=== PATIENT | female | born 1945 | race Caucasian/White ===

== ENCOUNTER 2019-08-12 15:40 | Inpatient (IN) | payer MEDICARE, SELFPAY ==
--- NOTE | ~2019-08-12 | CT_ITS ---
EXAMINATION:CT chest w con DATE: 08/14/2019 11:54 INDICATION: Hemoptysis. TECHNIQUE: Computed tomography (CT) of the chest was performed with 75 mg Omnipaque 350 intravenous c ontrast. Automated exposure control and iterative reconstruction technique were employed. The dose-le ngth product (DLP) was 212.71 mGy-cm. COMPARISON: CT abdomen and pelvis 08/12/2019 FINDINGS: The lungs demonstrate mild atelectasis. There is chronic elevation of right hemidiaphragm. No pleural effusion. The heart size is normal. There are coronary artery calcifications. No pericardi al effusion. There is contrast in the gallbladder, which is normal in size. There is thoracolumbar le voscoliosis and severe spondylosis. IMPRESSION: 1. No etiology for the patient's symptoms. Reviewed, dictated and finalized at location A. RINARY PATHOLOGIST
--- NOTE | ~2019-08-12 | XR_ITS ---
EXAMINATION: XR UGI w small bowel DATE: 08/13/2019 15:56 INDICATION: Lower abdominal pain with questionable small bowel wall thickening on CT TECHNIQUE: The patient drank thick barium. Conventional supine abdomen radiographs and fluoroscopy of the esophagus, stomach, and small bowel were performed. Fluoroscopy exposure time was 3.8 minutes. T he DAP for this procedure was 49.672 Gycm2. COMPARISON: CT from yesterday FINDINGS: UPPER GASTROINTESTINAL SERIES: There is no mass or stricture of the esophagus. Esophageal motility is normal. There is no hiatal her cristina. There was no gastroesophageal reflux with provocative maneuvers. The stomach shows a normal fold ing pattern. SMALL BOWEL SERIES: Transit time from the stomach to proximal colon was approximately 90. There is normal caliber and muc osal fold pattern throughout the small bowel. Terminal ileum is normal. No definite small bowel wall thickening is identified. No tethering or abnormal mass effect observed upon the small bowel with re al-time fluoroscopy. IMPRESSION: 1. Unremarkable examination. Reviewed, dictated and finalized at location A. OL PSYCHOMETRIST
--- NOTE | ~2019-08-12 | CT_ITS ---
EXAMINATION: CT abdomen pelvis w con DATE: 08/12/2019 19:54 INDICATION: Lower abdominal pain TECHNIQUE: Computed tomography (CT) of the abdomen and pelvis was performed with 100 mL Omnipaque-350 intravenous contrast. Automated exposure control and iterative reconstruction technique were employe d. The dose-length product was 480.76 mGy-cm. COMPARISON: 11/20/2016 FINDINGS: Elevation of the right hemidiaphragm. Bronchiectasis and mild dependent atelectasis the bilateral low er lobes. Heart size is normal. No pericardial or pleural effusion. No significant interval change in a 2.1 x 1.6 cm mixed fat and soft tissue density subareolar mass at the right breast. Liver, gallbla dder, spleen, pancreas and bilateral adrenal glands and kidneys are normal. A couple small fat-contai alma supraumbilical ventral hernias. Normal appendix. There is mild to moderate scattered colonic div erticulosis without adjacent inflammatory change to suggest diverticulitis. Anastomotic suture line a t the distal sigmoid colon. There is edematous wall thickening along the few loops of small bowel in the deep pelvis. No pneumatosis or bowel obstruction. The uterus is not identified and has likely bee n surgically resected. Bilateral adnexa are unremarkable. Bladder appears normal however portions of the bladder and right side of the deep pelvis are obscured by dense metallic streak artifact from a r ight total hip arthroplasty. No free intraperitoneal gas or fluid. No pathologically enlarged abdomin al or pelvic lymphadenopathy. There is mild scattered calcified atherosclerosis of the normal caliber aorta and a few of the other arteries. Mild S-shaped scoliosis and severe spondylosis of the thoraco lumbar spine. IMPRESSION: 1. Wall thickening of a few loops of small bowel in the deep pelvis consistent with enteritis which c ould be infectious, inflammatory or ischemic in etiology. 2. No significant interval change in a 2.1 x 1.6 cm right breast mass which favors a benign etiology but would recommend correlation with mammography. 3. Mild diverticulosis with a masslike suture line at the distal sigmoid colon suggesting prior sigmo idectomy. Reviewed, dictated and finalized at location A. BASE SECURITY ADMINISTRATOR IMPRESSION: 1. Wall thickening of a few loops of small bowel in the deep pelvis consistent with enteritis which could be infectious, inflammatory or ischemic in etiology. 2. No significant interval change in a 2.1 x 1.6 cm right breast mass which fav ors a benign etiology but would recommend correlation with mammography. 3. Mild diverticulosis with a masslike suture line at the distal sigmoid colon suggesting prior sigmoidectomy.
[2019-08-12 16:41] VITALS: BP 115/74; PULSE 84; RESP 16; TEMP 37.1; O2SAT 97
[2019-08-12 16:55] LABS: Basophils Absolute Auto 0.1 K/mm3 (0.0-0.1); Eosinophils Absolute Auto 0.2 K/mm3 (0-0.3); Eosinophils Percent Auto 2.9 % (0-4.4); Hematocrit 38.4 % (37.0-47.0); Hemoglobin 12.4 g/dL (12.0-15.0); Immature Granulocyte Absolute 0.01 K/mm3 (0.00-0.031); Immature Granulocyte Percent A 0.2 % (0-0.5); Lymphocytes Absolute Auto 1.64 K/mm3 (0.9-3.2); Lymphocytes Percent Auto 26.6 % (18.3-44.2); Mean Corpuscular HGB Conc 32.3 g/dl (32-36); Mean Corpuscular Hemoglobin 31.7 pg (26-34); Mean Corpuscular Volume 98.2 fl (80-100); Mean Platelet Volume 9.4 fl (7.4-10.4); Monocytes Absolute Auto 0.4 K/mm3 (0.1-0.6); Monocytes Percent Auto 6.5 % (2.6-8.5); Neutrophils Absolute Auto 3.9 K/mm3 (1.3-6.7); Neutrophils Percent Auto 62.8 % (45.5-73.1); Platelet Count Result 215 k/mm3 (150-375); Red Blood Count 3.91 M/mm3 (4.2-5.4); White Blood Count 6.2 K/mm3 (4.5-10.0)
[2019-08-12 17:13] LABS: Alanine Aminotransferase 22 U/L (4-35); Albumin Level 4.2 g/dL (3.5-5.1); Alkaline Phosphatase 79 U/L (38-126); Aspartate Amino Transferase 30 U/L (14-36); Bilirubin,Total 0.8 mg/dL (0.2-1.3); Blood Urea Nitrogen 23 mg/dL (7-17); Calcium 9.4 mg/dL (8.4-10.2); Carbon Dioxide 30 mmol/L (22-30); Chloride 100 mmol/L (98-107); Estimated CRCL calculation 31 ml/min; Estimated Glomerular Filt Rate 44; Glucose 89 mg/dL (65-105); Lipase 101 U/L (23-300); Potassium 4.4 mmol/L (3.4-5.0); Sodium 139 mmol/L (137-145)
[2019-08-12 18:11] LABS: Add Urine Microscopic? YES; Appearance Urine Clear (Clear); Bilirubin Urine Negative (Negative); Blood Urine Negative (Negative); Calcium Oxalate Crystals Urine Present /hpf; Color Urine Yellow (Yellow); Glucose Urine UA Negative (Negative); Ketones Urine Trace mg/dL (Negative); Leukocyte Esterase Ur 1+ LEU/UL (Negative); Mucus Urine Few /lpf; Nitrate Urine Negative (Negative); Protein Urine Negative (Negative); Specific Grav Ur 1.025 (1.001-1.035); Squamous Epithelial Cell Urine Few /hpf (Few); Urobilinogen Urine Negative mg/dL (<2.0)
--- NOTE | 2019-08-12 18:25 | ED.ABDPAIN ---
HPI - Abdominal Pain General Chief Complaint: Abdominal Pain Stated Complaint: abd pain Time Seen by Provider: 08/12/19 18:17 Source: patient and RN notes reviewed Mode of arrival: other Limitations: no limitations History of Present Illness HPI narrative: Pt is a 74 y/o female who presents to the ED with c/o mild lower abdominal pain that began Monday (08/10/19) evening. Pt states that her last BM was Monday. She believes that she may be constipated. Pt also reports hematochezia with blood clots present and two episodes of vomiting Monday, but denies dysuria. MD elicited complaint: abdominal pain Pertinent past history: constipation and diverticulitis Onset (ago): day(s) (2) Pain Consistency: constant Location: other (lower) Severity: mild Relieving factors: nothing Associated symptoms: vomiting (with two episodes on Monday (08/10/19)) and hematochezia (with blood clots present on Monday (08/10/19)) Related Data Allergies Allergy/AdvReac Type Severity Reaction Status Date / Time lidocaine Allergy Severe BECAME Verified 08/12/19 18:05 VERY SHAKEY, WENT TO ER adhesive tape Allergy Intermediate RASH Verified 08/12/19 18:05 codeine AdvReac Unknown KEEPS HER Verified 08/12/19 18:05 AWAKE Review of Systems Review of Systems: All systems reviewed & are unremarkable except as noted in HPI and below Gastrointestinal: Gastrointestinal: Reports abdominal pain (lower), Reports hematochezia (with blood clots present on Monday (08/10/19)) and Reports vomiting (two episodes on Monday (08/10/19)) Genitourinary: Genitourinary: Denies dysuria [facility] Past Medical History Medical History (Updated 08/12/19 @ 23:04 by Suhas Ernst MD) Anxiety Arthritis Bronchitis Carpal tunnel syndrome Colitis Constipation Cystocele DDD (degenerative disc disease) Depression Diverticulitis Dry eyes GERD (gastroesophageal reflux disease) HTN (hypertension) IBS (irritable bowel syndrome) Psoriasis (a type of skin inflammation) Rectal polyp Rectocele Volvulus Surgical History Surgical History (Updated 08/12/19 @ 18:49 by Jeanie Gambino) H/O colonoscopy History of bladder surgery History of carpal tunnel release History of colon resection History of hysterectomy History of right hip replacement Hx of tonsillectomy Social History Social History (Updated 08/12/19 @ 18:49 by Jeanie Gambino) Smoking status: Never smoker Exam Const: General: healthy appearing, no acute distress and well developed Nutritional Appearance: well nourished Orientation/consciousness: patient oriented x3 (alert) and Other orientation findings (Alert) Limitations: no limitations HENMT: Head: normocephalic and atraumatic Ears: external ears normal General nose exam: No nasal discharge present and no epistaxis Face and sinus: face symmetric Mouth: Yes lip normal, Yes tongue normal and Yes moist mucous membranes Throat: other (No exudate, no erythema) Eyes: Conjunctivae: conjunctivae normal Sclera: sclerae normal EOM: EOMs intact bilaterally Neck: Neck: full ROM, no lymphadenopathy and supple Thyroid: thyroid normal Chest: Chest palpation & inspection: no tenderness Resp: Effort & Inspection: normal respiratory effort Auscultation: clear to auscultation bilaterally, no rales, no rhonchi, no wheezes and other (breath sounds equal) Cardio: Rate: regular rate Rhythm: regular rhythm Heart sounds: no gallops and no murmurs GI: Inspection: non-distended GI Palp: Yes abdominal tenderness (mild lower), No Guarding due to palpation present (GI) and No Rebound tenderness present Auscultation: other (bowel sounds present) : General: Yes no CVA tenderness Back/Spine/Pelvis: Back: no CVA tenderness Thoracic/Lumbar Spine: thoracic and lumbar spine normal to inspection Skin: General skin exam: normal color and no rashes or lesions noted Neuro: General: patient oriented x3 (alert), moves all extremities and no focal motor de
[2019-08-12 20:17] VITALS: BP 134/80; PULSE 84; RESP 16; O2SAT 98
[2019-08-12] MEDS: LACTATED RINGERS 1,000 ML 999 ML IV CONT (22:07)
[2019-08-12 22:10] LABS: Lactic Acid Reflex 0.9 mmol/L (0.7-2.1)
[2019-08-12 22:47] LABS: Base Excess ABG 1.9 mEq/l (+/-2.0); Fractional Inspired Oxygen 21 %; Oxygen Content ABG 16.7 %vol (16.0-22.0); Oxygen Saturation ABG 97.1 % (95.0-100.0); PCO2 ABG 34.1 mmHg (35.0-45.0); PO2 ABG 84.9 mmHg (80.0-100.0); PO2 FiO2 Ratio Arterial Blood 4.04 %; Total Hemoglobin 12.3 g/dL (12.0-18.0); pH ABG 7.483 (7.350-7.450)
[2019-08-12 22:48] LABS: Device ROOM AIR; Modified Allen's Test Pass; Site Drawn RIGHT RADIAL
[2019-08-12 23:40] VITALS: BP 145/76; PULSE 81; RESP 16; TEMP 36.2; O2SAT 100
[2019-08-12 23:58] VITALS: BP 145/86; PULSE 81; RESP 18; TEMP 36.1; O2SAT 100
[2019-08-13 00:07] VITALS: BP 155/84; PULSE 71; RESP 16; TEMP 36.1; O2SAT 99; BMI 26.2
--- NOTE | 2019-08-13 00:07 | ADMGEN ---
This patient, Alisas Velarde, was admitted to Medical Room 348-01. Patient/family oriented to hospital policies and general routines including ID bracelet, bed and alarms, visiting hours, pain management, procedures, bathroom and other care routines, personal items, smoking policy, room service/diet, and visiting hours. Valuables list has been completed. Information on how to activate the Rapid Response Team has been discussed. Patient/Family are encouraged to report perceived risks to care and to ask questions if they do not understand what they are told or what they should do.
[2019-08-13] MEDS: LACTATED RINGERS 1,000 ML 125 ML IV CONT ×2 (00:45→17:13)
[2019-08-13 04:00] VITALS: BP 122/70; PULSE 58; RESP 16; TEMP 36.2; O2SAT 98
[2019-08-13 06:34] LABS: Basophils Absolute Auto 0.1 K/mm3 (0.0-0.1); Basophils Percent Auto 1.2 % (0.2-1.2); Eosinophils Absolute Auto 0.3 K/mm3 (0-0.3); Eosinophils Percent Auto 4.8 % (0-4.4); Hematocrit 32.5 % (37.0-47.0); Hemoglobin 10.6 g/dL (12.0-15.0); Immature Granulocyte Absolute 0.02 K/mm3 (0.00-0.031); Immature Granulocyte Percent A 0.4 % (0-0.5); Lymphocytes Absolute Auto 1.96 K/mm3 (0.9-3.2); Lymphocytes Percent Auto 37.7 % (18.3-44.2); Mean Corpuscular HGB Conc 32.6 g/dl (32-36); Mean Corpuscular Volume 98.2 fl (80-100); Mean Platelet Volume 9.3 fl (7.4-10.4); Monocytes Absolute Auto 0.5 K/mm3 (0.1-0.6); Monocytes Percent Auto 9.4 % (2.6-8.5); Neutrophils Absolute Auto 2.4 K/mm3 (1.3-6.7); Neutrophils Percent Auto 46.5 % (45.5-73.1); Platelet Count Result 184 k/mm3 (150-375); Red Blood Count 3.31 M/mm3 (4.2-5.4); Red Cell Distribution Width 12.8 % (11.5-14.5); White Blood Count 5.2 K/mm3 (4.5-10.0)
[2019-08-13 06:44] LABS: Blood Urea Nitrogen 22 mg/dL (7-17); Calcium 8.6 mg/dL (8.4-10.2); Carbon Dioxide 27 mmol/L (22-30); Chloride 103 mmol/L (98-107); Estimated CRCL calculation 33 ml/min; Estimated Glomerular Filt Rate 48; Glucose 103 mg/dL (65-105); Potassium 3.8 mmol/L (3.4-5.0); Sodium 138 mmol/L (137-145)
[2019-08-13 08:42] VITALS: BP 146/74; PULSE 65; RESP 18; TEMP 37.4; O2SAT 97
[2019-08-13] MEDS: metroNIDAZOLE 500 MG/ISO 100ML 500 MG/100 ML BAG 100 MG IVPB ×2 (11:30→17:10)
--- NOTE | 2019-08-13 12:30 | WPDGICN ---
Assessment and Plan Additional Plan This is a 74-year-old white female patient I am asked to see at the request of the hospitalist service. Patient admitted to the hospital yesterday from the emergency room. Patient reports over the last 2 weeks has had vague lower abdominal cramping. On Monday 2 days ago she developed vomiting.. She has not had a bowel movement for 2 weeks. At home she takes lactulose and Citrucel for her constipation. She presented to the emergency room last evening. CT scan suggested nonspecific small-bowel thickening. She also had thickening in the sigmoid where she previously had an anastomosis. Past medical history is significant for screening colonoscopy 2016 that was unremarkable. She recently had endoscopy by Dr. Bell in [place] for silent aspiration . Apparently this was unremarkable. She is uncertain whether she received any treatment for this. She reports having a twisted colon for which she had a sigmoid resection. She is chronically constipated for which she takes Citrucel and lactulose. Family history is noncontributory. Past medical history is significant for anxiety. Chronic constipation. Possible silent acid reflux. She has been treated for irritable bowel syndrome she has a distant history of diverticulitis. Current medications as listed include lactulose methotrexate, Reglan, famotidine, Prilosec, Cymbalta, allergies include lidocaine and codeine. Physical exam reveals her to be alert. Vital signs stable. She is anicteric. HEENT exam unremarkable. Lungs are clear to auscultation and percussion none. Heart is without murmur or extra sounds. Abdomen bowel sounds are present soft nontender with no hepatosplenomegaly. Rectal exam unremarkable. Impression 1. Abdominal pain. Pain now resolved. Clinically most likely related to constipation. She has had no bowel movement for [address] scan is reported from the emergency room suggesting nonspecific small-bowel thickening. And also thickening in area of prior sigmoid resection. These findings are nonspecific. Cannot be overlooked. Plan is for laxatives and small-bowel series. Colonoscopy will not be repeated unless bowel habits failed to improve or symptoms persist. 2. Abnormal CT scan. See above discussion. 3. Chronic constipation. Likely accounts for her abdominal pain. 4. Silent acid reflux. Recently described by a other gastroenterology service. 5. History of sigmoid volvulus. Status post sigmoid resection. Plan is for trial of laxatives and a small-bowel follow-through. We will follow with you. No obvious infection evident at this time. GI Consult Note Consult date/time: 08/13/19 12:30 HPI: Alissa Velarde is a 74 year old female [facility] Past Medical History Medical History (Updated 08/12/19 @ 23:04 by Suhas Ernst MD) Anxiety Arthritis Bronchitis Carpal tunnel syndrome Colitis Constipation Cystocele DDD (degenerative disc disease) Depression Diverticulitis Dry eyes GERD (gastroesophageal reflux disease) HTN (hypertension) IBS (irritable bowel syndrome) Psoriasis (a type of skin inflammation) Rectal polyp Rectocele Volvulus Surgical History Surgical History (Updated 08/12/19 @ 18:49 by Jeanie Gambino) H/O colonoscopy History of bladder surgery History of carpal tunnel release History of colon resection History of hysterectomy History of right hip replacement Hx of tonsillectomy Social History Social History (Updated 08/12/19 @ 18:49 by Jeanie Gambino) Smoking status: Never smoker Second hand tobacco smoke exposure: No Alcohol intake: never Substance use: never Gender identity (if verbalized by the patient): Female Spiritual care concerns: No Agree to blood products: No Meds Home Medications and Allergies Home Medications Medication Instructions Recorded Confirmed Type ascorbic acid (vitamin C) [Vitamin 1
[2019-08-13] MEDS: PANTOPRAZOLE SODIUM IV 40 MG VIAL IV PUSH (12:31)
[2019-08-13 16:16] VITALS: BP 120/73; PULSE 61; RESP 16; TEMP 37; O2SAT 100
--- NOTE | 2019-08-13 18:23 | PM.IMHP ---
H&P: HPI History of Present Illness Chief complaint: COLITIS Narrative: Alissa Velarde is a 74 year old female with PMH significant for volvulus s/p small bowel resection in 2013, IBS, diverticulosis, GERD, HTN not on any antihypertensives, constipation, psoriasis on weekly methotrexate and folic acid, degenerative disc disease, and arthritis who presented to the ED with c/o mild, cramping lower abdominal pain that started last week. She denies fever and chills. She denies dysuria, frequency, and urgency. She reports a long hx of constipation. She was previously on lactulose but states that this was discontinued 2 weeks ago and she was started on citrucel and sucralfate. She reports that her last completely normal bowel movement was approximately 2 weeks ago. She reports that Monday, she had a small bowel movement with bright red blood and what appeared to be clots of blood. She also notes three episodes of vomiting that started late Monday night and continued to Monday. She denies hematemesis or vomiting of feculent material. She denies diarrhea. She reports that her granddaughter also developed vomiting after she did. They all ate at [employer] Monday. She denies a hx of bowel claudication or fear of eating. She also reports one episode of coughing up what looked like bright red blood mixed with phlegm (approximately 1 tablespoon) and an episode of bloody nasal drainage late last week (she believes or Monday). She reports this was followed by a few episodes of light pink sputum and denies any further occurrences. She denies recent travel. She reports hoarseness and was referred to ENT and GI by her PCP. She reports that she had an EGD by Dr. Bell 06/2019 and was diagnosed with silent GERD. Most recent colonoscopy was August [address] Gordon and revealed diverticulosis. Initial workup in the ED revealed WCC 6.2, Hb 12.4, platelet count of 215, sodium 139, potassium 4.4, Cr 1.2, BUN 23, lactic acid 0.9, bilirubin 0.8, AST 30, ALT 22, ALP 79, and lipase 101. CT abd/pelvis with contrast was ordered and revealed edematous wall thickening of a few loops of small bowel consistent with enteritis without evidence of pneumatosis or obstruction. Review of Systems Review of Systems: Narrative: Constitutional: Denies fever, chills, fatigue, and appetite change. Eyes: Denies acute vision change. Reports that she is due for an eye exam. ENT: Denies change in hearing. Denies nasal congestion. Reports hoarseness and has seen ENT who reports that this is due to GERD. Chest: No hard mass appreciated to palpation of the right breast. No skin change or tethering Cardiovascular: Denies palpitations, chest pain, PND, orthopnea, and dyspnea with exertion. Respiratory: Reports chronic non-productive cough. Denies SOB. Gastrointestinal: Reports lower abdominal pain that is cramping in nature. Denies diarrhea. Reports long-standing constipation. Reports hematochezia and passage of possible clots in stool Monday. Genitourinary: Denies dysuria, frequency, urgency, and hesitancy. Denies flank tenderness. Musculoskeletal: Reports chronic back and neck pain due to arthritis. Reports chronic knee and hip pain due to arthritis. Skin: Denies lesions and wounds. Neurologic: Denies focal weakness, paresthesias, confusion, and speech change. Psychiatric: Denies mood change. Hematologic: Denies easy bruising and bleeding. [facility] Past Medical History Medical History Anxiety Arthritis Bronchitis Carpal tunnel syndrome Colitis Constipation Cystocele DDD (degenerative disc disease) Depression Diverticulitis Dry eyes GERD (gastroesophageal reflux disease) HTN (hypertension) IBS (irritable bowel syndrome) Psoriasis (a type of skin inflammation) Rectal polyp Rectocele Volvulus Surgical History Surgical History H/O colonoscopy History of bladder anmol
[2019-08-13] MEDS: SUCRALFATE 1 GM TABLET BY MOUTH (22:12)
[2019-08-13 22:15] VITALS: PULSE 61; RESP 16; O2SAT 100
[2019-08-14] VITALS: BP 148/71; PULSE 66; RESP 16; TEMP 36.4; O2SAT 97
[2019-08-14] MEDS: metroNIDAZOLE 500 MG/ISO 100ML 500 MG/100 ML BAG 100 MG IVPB ×2 (01:03→06:13)
--- NOTE | 2019-08-14 01:04 | PC.NURSE ---
PT refused to take all but one 2100 med stated she didnt want to get stuck paying hospital pricing for her medications. I tried to educate her on the reason she should take the medications, since they were all home meds. However pt stated she should be going home soon and will take them then. Carolann made aware of pts refusal.
[2019-08-14 06:00] VITALS: BP 113/57; PULSE 56; RESP 16; TEMP 36.2; O2SAT 96
[2019-08-14 06:04] LABS: Basophils Absolute Auto 0.1 K/mm3 (0.0-0.1); Basophils Percent Auto 1.4 % (0.2-1.2); Eosinophils Absolute Auto 0.3 K/mm3 (0-0.3); Eosinophils Percent Auto 7.1 % (0-4.4); Hematocrit 33.6 % (37.0-47.0); Hemoglobin 11.1 g/dL (12.0-15.0); Lymphocytes Absolute Auto 1.69 K/mm3 (0.9-3.2); Mean Corpuscular Hemoglobin 32.6 pg (26-34); Mean Corpuscular Volume 98.5 fl (80-100); Mean Platelet Volume 9.5 fl (7.4-10.4); Monocytes Absolute Auto 0.6 K/mm3 (0.1-0.6); Monocytes Percent Auto 13.5 % (2.6-8.5); Neutrophils Absolute Auto 1.6 K/mm3 (1.3-6.7); Platelet Count Result 180 k/mm3 (150-375); Red Blood Count 3.41 M/mm3 (4.2-5.4); Red Cell Distribution Width 12.8 % (11.5-14.5); White Blood Count 4.2 K/mm3 (4.5-10.0)
--- NOTE | 2019-08-14 07:56 | WPDGIPROGNO ---
Progress Note: A&P Additional Plan Patient alert and comfortable this morning. Tolerating diet with no difficulties. She has had no recurrent abdominal pain. Still reports no recent bowel movement. Physical exam reveals her to be alert. Afebrile. Vital signs stable. HEENT exam unremarkable she is anicteric. Lungs are clear to auscultation and percussion. Heart is without murmur or extra sounds. Abdominal exam bowel sounds present soft nontender with no organomegaly. Impression 1. Constipation. No bowel movement for 2 weeks. Plan is for MiraLax to be taken daily. Magnesium citrate will be given today. Reglan has been started but should be only given for short time period 2. Abnormal CT scan. Nonspecific findings suggest small-bowel thickening. Small-bowel follow-through obtain yesterday was normal. This is likely a spurious finding. Plan is to increase diet and activity. Magnesium citrate and other laxatives will be given to encourage bowel movement. Outpatient follow-up encourage. Antibiotics should be discontinued. Subjective Date/time seen: 08/14/19 07:56 Objective Data Vital Signs Vital Signs: Vital Signs - 24 hr 08/13/19 08:42 08/13/19 16:16 08/13/19 22:15 Temperature 37.4 C 37.0 C Pulse Rate 65 61 61 Respiratory Rate 18 16 16 Blood Pressure 146/74 H 120/73 Pulse Oximetry 97 100 100 08/14/19 00:00 08/14/19 06:00 Temperature 36.4 C L 36.2 C L Pulse Rate 66 56 L Respiratory Rate 16 16 Blood Pressure 148/71 H 113/57 L Pulse Oximetry 97 96 Intake/Output Intake/Output: Intake & Output 08/11/19 08/12/19 08/13/19 08/14/19 23:59 23:59 23:59 23:59 Intake Total 1050 1980 550 Output Total 575 Balance 1050 1405 550 Meds/Results Medications: Active Medications Generic Name Dose Route Start Last Admin Trade Name Freq PRN Reason Stop Dose Admin Acetaminophen 650 mg 08/12/19 22:56 Tylenol Tablet PO Q4H PRN Mild Pain (1-3) or Fever Cyclosporine 1 drop 08/13/19 21:00 08/13/19 22:31 Restasis EACH EYE Not Given Q12HR [facility] Duloxetine HCl 30 mg 08/13/19 21:00 08/13/19 22:31 Cymbalta PO Not Given Q12HR [facility] Famotidine 20 mg 08/13/19 21:00 08/13/19 22:31 Pepcid PO Not Given Q12HR [facility] Folic Acid 1 mg 08/14/19 09:00 Folic Acid PO DAILY [facility] Lactated Ringer's 1,000 mls @ 125 mls/hr 08/12/19 23:00 08/14/19 02:15 Lr - Lactated Ringers Iv IV CONT 125 mls/hr .Q8H [facility] Infusion Metronidazole 500 mg in 100 mls @ 100 mls/hr 08/13/19 12:00 08/14/19 07:13 Flagyl 500 Mg/Iso Soln 100 Ml IVPB Infused Q6HR [facility] Infusion Ceftriaxone Sodium/Dextrose 1 gm in 50 mls @ 100 mls/hr 08/13/19 21:00 08/14/19 01:04 Rocephin 1 Gm/D5w 50 Ml IVPB Infused HS [facility] Infusion Pantoprazole Sodium 40 mg 08/13/19 21:00 08/13/19 22:32 Protonix PO Not Given Q12HR [facility] Polyethylene Glycol 17 gm 08/14/19 09:00 Miralax PO QAM [facility] Sucralfate 1 gm 08/13/19 21:00 08/13/19 22:12 Carafate BY MOUTH 1 gm HS [facility] Administration Radiology Results: ITS Impressions Abdomen/Pelvis CT 08/12/19 20:01 IMPRESSION: 1. Wall thickening of a few loops of small bowel in the deep pelvis consistent with enteritis which could be infectious, inflammatory or ischemic in etiology. 2. No significant interval change in a 2.1 x 1.6 cm right breast mass which favors a benign etiology but would recommend correlation with mammography. 3. Mild diverticulosis with a masslike suture line at the distal sigmoid colon suggesting prior sigmoidectomy. Upper GI and Small Bowel X-Ray 08/13/19 16:20 IMPRESSION: 1. Unremarkable examination. Labs Labs: Laboratory Results - last 24 hr 08/14/19 05:52 WBC 4.2 L RBC 3.41 L Hgb 11.1 L Hct 33.6 L MCV 98.5 MCH 32.6 MCHC 33.0 RDW 12.8 Plt Count 180 MPV 9.5 Immature Gran % (Auto) 0.0 Neut % (Auto) 38.0 L Lymph % (Auto) 40.0 Ashley % (Auto) 13.5 H Eos % (Au
[2019-08-14] MEDS: LACTATED RINGERS 1,000 ML 125 ML IV CONT (09:41)
[2019-08-14] MEDS: DULOXETINE HCL 30 MG CAPSULE.DR PO (09:47)
[2019-08-14] MEDS: FAMOTIDINE 20 MG TABLET PO (09:47)
[2019-08-14] MEDS: PANTOPRAZOLE 40 MG TABLET PO (09:47)
[2019-08-14] MEDS: FOLIC ACID 1 MG TABLET PO (09:47)
[2019-08-14] MEDS: polyethylene glycoL 3350 17 GM POWD.PACK PO (09:48)
[2019-08-14] MEDS: MAGNESIUM CITRATE 300 ML BTL PO (10:01)
[2019-08-14 10:43] LABS: Blood Urea Nitrogen 12 mg/dL (7-17); Calcium 9.2 mg/dL (8.4-10.2); Carbon Dioxide 28 mmol/L (22-30); Chloride 101 mmol/L (98-107); Estimated CRCL calculation 37 ml/min; Estimated Glomerular Filt Rate 54; Glucose 126 mg/dL (65-105); Potassium 4.3 mmol/L (3.4-5.0); Sodium 140 mmol/L (137-145)
[2019-08-14 13:44] LABS: IFOB Positive Control Positive; Immunochemical Fecal Occult Bl Positive (N)
--- NOTE | 2019-08-14 20:26 | PM.DS ---
DS: Diagnosis Admitting Diagnosis Admitting Diagnosis: Noninfective gastroenteritis and colitis, unspecified Discharge Diagnosis (1) Enteritis: Code(s): K52.9 - Noninfective gastroenteritis and colitis, unspecified Status: Acute Assessment and Plan: Hospital Discharge Summary Mrs. Velarde is a 74 y.o. female with PMH significant for volvulus s/p small bowel resection in 2013, IBS, diverticulosis, GERD, HTN not on any antihypertensives, constipation, psoriasis on weekly methotrexate and folic acid, degenerative disc disease, and arthritis who presented to the ED with c/o mild, cramping lower abdominal pain that started last week. She reported a long hx of constipation. Lactulose was recently discontinued approximately 2 weeks ago because she felt it was not working and she was started on citrucel. She also reported 3 episodes of vomiting starting Monday night and into Monday as well as a small bowel movement with bright red blood and possible clot. She had an EGD 06/[address] Bell which revealed gastritis. She also had a colonoscopy by Dr. Gordon in 2016 which revealed diverticulosis. In addition, she c/o an episode of coughing up what she thought was blood. Initial workup in the ED revealed WCC 6.2, Hb 12.4, platelet count of 215, sodium 139, potassium 4.4, Cr 1.2, BUN 23, lactic acid 0.9, bilirubin 0.8, AST 30, ALT 22, ALP 79, and lipase 101. CT abd/pelvis with contrast was ordered and revealed edematous wall thickening of a few loops of small bowel consistent with enteritis without evidence of pneumatosis or obstruction. The pt was admitted to the hospitalist service for further evaluation and treatment. She was started on empiric antibiotics for possible gastroenteritis since her family also reported similar sx following a meal together. Stool cultures were obtained. GI, Dr. Gordon, was consulted. He felt that her sx were likely due to constipation and did not feel they were due to infection. Antibiotics were discontinued. He recommended laxative trial and small bowel series. Small bowel series revealed normal caliber and mucosal fold pattern of the small bowel without definite small bowel wall thickening, tethering, or mass effect. She had multiple bowel movements following trial of mag citrate laxitive without hematochezia or melena following laxative trial. Her pain resolved completely and she did not have any further nausea or vomiting. Dr. Gordon did not recommend colonoscopy during this admission but she will need to follow-up outpatient to determine if colonoscopy is indicated. Her Hb remained stable. She will need to follow-up with Dr. Gordon in 2-3 weeks or sooner if sx return. She also c/o cough with bloody sputum late in the previous week so CT chest was ordered without evidence of mass or infection. She had no complaints of dyspnea, chest pain, or pleuritic pain. Upon chart review, she also complained of this in June at her GI evaluation so this does not appear to be a new complaint. She will need to follow-up outpatient with her PCP. CT abd/pelvis also revealed a right breast mass (2.1x2.6cm). The pt endorses a known hx of this mass. CT abd/pelvis from 11/20/16 revealed that it was 1.5cm. I recommended right breast US and ordered the study to be completed inpatient but the pt refused to have it completed. She stated that she wanted to follow-up outpatient for the mass. She will need to have follow-up with her PCP for this. I scheduled her an appt with her PCP and will also notify their office of our recommendations. She was advised to begin miralax and citrucel for her bowel regimen. She was advised to increase her activity level and maintain adequate fluid intake. She was advised to consume a high fiber diet. She was advised to discontinue meloxicam and take tylenol for her arthritis. Additional instructions are listed below. (2) Abdominal pain: Code(s): R10.9 - Unspecified abdominal pain Status: Acute
--- NOTE | 2019-08-19 14:19 | PC.NURSE ---
Blood cx are negative.
== END 2019-08-14 18:12 | disposition home or self-care (01) | DRG 392 ==
LOC: ANHED 23:04 → ANH3MED 23:34
PROVIDERS: Physician Assistant; Admitting Provider Internal Medicine; Emergency Provider Emergency Medicine; PCP Family Medicine; Visit Provider Internal Medicine
DX: K59.09 Other constipation (principal); R04.2 Hemoptysis; Z90.49 Acquired absence of other specified parts of digestive tract; K57.90 Diverticulosis of intestine, part unspecified, without perforation or abscess without bleeding; K21.9 Gastro-esophageal reflux disease without esophagitis; I10 Essential (primary) hypertension; K58.1 Irritable bowel syndrome with constipation; M19.90 Unspecified osteoarthritis, unspecified site; L40.9 Psoriasis, unspecified; Z90.710 Acquired absence of both cervix and uterus; Z96.641 Presence of right artificial hip joint; N63.10 Unspecified lump in the right breast, unspecified quadrant; J47.9 Bronchiectasis, uncomplicated; F41.9 Anxiety disorder, unspecified
CPT/HCPCS: 36415; 36600; 71260; 74177; 74240; 74248; 80048; 80053; 81001; 82274; 82805; 83605; 83690; 85025; 87015; 87045; 87046; 87086; 87269; 87272; 87427; 89055; 96365; 96374; 96375; 97165; 99285; A9270; C9113; G0378; J0696; J7120; Q9967

== ENCOUNTER 2020-12-08 14:58 | Emergency (ER) | payer MEDICARE, SELFPAY ==
--- NOTE | ~2020-12-08 | XR_ITS ---
EXAMINATION: XR lumbar spine min 4V DATE: 12/08/2020 16:58 INDICATION: Low back pain. TECHNIQUE: 5 views of lumbar spine were obtained. COMPARISON: None. FINDINGS: There is 16 degrees dextroscoliosis of lumbar spine. Vertebral body heights are normal. The re is interbody fusion at L5-S1. There is severely decreased disc height from T12-L1 through L4-L5 wi th endplate remodeling. There is multilevel severe facet joint osteoarthritis. Partially visualized i s a total right hip arthroplasty. IMPRESSION: 1. Severe lumbar spondylosis. 2. Lumbar dextroscoliosis. Reviewed, dictated and finalized at location A.
--- NOTE | ~2020-12-08 | XR_ITS ---
EXAMINATION: XR hip LT 2V w AP pelvis DATE: 12/08/2020 16:58 INDICATION: Left hip pain. TECHNIQUE: An anteroposterior view of the pelvis and 2 views of left hip were obtained. COMPARISON: None. FINDINGS: There is lumbar dextroscoliosis and severe spondylosis. There is a total right hip arthropl asty in near-anatomic alignment. No fracture. There is mild left hip osteoarthritis. IMPRESSION: 1. Mild left hip osteoarthritis. 2. Total right hip arthroplasty in near-anatomic alignment. Reviewed, dictated and finalized at location A.
[2020-12-08 15:02] VITALS: BP 131/70; PULSE 76; RESP 16; TEMP 36.4; O2SAT 95
--- NOTE | 2020-12-08 16:39 | ED.GENADULT ---
HPI - General Adult General Chief complaint: Extremity Injury, Lower Stated complaint: Back Pain radiating down L leg Time Seen by Provider: 12/08/20 15:27 Source: patient and RN notes reviewed Mode of arrival: ambulatory Limitations: no limitations History of Present Illness HPI narrative: Patient is a 75-year-old female who presents to emergency department for evaluation of midline low back pain over the last several days now radiating to the left thigh patient denies injury or trauma does have history of arthritis and prior back issues denies injury or trauma patient. On arrival does not appear distressed walks with a walking cane has been taking her home medications with minimal improvement Related Data Home Medications Medication Instructions Recorded Confirmed Centrum Silver Women 1 tablet PO DAILY 08/13/19 08/13/19 Citrucel 500 mg PO DAILY 08/13/19 08/13/19 Restasis 1 drp OPHTHALMIC (EYE) Q12H 08/13/19 08/13/19 ascorbic acid (vitamin C) [Vitamin 1 g PO DAILY 08/13/19 08/13/19 C] cholecalciferol (vitamin D3) 1,000 unit PO DAILY 08/13/19 08/13/19 [Vitamin D3] duloxetine [Cymbalta] 30 mg PO BID 08/13/19 08/13/19 famotidine 20 mg PO BID 08/13/19 08/13/19 folic acid 1 mg PO DAILY 08/13/19 08/13/19 glucosamine rice 2KCl-chondroit 2 tablet PO BID 08/13/19 08/13/19 [Glucosamine-Chondroitin 3X Str] methotrexate sodium 25 mg PO WEEKLY 08/13/19 08/13/19 omeprazole 40 mg PO DAILY 08/13/19 08/13/19 sucralfate 1 g HS 08/13/19 08/13/19 Allergies Allergy/AdvReac Type Severity Reaction Status Date / Time lidocaine Allergy Severe BECAME Verified 08/12/19 18:05 VERY SHAKEY, WENT TO ER adhesive tape Allergy Intermediate RASH Verified 08/12/19 18:05 codeine AdvReac Unknown KEEPS HER Verified 08/12/19 18:05 AWAKE Review of Systems Review of Systems: All systems reviewed & are unremarkable except as noted in HPI and below PMFSH Past Medical History Medical History Anxiety Arthritis Bronchitis Carpal tunnel syndrome Colitis Constipation Cystocele DDD (degenerative disc disease) Depression Diverticulitis Dry eyes GERD (gastroesophageal reflux disease) Hemoptysis HTN (hypertension) IBS (irritable bowel syndrome) Psoriasis (a type of skin inflammation) Rectal polyp Rectocele Volvulus Surgical History Surgical History H/O colonoscopy History of bladder surgery History of carpal tunnel release History of colon resection History of hysterectomy History of right hip replacement Hx of tonsillectomy Social History Social History Smoking status: Never smoker Second hand tobacco smoke exposure: No Alcohol intake: never Substance use: never Gender identity (if verbalized by the patient): Female Spiritual care concerns: No Agree to blood products: No Exam Narrative: Exam Narrative: GENERAL: Well-appearing, well-nourished, and in no acute distress. HEAD: Normocephalic, atraumatic. EYES: PERRLA and EOMI. ENT: Nares clear, no rhinorrhea or epistaxis. Mucous membranes moist. CHEST: Clear to auscultation. No respiratory distress. No wheezes rales or rhonchi HEART: Regular rate and rhythm. No murmur heard. Normal peripheral pulses. EXTREMITIES: Normal range of motion. No edema. Midline lumbar tenderness in the lower lumbar segments SKIN: Warm, dry, no rash. NEURO: No focal deficits. Alert and oriented x3. Cranial nerves II through XII grossly intact. No tenderness or deformity of the left thigh or hip PSYCH: Normal mood and affect. Course Course Emergency Course: Patient evaluated for what was described as musculoskeletal back pain with what sounds like radicular symptoms had imaging performed and will be sent home treated medically and advised to follow with her orthopedist and primary care and given reasons to
== END 2020-12-08 18:05 | disposition home or self-care (01) ==
PROVIDERS: Emergency Provider Emergency Medicine; PCP Family Medicine
DX: M54.5 Low back pain (principal); M79.605 Pain in left leg; K21.9 Gastro-esophageal reflux disease without esophagitis; I10 Essential (primary) hypertension; K58.9 Irritable bowel syndrome, unspecified; F41.9 Anxiety disorder, unspecified; Z87.19 Personal history of other diseases of the digestive system; Z96.641 Presence of right artificial hip joint; Z90.49 Acquired absence of other specified parts of digestive tract; M16.12 Unilateral primary osteoarthritis, left hip; M47.816 Spondylosis without myelopathy or radiculopathy, lumbar region
CPT/HCPCS: 72110; 73502; 99284

== ENCOUNTER 2021-01-07 13:34 | Outpatient (CLI) | payer MEDICARE, SELFPAY ==
--- NOTE | ~2021-01-07 | CT_ITS ---
EXAMINATION: CT brain wo con DATE: 01/07/2021 14:03 INDICATION: Repeated falls. Fatigue. TECHNIQUE: Computed tomography (CT) of the head was performed without intravenous contrast. The mA wa s adjusted according to patient size. Iterative reconstruction technique was employed. Exam dose: 52 9.67 mGy-cm total exam DLP. COMPARISON: None FINDINGS: Bilateral carotid siphon internal carotid artery calcifications. There is nonspecific diminished attenuation of the cerebral white matter, likely due to chronic small vessel ischemic changes. No intracranial mass lesion or hemorrhage or cerebrovascular accident is evident. No midline shift or mass effect effect. Minimal bilateral basal ganglia calcification. No subdural or epidural hematoma. No fracture or bone destruction of the cranial vault. The mastoid air cells and included paranasal sinuses are normally developed and aerated. IMPRESSION: Cerebral atherosclerosis and chronic small vessel ischemic changes of the cerebral white matter Reviewed, dictated and finalized at Location [facility]. Reviewed, dictated and finalized at location A.
== END 2021-01-07 13:35 | disposition home or self-care (01) ==
PROVIDERS: PCP Family Medicine; Visit Provider Family Medicine
DX: R29.6 Repeated falls (principal); G62.9 Polyneuropathy, unspecified; R53.83 Other fatigue; I67.2 Cerebral atherosclerosis
CPT/HCPCS: 70450

== ENCOUNTER 2021-01-26 00:59 | Day surgery (SDC) | payer MEDICARE, SELFPAY ==
[2021-01-15 14:55] VITALS: BMI 27.5
[2021-01-26 10:50] VITALS: BP 120/58; PULSE 79; RESP 16; TEMP 36.2; O2SAT 93; BMI 26.9
--- NOTE | 2021-01-26 10:52 | WPDGICN ---
Assessment and Plan Assessment and plan (1) LGI bleed: Code(s): K92.2 - Gastrointestinal hemorrhage, unspecified Status: Acute Assessment and Plan: Patient complains of rectal bleeding describing bright red blood per rectum. Plan is for colonoscopy to evaluate more thoroughly. High-fiber diet is encouraged. (2) Constipation: Code(s): K59.00 - Constipation, unspecified Status: Acute Assessment and Plan: Patient has complaints of constipation. She does have a history of partial colon resection because of sigmoid volvulus. Fiber type stool softeners are encourage on a regular basis. Colonoscopy to be performed further recommendations may be given subsequently. GI Consult Note Consult date/time: 01/26/21 10:52 HPI: Alissa Hutchinson is a 75 year old female Presents for colonoscopy. Patient is a difficult historian. She reports a history of bright red blood per rectum sometimes a great deal as described. Patient also has a tendency towards constipation. Apparently bowel habits have improved recently. She has a past history is sigmoid volvulus requiring sigmoid resection of the colon. Her family history is noncontributory. Review of Systems Review of Systems: All systems reviewed & are unremarkable except as noted in HPI and below PMFSH Past Medical History Medical History Anxiety Arthritis Bronchitis Carpal tunnel syndrome Colitis Constipation Cystocele DDD (degenerative disc disease) Depression Diverticulitis Dry eyes GERD (gastroesophageal reflux disease) Hemoptysis HTN (hypertension) IBS (irritable bowel syndrome) Psoriasis (a type of skin inflammation) Rectal polyp Rectocele Volvulus Surgical History Surgical History H/O colonoscopy History of bladder surgery History of carpal tunnel release History of colon resection History of hysterectomy History of right hip replacement Hx of tonsillectomy Social History Social History Smoking status: Never smoker Second hand tobacco smoke exposure: No Alcohol intake: never Substance use: never Substance use type: does not use Living arrangements: alone Gender identity (if verbalized by the patient): Female Spiritual care concerns: No Agree to blood products: No Meds Home Medications and Allergies Home Medications Medication Instructions Recorded Confirmed Type Centrum Silver Women 1 tablet PO DAILY 08/13/19 01/25/21 History Restasis 1 drp OPHTHALMIC (EYE) Q12H 08/13/19 01/25/21 History duloxetine [Cymbalta] 30 mg PO BID 08/13/19 01/25/21 History folic acid 1 mg PO DAILY 08/13/19 01/25/21 History glucosamine rice 2KCl-chondroit 2 tablet PO BID 08/13/19 01/25/21 History [Glucosamine-Chondroitin 3X Str] methotrexate sodium 25 mg PO WEEKLY 08/13/19 01/25/21 History acetaminophen [Mapap 650 mg PO Q4H PRN 14 Days #14 08/14/19 01/25/21 Rx (acetaminophen)] tablet acetaminophen [Tylenol Arthritis 650 mg PO Q12H PRN #7 tablet 12/08/20 01/25/21 Rx Pain] meloxicam 15 mg PO DAILY 01/15/21 01/25/21 History Allergies Allergy/AdvReac Type Severity Reaction Status Date / Time lidocaine Allergy Severe BECAME Verified 01/26/21 10:48 VERY SHAKEY, WENT TO ER adhesive tape Allergy Intermediate RASH Verified 01/26/21 10:48 codeine AdvReac Unknown KEEPS HER Verified 01/26/21 10:48 AWAKE Exam Narrative: Physical exam reveals patient be alert. Vital signs stable. HEENT exam is unremarkable. Patient is anicteric. Lungs are clear to auscultation and percussion. Heart is without murmur or extra sounds. Abdominal exam bowel sounds present soft nontender with no hepatosplenomegaly. Digital external rectal exam is normal.
--- NOTE | 2021-01-26 10:57 | WPDANESEPPF ---
Anes - Initial Pre Proc Eval Procedure: Operation Date: 01/26/21 12:00 Proposed Procedures p Colonoscopy - Suhas Gordon MD Date/Time: 01/26/21 10:57 Surgeon: Suhas Gordon MD Pre Op Diagnosis: Rectal bleed Patient Data Age: 75 Gender: F Height: 1.63 m Weight: 71 kg Last Vital Signs Temp 36.2 C L 01/26/21 10:50 Pulse 79 01/26/21 10:50 Resp 16 01/26/21 10:50 BP 120/58 L 01/26/21 10:50 Pulse Ox 93 01/26/21 10:50 Allergies Allergy/AdvReac Type Severity Reaction Status Date / Time lidocaine Allergy Severe BECAME Verified 01/26/21 10:48 VERY SHAKEY, WENT TO ER adhesive tape Allergy Intermediate RASH Verified 01/26/21 10:48 codeine AdvReac Unknown KEEPS HER Verified 01/26/21 10:48 AWAKE Home Medications Medication Instructions Recorded Confirmed Type Centrum Silver Women 1 tablet PO DAILY 08/13/19 01/25/21 History Restasis 1 drp OPHTHALMIC (EYE) Q12H 08/13/19 01/25/21 History duloxetine [Cymbalta] 30 mg PO BID 08/13/19 01/25/21 History folic acid 1 mg PO DAILY 08/13/19 01/25/21 History glucosamine rice 2KCl-chondroit 2 tablet PO BID 08/13/19 01/25/21 History [Glucosamine-Chondroitin 3X Str] methotrexate sodium 25 mg PO WEEKLY 08/13/19 01/25/21 History acetaminophen [Mapap 650 mg PO Q4H PRN 14 Days #14 08/14/19 01/25/21 Rx (acetaminophen)] tablet acetaminophen [Tylenol Arthritis 650 mg PO Q12H PRN #7 tablet 12/08/20 01/25/21 Rx Pain] meloxicam 15 mg PO DAILY 01/15/21 01/25/21 History Patient hx anesthesia problems: none Family hx anesthesia problems: none PMFSH Past Medical History Medical History Anxiety Arthritis Bronchitis Carpal tunnel syndrome Colitis Constipation Cystocele DDD (degenerative disc disease) Depression Diverticulitis Dry eyes GERD (gastroesophageal reflux disease) Hemoptysis HTN (hypertension) IBS (irritable bowel syndrome) Psoriasis (a type of skin inflammation) Rectal polyp Rectocele Volvulus Surgical History Surgical History H/O colonoscopy History of bladder surgery History of carpal tunnel release History of colon resection History of hysterectomy History of right hip replacement Hx of tonsillectomy Social History Social History Smoking status: Never smoker Second hand tobacco smoke exposure: No Alcohol intake: never Substance use: never Substance use type: does not use Living arrangements: alone Gender identity (if verbalized by the patient): Female Spiritual care concerns: No Agree to blood products: No Anes - Eval Final PreProcedure Day of Procedure 01/26/21 10:57 Patient weight: overweight Heart: regular rate and rhythm Lungs: clear to auscultation Airway: Mallampati scale class II Neurological: alert and oriented Last oral intake: >/= 8 hours ASA classification: III Emergent: no Anesthetic plan: proceed Anesthesia type and monitoring: general GIVS and standard monitoring Informed Consent: The patient's anesthetic plan and its attendant risks and benefits were discussed with the patient/family/POA. Questions were solicited and answers provided to the satisfaction of the patient/family/POA.
[2021-01-26] MEDS: LACTATED RINGERS 1,000 ML 150 ML IV CONT (11:04)
[2021-01-26 11:58] VITALS: BP 92/52; PULSE 54; RESP 16; O2SAT 93
[2021-01-26 12:08] VITALS: BP 92/52; PULSE 54; RESP 16; O2SAT 93
[2021-01-26 12:18] VITALS: BP 121/70; PULSE 67; RESP 16; O2SAT 93
== END 2021-01-26 12:40 | disposition home or self-care (01) ==
PROVIDERS: PCP Family Medicine; Visit Provider Internal Medicine Gastroenterology
PROC: 0DJD8ZZ Inspection of Lower Intestinal Tract, Via Natural or Artificial Opening Endoscopic (ICD-10-PCS; CPT 45378; principal; 2021-01-26 12:00)
DX: K92.1 Melena (principal); K64.8 Other hemorrhoids; K57.30 Diverticulosis of large intestine without perforation or abscess without bleeding; M19.90 Unspecified osteoarthritis, unspecified site; F41.8 Other specified anxiety disorders; K21.9 Gastro-esophageal reflux disease without esophagitis; R04.2 Hemoptysis; I10 Essential (primary) hypertension; K58.9 Irritable bowel syndrome, unspecified; L40.9 Psoriasis, unspecified
CPT/HCPCS: 45378; J2704; J7120

== ENCOUNTER 2021-04-12 14:01 | Outpatient (CLI) | payer MEDICARE, SELFPAY ==
--- NOTE | ~2021-04-12 | XR_ITS ---
EXAMINATION: XR hand RT min 3V INDICATION: Right hand pain TECHNIQUE: Three views of the right hand are obtained. COMPARISON: None available FINDINGS: There is advanced osteoarthritis at the first carpometacarpal joint, the first and second m etacarpophalangeal joints, the first, third, and fourth proximal interphalangeal joints, and the seco nd and third distal interphalangeal joints. There is moderate osteoarthritis involving the remaining interphalangeal joints. There is partial palmar subluxation of the second proximal phalanx with respe ct to the metacarpal. There is mild dorsal subluxation of the third middle phalanx with respect to th e proximal phalanx. No fracture is identified. The soft tissues are unremarkable. IMPRESSION: 1. Advanced polyarticular osteoarthritis as detailed above. Reviewed, dictated and finalized at location A.
--- NOTE | ~2021-04-12 | XR_ITS ---
EXAMINATION: XR foot RT min 3V DATE: 04/12/2021 14:34 INDICATION: Right foot pain TECHNIQUE: Dorsoplantar, lateral, and 2 oblique views of the right foot were obtained. COMPARISON: None. FINDINGS: There is moderate osteoarthritis of the first and second metatarsophalangeal joints and in the interphalangeal joints of the second toe. Mild osteoarthritis is noted in multiple interphalangea l joints. There is no fracture. The soft tissues are unremarkable. IMPRESSION: 1. Osteoarthritis without acute osseous abnormality. Reviewed, dictated and finalized at location A.
== END 2021-04-12 14:02 | disposition home or self-care (01) ==
LOC: ANHIMG 14:09
PROVIDERS: PCP Family Medicine
DX: M19.071 Primary osteoarthritis, right ankle and foot (principal); M19.041 Primary osteoarthritis, right hand
CPT/HCPCS: 73130; 73630

== ENCOUNTER 2021-10-28 12:02 | Outpatient (CLI) | payer MEDICARE, SELFPAY ==
--- NOTE | ~2021-10-28 | XR_ITS ---
EXAMINATION: XR abdomen obstructive series DATE: 10/28/2021 12:41 INDICATION: Right lower quadrant abdominal pain. Diarrhea. TECHNIQUE: Upright and supine views of the abdomen were obtained. COMPARISON: CT abdomen and pelvis 08/12/2019 FINDINGS: There are no dilated loops of bowel. There is a moderate volume of stool in the colon. No f ree intraperitoneal gas. There is a total right hip arthroplasty. IMPRESSION: 1. Nonobstructive bowel gas pattern. Reviewed, dictated and finalized at location A.
== END 2021-10-28 12:03 | disposition home or self-care (01) ==
PROVIDERS: PCP Family Medicine; Visit Provider Family Medicine
DX: R10.9 Unspecified abdominal pain (principal)
CPT/HCPCS: 74019

== ENCOUNTER 2021-10-31 16:20 | Emergency (ER) | payer MEDICARE, SELFPAY ==
--- NOTE | ~2021-10-31 | XR_ITS ---
EXAM: XR lumbar spine 2-3V HISTORY: NO INJURY,PAIN LOW BACK/RT FLANK PAIN THIS SINCE MORNING COMPARISON: 12/08/2020. FINDINGS: Lumbar scoliosis. 5 nonrib-bearing lumbar-type vertebral bodies. Pedicles intact. Multilev el stable grade 1 listheses. Multilevel severe degenerative disc disease. Vertebral body heights pres erved. Severe multilevel facet arthropathy and interspinous narrowing. Abdominal aortic calcification without evident aneurysm. IMPRESSION: No acute fracture or traumatic malalignment in the lumbar spine. Severe multilevel degenerative lopez es described above. Reviewed, dictated and finalized at location K. IMPRESSION: No acute fracture or traumatic malalignment in the lumbar spine. Severe multile joseph degenerative changes described above.
--- NOTE | ~2021-10-31 | XR_ITS ---
EXAM: XR hip RT 2V w AP pelvis HISTORY: NO INJURY,RT FLANK PAIN SINCE THIS MORNING COMPARISON: 12/06/2020. FINDINGS: Degenerative lumbar changes. Osteopenia. Right hip arthroplasty, in good position, without hardware fracture or perihardware lucency. No osseous fracture or dislocation. Mild degenerative cruz nge in the bilateral SI joints and pubic symphysis. Mild osteoarthritis in the left hip. IMPRESSION: No acute osseous finding in the pelvis or right hip. Uncomplicated right hip arthroplasty. Reviewed, dictated and finalized at location K. IMPRESSION: No acute osseous finding in the pelvis or right hip. Uncomplicated right hip ar throplasty.
--- NOTE | ~2021-10-31 | CT_ITS ---
EXAMINATION: CT abdomen pelvis wo con DATE: 10/31/2021 19:33 INDICATION: rt flank pain TECHNIQUE: Computed tomography (CT) of the abdomen and pelvis was performed without intravenous contr ast. Automated exposure control and iterative reconstruction technique were employed. The dose-length product was 1110.28 mGy-cm. COMPARISON: 08/12/2019. FINDINGS: Lower thorax: Aortic valve and coronary artery calcifications. Stable soft tissue mass versus asymmet rylie glandular tissue in the right breast. Liver: Normal. Biliary/Gallbladder: Gallbladder is normal. No bile duct dilation. Pancreas: No mass or duct dilation. Spleen: Normal. Adrenals:No mass. Kidneys: No mass, stone, or hydronephrosis. GI tract: No small or large bowel dilation. Normal appendix. Diverticuli without diverticulosis. Mesentery/Peritoneum: No ascites, mass, or free air. Retroperitoneum: No mass. Abdominal aortic atherosclerosis and minimal aneurysmal dilation. Pelvis: Considerable artifact from the right hip arthroplasty obscures pelvic anatomy, particularly o n the right side. Surgically absent uterus. Other organs are within normal limits. Soft Tissues: Soft tissues and body wall unremarkable. Bones: No acute osseous finding. IMPRESSION: No acute abdominopelvic process. Reviewed, dictated and finalized at location K.
[2021-10-31 16:27] VITALS: BP 147/72; PULSE 79; RESP 20; TEMP 36.1; O2SAT 96
[2021-10-31 17:03] LABS: Basophils Percent Auto 0.9 % (0.2-1.2); Eosinophils Absolute Auto 0.1 K/mm3 (0-0.3); Eosinophils Percent Auto 2.5 % (0-4.4); Hematocrit 33.7 % (37.0-47.0); Hemoglobin 10.7 g/dL (12.0-15.0); Immature Granulocyte Absolute 0.01 K/mm3 (0.00-0.031); Immature Granulocyte Percent A 0.2 % (0-0.5); Lymphocytes Absolute Auto 1.07 K/mm3 (0.9-3.2); Mean Corpuscular HGB Conc 31.8 g/dl (32-36); Mean Corpuscular Hemoglobin 34.2 pg (26-34); Mean Corpuscular Volume 107.7 fl (80-100); Mean Platelet Volume 9.1 fl (7.4-10.4); Monocytes Absolute Auto 0.5 K/mm3 (0.1-0.6); Monocytes Percent Auto 11.9 % (2.6-8.5); Neutrophils Absolute Auto 2.7 K/mm3 (1.3-6.7); Neutrophils Percent Auto 60.5 % (45.5-73.1); Platelet Count Result 225 k/mm3 (150-375); Red Blood Count 3.13 M/mm3 (4.2-5.4); Red Cell Distribution Width 13.1 % (11.5-14.5); White Blood Count 4.5 K/mm3 (4.5-10.0)
[2021-10-31 17:08] LABS: Appearance Urine Clear (Clear); Bilirubin Urine Negative (Negative); Blood Urine Negative (Negative); Color Urine Yellow (Yellow); Glucose Urine UA Negative (Negative); Ketones Urine Trace mg/dL (Negative); Leukocyte Esterase Ur Negative LEU/UL (Negative); Nitrate Urine Negative (Negative); Protein Urine Negative (Negative); Specific Grav Ur >= 1.030 (1.001-1.035); Urobilinogen Urine 0.2 mg/dL (<2.0); pH Urine 5.5 (5.0-9.0)
[2021-10-31 17:11] LABS: Bacteria Urine Trace /hpf; Mucus Urine Rare /lpf; WBC Urine 0-3 /hpf
[2021-10-31 17:13] LABS: Add Urine Microscopic? YES
[2021-10-31 17:15] LABS: Alanine Aminotransferase 20 U/L (6-35); Albumin Level 3.5 g/dL (3.5-5.1); Alkaline Phosphatase 80 U/L (38-126); Anion Gap 2 mmol/L (8-16); Aspartate Amino Transferase 29 U/L (14-36); Bilirubin,Total 0.3 mg/dL (0.2-1.3); Blood Urea Nitrogen 23 mg/dL (7-17); Calcium 8.3 mg/dL (8.4-10.2); Carbon Dioxide 28 mmol/L (22-30); Chloride 104 mmol/L (98-107); Estimated CRCL calculation 30 ml/min; Estimated Glomerular Filt Rate 43; Glucose 148 mg/dL (65-110); Potassium 4.4 mmol/L (3.4-5.0); Sodium 134 mmol/L (137-145)
--- NOTE | 2021-10-31 17:37 | ED.BACK ---
HPI - Back Pain/Injury General Chief Complaint: Back Pain/Injury Stated Complaint: low back pain, low abd pain Time Seen by Provider: 10/31/21 16:56 History of Present Illness HPI Narrative: 76-year-old female presents the emergency room with a cute onset of right lower back pain. Patient states that she woke up this morning with pain in her right lower back just over her pelvis. Patient states was difficult trying to ambulate, and worse when she moves the leg. Patient denies any saddle anesthesia, or difficulty with her bowel or bladder habits. Patient history of total hip replacement, and similar symptoms several years ago. Patient is not taking any medications to alleviate pain. Related Data Home Medications Medication Instructions Recorded Confirmed Centrum Silver Women 1 tablet PO DAILY 08/13/19 09/09/21 Restasis 1 drp OPHTHALMIC (EYE) Q12H 08/13/19 09/09/21 duloxetine [Cymbalta] 30 mg PO BID 08/13/19 09/09/21 folic acid 1 mg PO DAILY 08/13/19 09/09/21 glucosamine rice 2KCl-chondroit 2 tablet PO BID 08/13/19 09/09/21 [Glucosamine-Chondroitin 3X Str] methotrexate sodium 25 mg PO WEEKLY 08/13/19 09/09/21 meloxicam 15 mg PO DAILY 01/15/21 09/09/21 Allergies Allergy/AdvReac Type Severity Reaction Status Date / Time lidocaine Allergy Severe BECAME Verified 10/31/21 16:32 VERY SHAKEY, WENT TO ER adhesive tape Allergy Intermediate RASH Verified 10/31/21 16:32 amoxicillin AdvReac Unknown unknown Verified 10/31/21 16:32 codeine AdvReac Unknown KEEPS HER Verified 10/31/21 16:32 AWAKE Review of Systems Review of Systems: CONSTITUTIONAL: Denies fever, chills, or sweats. EYES: Denies visual changes, redness, or discharge. ENT: Denies rhinorrhea, congestion, sore throat, or otalgia. CARDIOVASCULAR: Denies chest pain, palpitations, or edema. RESPIRATORY: Denies cough or dyspnea. GASTROINTESTINAL: Denies abdominal pain, nausea, vomiting, or diarrhea. GENITOURINARY: Denies dysuria or hematuria. SKIN: Denies rash or itching. MUSCULOSKELETAL: Reports lower back pain NEUROLOGIC: Denies headache, numbness, dizziness, or weakness. PSYCHIATRIC: Denies anxiety or depression. PMFSH Past Medical History Medical History Anxiety Arthritis Bronchitis Carpal tunnel syndrome Colitis Constipation Cystocele DDD (degenerative disc disease) Depression Diverticulitis Dry eyes GERD (gastroesophageal reflux disease) Hemoptysis HTN (hypertension) IBS (irritable bowel syndrome) Psoriasis (a type of skin inflammation) Rectal polyp Rectocele Volvulus Surgical History Surgical History H/O colonoscopy History of bladder surgery History of carpal tunnel release History of colon resection History of hysterectomy History of right hip replacement Hx of tonsillectomy Social History Social History Smoking status: Never smoker Second hand tobacco smoke exposure: No Alcohol intake: never Substance use: never Substance use type: does not use Gender identity (if verbalized by the patient): Female Spiritual care concerns: No Agree to blood products: No Exam Narrative: GENERAL: Well-appearing, well-nourished, and in no acute distress. HEAD: Normocephalic, atraumatic. EYES: PERRLA and EOMI. CHEST: Clear to auscultation. No respiratory distress. No wheezes rales or rhonchi HEART: Regular rate and rhythm. No murmur heard. Normal peripheral pulses. ABDOMEN: Soft, nontender, nondistended, normal active bowel sounds. EXTREMITIES: Normal range of motion. No edema. BACK: Tenderness over the right SI joint; no midline tenderness, no bony abnormality, active and passive range of motion present SKIN: Warm, dry, no rash. NEURO: No focal deficits. Alert and oriented x3. PSYCH: Normal mood and affect. Course Vital Signs Vital signs: Vital Signs
[2021-10-31] MEDS: KETOROLAC 30 MG/ML VIAL (*BKC) IV PUSH (18:26)
--- NOTE | 2021-10-31 18:50 | PC.NURSE ---
Pt called nurse to room. Pt doesn't believe her problem is muscoskeletal. Refuses muscle relaxer because it's not my SI joint that hurts .
--- NOTE | 2021-10-31 19:23 | PC.NURSE ---
assumed care of pt at this time. Pt in CT.
[2021-10-31 19:53] VITALS: BP 122/66
[2021-10-31] MEDS: methocarbamoL 500 MG TABLET PO (20:18)
[2021-10-31 20:35] VITALS: PULSE 70; RESP 16; O2SAT 97
== END 2021-10-31 20:35 | disposition home or self-care (01) ==
PROVIDERS: Emergency Medicine; Emergency Provider Nurse Practitioner Family; PCP Family Medicine
DX: M46.1 Sacroiliitis, not elsewhere classified (principal); K59.00 Constipation, unspecified; I10 Essential (primary) hypertension; K58.9 Irritable bowel syndrome, unspecified; K21.9 Gastro-esophageal reflux disease without esophagitis; M19.90 Unspecified osteoarthritis, unspecified site; F41.9 Anxiety disorder, unspecified; F32.A Depression, unspecified; Z90.49 Acquired absence of other specified parts of digestive tract; Z87.19 Personal history of other diseases of the digestive system; Z96.641 Presence of right artificial hip joint
CPT/HCPCS: 36415; 51701; 72100; 73502; 74176; 80053; 81001; 85025; 96374; 99284; A9270; J1885

== ENCOUNTER 2022-01-03 14:07 | Outpatient (CLI) | payer MEDICARE, SELFPAY ==
--- NOTE | ~2022-01-03 | MR_ITS ---
EXAMINATION: MR sacroiliac carlos a wo con DATE: 01/03/2022 15:05 INDICATION: Sacroiliitis, not elsewhere classified. TECHNIQUE: Magnetic resonance imaging (MRI) of the sacroiliac joints was performed without intravenou s contrast. COMPARISON: CT abdomen and pelvis 10/31/2021 FINDINGS: There is lumbar dextroscoliosis and severe spondylosis. No fracture. There is moderate oste oarthritis of the sacroiliac joints. There is a total right hip arthroplasty. IMPRESSION: 1. Moderate osteoarthritis of the sacroiliac joints. No evidence of inflammatory arthropathy. Reviewed, dictated and finalized at location A. IMPRESSION: 1. Moderate osteoarthritis of the sacroiliac joints. No evidence of inflammator y arthropathy.
== END 2022-01-03 14:08 | disposition home or self-care (01) ==
PROVIDERS: PCP Family Medicine; Visit Provider Internal Medicine
DX: M46.1 Sacroiliitis, not elsewhere classified (principal); M53.3 Sacrococcygeal disorders, not elsewhere classified
CPT/HCPCS: 72197

== ENCOUNTER 2022-01-17 14:46 | Outpatient (CLI) | payer MEDICARE, SELFPAY ==
--- NOTE | ~2022-01-17 | XR_ITS ---
XR sacrum coccyx min 2V DATE: 01/17/2022 15:27 INDICATION: Fell one week ago. Coccygeal pain. TECHNIQUE: AP, angled AP and lateral views COMPARISON: None FINDINGS: There is severe degenerative disc disease at the mid and lower lumbar spine. Normal alignment at the pubic symphysis and sacroiliac joints. No sacral or coccygeal fracture is det ected. Status post right total hip arthroplasty. IMPRESSION: No sacral or coccygeal fracture is evident Status post right total hip arthroplasty Severe mid and lower lumbar degenerative disc disease Reviewed, dictated and finalized at location D.
== END 2022-01-17 14:47 | disposition home or self-care (01) ==
PROVIDERS: PCP Family Medicine; Visit Provider Family Medicine
DX: M53.3 Sacrococcygeal disorders, not elsewhere classified (principal); M51.36 Other intervertebral disc degeneration, lumbar region
CPT/HCPCS: 72220

== ENCOUNTER 2022-08-08 13:31 | Outpatient (CLI) | payer MEDICARE, SELFPAY ==
[2022-08-08 14:22] LABS: Eosinophils Absolute Auto 0.1 K/mm3 (0-0.3); Eosinophils Percent Auto 3.2 % (0-4.4); Hemoglobin 10.1 g/dL (12.0-15.0); Immature Granulocyte Absolute 0.01 K/mm3 (0.00-0.031); Immature Granulocyte Percent A 0.3 % (0-0.5); Lymphocytes Absolute Auto 1.04 K/mm3 (0.9-3.2); Lymphocytes Percent Auto 33.4 % (18.3-44.2); Mean Corpuscular HGB Conc 31.6 g/dl (32-36); Mean Corpuscular Hemoglobin 33.1 pg (26-34); Mean Corpuscular Volume 104.9 fl (80-100); Mean Platelet Volume 9.4 fl (7.4-10.4); Monocytes Absolute Auto 0.2 K/mm3 (0.1-0.6); Monocytes Percent Auto 7.1 % (2.6-8.5); Neutrophils Absolute Auto 1.7 K/mm3 (1.3-6.7); Platelet Count Result 205 k/mm3 (150-375); Red Blood Count 3.05 M/mm3 (4.2-5.4); White Blood Count 3.1 K/mm3 (4.5-10.0)
== END 2022-08-08 13:32 | disposition home or self-care (01) ==
PROVIDERS: Visit Provider Family Medicine
DX: L40.9 Psoriasis, unspecified (principal); Z79.899 Other long term (current) drug therapy; R79.89 Other specified abnormal findings of blood chemistry
CPT/HCPCS: 36415; 85025

== ENCOUNTER → 2022-09-01 13:08 | Outpatient (CLI) | payer MEDICARE, SELFPAY ==
--- NOTE | ~2022-09-01 | DEXA_ITS ---
Bone Density Report Name: LAURA RUDD Age: 77 Sex: Female Ethnicity: White Date of : 1945 Indication: postmenopausal; screening for osteoporosis; height loss; hysterectomy; Referring Provider: DOMENICA, EL Castañeda Study: Bone densitometry was performed. Exam Date: September 01, 2022 Accession number: [id number] Bone Density: Region BMD T-score Z-score Classification AP Spine (L1-L4) 1.537 4.5 7.1 Normal Femoral Neck (Left) 0.622 -2.0 0.2 Osteopenia Total Hip (Left) 0.740 -1.7 0.4 Osteopenia World Health Organization criteria for BMD impression classify patients as: Normal (T-score at or above -1.0), Osteopenia (T-score between -1.0 and -2.5), or Osteoporosis (T-score at or below -2.5). 10-year Fracture Risk(1): Major Osteoporotic Fracture 16% Hip Fracture 4.5% Reported Risk Factors: [place] (), Neck BMD=0.622, BMI=28.1 (1) FRAX(R) Version 3.08. Fracture probability calculated for an untreated patient. Fracture probability may be lower if the patient has received treatment. Clinical Information Provided by Patient: Has the following medical conditions: Hysterectomy Patient maximum height was 64 Menopause Age: 38 No regular weight bearing exercise Does not regularly consume dairy products Onset of menses at age 10 Number of children 2 Impression: The patient has low bone mass, based on the Left Femoral Neck T-score. The patient has an estimated ten-year risk of hip fracture of 4.5% and an estimated ten-year risk of major fracture of 16%, based on the WHO FRAX algorithm. Discussion: BONE DENSITY IS LOW AT ONE OR MORE SKELETAL SITES. THE PATIENT'S BMD AND CLINICAL RISK FACTORS CONTRIBUTE TO THIS PATIENT'S INCREASED RISK OF FRACTURE. This patient's lowest T-score is low at one or more skeletal sites. It meets the World Health Organization's (WHO) criteria for ?low bone mass? (T-score between -1.0 and -2.5). The patient's 10-year risk of hip fracture as calculated by FRAX exceeds the threshold where pharmacological therapy is recommended by the National Osteoporosis Foundation (NOF). However, all treatment decisions require clinical judgment and consideration of individual patient factors, including patient preferences, comorbidities, previous drug use, risk factors not captured in the FRAX model (e.g., frailty, falls, vitamin D deficiency, increased bone turnover, interval significant decline in bone density) and possible under or overestimation of fracture risk by FRAX. The patient should follow a healthful lifestyle (good nutrition with adequate calcium and vitamin D, and appropriate weight-bearing exercise). Follow-Up: Consider a repeat BMD and Vertebral Fracture Assessment (VFA) exam in 2 years or sooner if medically necessary, to reassess this patient's status. Reported by: MAIN on 09/01/2022 2:48:00 PM.
== END ==
PROVIDERS: PCP Family Medicine; Visit Provider Family Medicine
DX: Z78.0 Asymptomatic menopausal state (principal); N95.9 Unspecified menopausal and perimenopausal disorder; M85.852 Other specified disorders of bone density and structure, left thigh
CPT/HCPCS: 77080

== ENCOUNTER 2022-09-01 15:30 | Outpatient (CLI) | payer MEDICARE, SELFPAY ==
[2022-09-01 16:17] LABS: Basophils Absolute Auto 0.1 K/mm3 (0.0-0.1); Basophils Percent Auto 1.3 % (0.2-1.2); Eosinophils Absolute Auto 0.1 K/mm3 (0-0.3); Eosinophils Percent Auto 1.7 % (0-4.4); Hematocrit 35.7 % (37.0-47.0); Hemoglobin 11.3 g/dL (12.0-15.0); Immature Granulocyte Absolute 0.02 K/mm3 (0.00-0.031); Immature Granulocyte Percent A 0.4 % (0-0.5); Lymphocytes Absolute Auto 1.48 K/mm3 (0.9-3.2); Lymphocytes Percent Auto 28.1 % (18.3-44.2); Mean Corpuscular HGB Conc 31.7 g/dl (32-36); Mean Corpuscular Hemoglobin 33.7 pg (26-34); Mean Corpuscular Volume 106.6 fl (80-100); Mean Platelet Volume 9.2 fl (7.4-10.4); Monocytes Absolute Auto 0.6 K/mm3 (0.1-0.6); Neutrophils Percent Auto 57.5 % (45.5-73.1); Platelet Count Result 231 k/mm3 (150-375); Red Blood Count 3.35 M/mm3 (4.2-5.4); Red Cell Distribution Width 14.6 % (11.5-14.5); White Blood Count 5.3 K/mm3 (4.5-10.0)
[2022-09-01 16:32] LABS: Anisocytosis 1+ (NORMAL); Macrocytosis 1+ (NORMAL); Ovalocytes 1+ (NORMAL); Platelet Estimate Adequate (Adequate); Schistocytes None Seen (NORMAL)
[2022-09-01 16:45] LABS: Erythrocyte Sedimentation Rate 22 mm/hr (0-20)
[2022-09-01 17:25] LABS: Alanine Aminotransferase 23 U/L (6-35); Albumin Level 4.1 g/dL (3.5-5.1); Alkaline Phosphatase 106 U/L (38-126); Anion Gap 6 mmol/L (8-16); Aspartate Amino Transferase 29 U/L (14-36); Bilirubin,Total 0.5 mg/dL (0.2-1.3); Blood Urea Nitrogen 28 mg/dL (7-17); Calcium 8.9 mg/dL (8.4-10.2); Carbon Dioxide 29 mmol/L (22-30); Chloride 105 mmol/L (98-107); Estimated Glomerular Filt Rate 36; Glucose 97 mg/dL (65-110); Potassium 4.8 mmol/L (3.4-5.0); Sodium 140 mmol/L (137-145)
[2022-09-01 17:51] LABS: Iron 112 ug/dL (37-170)
[2022-09-01 18:01] LABS: Percent Iron Saturation 41 % (20-50)
[2022-09-01 18:14] LABS: Vitamin D 25 Hydroxy 58.3 ng/mL
[2022-09-07 15:21] LABS: Red Blood Cell Folate 637 ng/mL RBC (>280)
== END 2022-09-01 15:31 | disposition home or self-care (01) ==
PROVIDERS: PCP Family Medicine; Visit Provider Family Medicine
DX: E55.9 Vitamin D deficiency, unspecified (principal); E53.8 Deficiency of other specified B group vitamins; L40.9 Psoriasis, unspecified; Z79.899 Other long term (current) drug therapy; R53.83 Other fatigue; M89.8X9 Other specified disorders of bone, unspecified site; N95.1 Menopausal and female climacteric states; D50.9 Iron deficiency anemia, unspecified
CPT/HCPCS: 36415; 80048; 80076; 82306; 82607; 82728; 82747; 83540; 83550; 84443; 85025; 85652

== ENCOUNTER 2022-09-21 01:03 | Day surgery (SDC) | payer MEDICARE, SELFPAY ==
--- NOTE | 2022-09-07 13:24 | PC.NURSE ---
Report to the Outpatient Waiting Room, entrance under the green pavilion located off [facility], at time 0600 on date ___09/21/22____. Planned Procedure Time: __0730 . Time changes happen often and if your time is changed the preop area will call you the afternoon before. - You and your visitor will be asked to self-screen and do not enter if you have any COVID symptoms. - Only one visitor is requested with a max of two and NO children visitors are allowed at this time. - The patient visitor may be requested to leave or wait in car when not with patient due to distancing restrictions. - A mask is optional within the hospital at this time. Patients may have clear liquids (water, carbonated beverages, clear teas, apple juice) until 3 hours prior to surgery with a maximum of 20 ounces. - No food from midnight until time of surgery - Infants may have breast milk until 4 hours before surgery, formula 6 hours prior to surgery. - Children will be allowed to drink immediately following surgery. If applicable, please bring a bottle or sippy cup to assist with drinking. Juice, water, soda, and popsicles are readily available. For infants on formula, please bring formula the day of surgery. Pacifiers are allowed. Take the following medications with a SIP of water the morning of surgery: __DULOXETINE AND RESTASIS DO NOT STOP ANY OF YOUR OTHER PRESCRIPTION MEDICATIONS PRIOR TO SURGERY ?EXCEPT THE FOLLOWING Medications to discontinue per physician __MELOXICAM AND METHOTREXATE PER DR HOLLINS. ALL VITAMINS/SUPPLEMENTS 3 DAYS PRE OP . LAST DOSE 09/17/[address] HOLLINS Please no make-up, nail croatian, hairspray, perfume, deodorant, or body powder the day of surgery. No jewelry (including any body piercings) or valuables the day of surgery, leave them at home. Please take a shower or bath the night before, or the morning of, surgery with an antibacterial soap. Wear comfortable, loose fitting clothing. Children are encouraged to wear pajamas. - Jewelry must be removed prior to entering the operating room. Rings and piercings that are not removed may be cut off. - The hospital will not accept responsibility for valuables. - Please leave all valuables, including medications, at home the day of surgery. If you are going home after surgery, a licensed truck driver rubbish collector must drive you home. - NO public transportation without another adult if you receive anesthesia. - We recommend that an adult stay with you for 24 hours following discharge. - We also recommend that you do not drive, make important decision, drink alcoholic beverages, or take any drugs that were not prescribed by your health care provider for at least 24 hours after your discharge time. For Pediatric surgeries, we recommend two adults accompany the child home. Follow any additional instructions given to you from your surgeon. If you or anyone in your household have experienced Covid symptoms in the past week, please notify your surgeon or the nurse liaison at the phone number below for possible testing. Telephone instructions given to ___PATIENT and asked if any additional questions and then verbalized understanding. Patient advised to call surgeon office or pre surgery nurse liaison [phone] if any additional questions.
[2022-09-07 13:31] VITALS: BMI 24.5
[2022-09-21] VITALS (14 sets, daily range): BP systolic 120–147; BP diastolic 62–87; PULSE 62–83; RESP 14–20; TEMP 36.1–37.1; O2SAT 95–100
--- NOTE | 2022-09-21 09:23 | WPDHPUPDATE1 ---
History and Physical Update Update Date/Time: 09/21/22 09:23 History and Physical has been reviewed, including an updated exam of the patient. There are NO changes in the patient's condition. Risks, benefits, and alternatives have been discussed and questions answered. Patient agrees to proceed with procedure.
[2022-09-21] MEDS: LACTATED RINGERS 1,000 ML 30 ML IV CONT (10:19)
[2022-09-21] MEDS: ACETAMINOPHEN 500 MG TABLET 1000 MG PO (10:20)
[2022-09-21] MEDS: fentaNYL CITRATE INJ (*CRX) 100 MCG/2 ML VIAL 25 MCG IV PUSH (10:20)
[2022-09-21] MEDS: KETOROLAC 15 MG/ML VIAL (*BKC) IV PUSH (10:20)
--- NOTE | 2022-09-21 10:59 | WPDANESEPPF ---
Anes - Initial Pre Proc Eval Procedure: Operation Date: 09/21/22 11:00 Proposed Procedures p Excision Internal and External Hemorrhoids Two Complexes, Rubber Band Ligation Internal Hemorrhoids - Keyur Martinez MD Date/Time: 09/21/22 10:59 Surgeon: Keyur Martinez MD Pre Op Diagnosis: Int & Ext Hemorrhoids Prolapsed and Bleeding Patient Data Age: 77 Gender: F Height: 1.63 m Weight: 65.8 kg Last Vital Signs Temp 97.5 F L 09/21/22 09:05 Pulse 83 09/21/22 09:05 Resp 16 09/21/22 09:05 BP 120/87 09/21/22 09:05 Pulse Ox 98 09/21/22 09:05 O2 Del Method Room Air 09/21/22 09:05 Allergies Allergy/AdvReac Type Severity Reaction Status Date / Time lidocaine Allergy Severe BECAME Verified 09/21/22 09:46 VERY SHAKEY, WENT TO ER adhesive tape Allergy Intermediate RASH Verified 09/21/22 09:46 amoxicillin AdvReac Unknown unknown Verified 09/21/22 09:46 codeine AdvReac Unknown KEEPS HER Verified 09/21/22 09:46 AWAKE Home Medications Medication Instructions Recorded Confirmed Type cyclosporine 0.05 % eye drops in a 1 drp ophthalmic (eye) Q12H Dry 08/13/19 09/21/22 History dropperette (Restasis) eyes multivit with 1 tablet PO DAILY 08/13/19 09/21/22 History nxddyhvx-wvlo-HB-lutein 8 mg iron-400 mcg-300 mcg tablet (Centrum Silver Women) acetaminophen 650 mg 650 mg PO Q12H PRN pain #7 tabs 12/08/20 09/21/22 Rx tablet,extended release (Tylenol Arthritis Pain) meloxicam 15 mg tablet 15 mg PO DAILY 01/15/21 09/21/22 History ascorbic acid (vitamin C) 500 mg 500 mg PO DAILY 11/12/21 09/21/22 History capsule folic acid 1 mg tablet 3 mg PO DAILY 03/07/22 09/21/22 History tramadol 50 mg tablet 50 mg PO Q6H PRN Pain 03/07/22 09/21/22 History apremilast 30 mg tablet (Otezla) 30 mg PO BID 09/07/22 09/21/22 History duloxetine 60 mg capsule,delayed 60 mg PO DAILY 09/07/22 09/21/22 History release magnesium 500 mg tablet 15 mg PO HS 09/07/22 09/21/22 History Patient hx anesthesia problems: none Family hx anesthesia problems: none Results Review: All pre-operative results and documents have been reviewed as part of the pre-operative evaluation. COUNTS INCLUDE 234 BEDS AT THE [facility] Past Medical History Medical History DEZ positive Anxiety Arthritis Bilateral sacroiliitis Bronchitis Carpal tunnel syndrome Colitis Constipation Cystocele DDD (degenerative disc disease) Depression Diverticulitis Dry eyes GERD (gastroesophageal reflux disease) Hemoptysis HTN (hypertension) IBS (irritable bowel syndrome) Psoriasis (a type of skin inflammation) Rectal polyp Rectocele Volvulus Surgical History Surgical History H/O colonoscopy History of bladder surgery History of carpal tunnel release History of colon resection History of hysterectomy History of right hip replacement Hx of tonsillectomy Social History Social History Smoking status: Never smoker Second hand tobacco smoke exposure: No Alcohol intake: never Substance use: never Substance use type: does not use Living arrangements: alone Gender identity (if verbalized by the patient): Female Spiritual care concerns: No Agree to blood products: No Anes - Eval Final PreProcedure Day of Procedure 09/21/22 10:59 Patient weight: normal Heart: regular rate and rhythm Lungs: clear to auscultation Airway: Mallampati scale class II Neurological: alert and oriented Last oral intake: >/= 8 hours ASA classification: III Emergent: no Anesthetic plan: proceed Anesthesia type and monitoring: general ETT and standard monitoring Results Review: All pre-operative results and documents have been reviewed as part of the pre-operative evaluation. Informed Consent: The patient's anesthetic plan and its attendant risks and benefits were discussed
[2022-09-21] MEDS: ceFAZolin 2 GM/D5W 50 ML 2 GM/50 ML BAG IVPB (11:15)
--- NOTE | 2022-09-21 11:16 | PHAR ---
CALLED OR, BUPIVACAINE ORDERED W/ LIDOCAINE ALLERGY. SURGERY NURSE FREQUENCY CHECKER WILL CALL BACK TO ROOM 5 WHERE PROCEDURE IS SCHEDULED TO CHECK ON BUPIVACAINE ORDER/USE.
[2022-09-21] MEDS: BUPivacaine HCL 0.5% PF 30 ML VIAL 20 ML INFILTRATE (11:45)
--- NOTE | 2022-09-21 12:27 | W.PM.PROC2 ---
Procedure Note - Detailed Date of Procedure 09/21/22 Pre-op Diagnosis Int & Ext Hemorrhoids Prolapsed and Bleeding Post-op Diagnosis Same Procedure Performed Excision right anterior complex internal and external hemorrhoids, excision left posterior complex internal and external hemorrhoids. Surgeon Keyur Martinez MD Senior Network Security Engineer Jake THURMAN Anesthesia General and Local (0.5% Marcaine with Exparel) Indications Patient has had problems with bleeding and prolapse of internal hemorrhoids associated with large external hemorrhoids. She was seen in the office and has prolapsed internal hemorrhoids with the external hemorrhoids. She is taken to surgery now for excision Findings Anteriorly, there was a large complex of internal and external hemorrhoids on the right side. The left posterior area also had internal and external hemorrhoids with a large external hemorrhoidal complex as well. No other anorectal findings were noted. Description of Procedure Patient was taken to surgery and induced into general anesthesia. She was placed in the prone tracee-knife position. The buttocks were taped apart. Prep and drape was carried out. I reviewed the anal canal with a small Hill-Lizarraga anoscope. Findings were as above. I then infiltrated local anesthesia. 20 cc deep subdermal and 20 cc intra sphincteric were infiltrated. I then attended the right anterior complex 1st. This was the larger of the 2. I excised the entire complex of internal and external hemorrhoids. I then placed subcuticular interrupted 4-0 Vicryl sutures to close the mucosa and perianal skin. This worked well with no evidence of bleeding. I then turned my attention to the left posterior complex. In similar fashion, the internal and external hemorrhoids were excised. The mucosa and perianal skin were again closed with subcuticular interrupted 4-0 Vicryl suture. I again reviewed the anal canal. There was no additional internal hemorrhoids of consequence. There was no bleeding from either suture line. The anus was dressed with Xeroform gauze fluffs and Medipore tape. The patient was returned to a supine position, awakened and taken to recovery in good condition. Sponge and needle counts were correct x2. Estimated Blood Loss -10 Drains No Packing No Pathology Yes (Right anterior complex internal and external hemorrhoids, left posterior complex internal and external hemorrhoids) Complications No immediate complications Condition Stable Disposition PACU [facility] Billing Surgery - Charge Forward: Surgery Billing (Excision 2 complexes internal and external hemorrhoids-complex excision)
--- NOTE | 2022-09-21 14:16 | PC.NURSE ---
This patient, Alissa Hutchinson, was admitted to 2 Medical Room 261-01. Patient oriented to hospital policies and general routines including ID bracelet, bed and alarms, visiting hours, pain management, procedures, bathroom and other care routines, personal items, smoking policy, room service/diet, and visiting hours. Information on how to activate the Rapid Response Team has been discussed. Patient/Family are encouraged to report perceived risks to care and to ask questions if they do not understand what they are told or what they should do.
[2022-09-21] MEDS: cycloSPORINE 0.4 ML OPHTH SOLUTION 1 DROP EACH EYE (17:26)
[2022-09-21] MEDS: MINERAL OIL 30 ML UDC 15 ML PO (17:26)
[2022-09-21] MEDS: PSYLLIUM POWDER PACKET 1 PACKET PO (17:27)
[2022-09-21] MEDS: ENOXAPARIN 30 MG/0.3 ML SYRINGE SUB-Q (20:39)
[2022-09-21] MEDS: traMADol HCL (*CRX) 50 MG TABLET PO (20:43)
[2022-09-22 03:40] VITALS: BP 113/58; PULSE 72; RESP 17; TEMP 36.5; O2SAT 98
[2022-09-22 05:40] LABS: Hematocrit 33.5 % (37.0-47.0); Hemoglobin 10.8 g/dL (12.0-15.0); Mean Corpuscular HGB Conc 32.2 g/dl (32-36); Mean Corpuscular Hemoglobin 34.3 pg (26-34); Mean Corpuscular Volume 106.3 fl (80-100); Mean Platelet Volume 8.9 fl (7.4-10.4); Platelet Count Result 193 k/mm3 (150-375); Red Blood Count 3.15 M/mm3 (4.2-5.4); Red Cell Distribution Width 13.6 % (11.5-14.5); White Blood Count 7.9 K/mm3 (4.5-10.0)
[2022-09-22 05:54] LABS: Anion Gap 4 mmol/L (8-16); Blood Urea Nitrogen 19 mg/dL (7-17); Calcium 8.6 mg/dL (8.4-10.2); Carbon Dioxide 29 mmol/L (22-30); Chloride 103 mmol/L (98-107); Estimated CRCL calculation 29 ml/min; Estimated Glomerular Filt Rate 43; Glucose 92 mg/dL (65-110); Potassium 4.2 mmol/L (3.4-5.0); Sodium 136 mmol/L (137-145)
[2022-09-22] MEDS: oxyCODONE/ACETAMINOPHEN (*CRX) 5-325 MG TABLET 1 TABLET PO (06:01)
[2022-09-22 07:45] VITALS: BP 128/77; PULSE 79; RESP 16; TEMP 37.2; O2SAT 95
[2022-09-22] MEDS: ENOXAPARIN 30 MG/0.3 ML SYRINGE SUB-Q (09:06)
[2022-09-22] MEDS: DULoxetine HCL 60 MG CAPSULE.DR PO (09:07)
--- NOTE | 2022-09-22 09:36 | WPDANESPN ---
Anes - Prog Note Post-Op Date/Time: 09/22/22 09:36 Cardiovascular status: normal Respiratory status: normal Airway patency: baseline Mental status: baseline Post-Op hydration status: normal Vital Signs: Last Vital Signs Temp 37.2 C 09/22/22 07:45 Pulse 79 09/22/22 07:45 Resp 16 09/22/22 07:45 BP 128/77 09/22/22 07:45 Pulse Ox 95 09/22/22 07:45 O2 Del Method Room Air 09/21/22 20:00 Pain Score (VAS): Patient asleep, no nonverbal signs of pain present at this time I/O: Intake & Output 09/21/22 09/22/22 09/22/22 23:59 07:59 15:59 Intake Total 240 150 Balance 240 150 Laboratory Tests 09/22/22 05:28 09/22/22 05:28 09/22/22 09/22/22 05:28 05:28 WBC 7.9 RBC 3.15 L Hgb 10.8 L Hct 33.5 L MCV 106.3 H MCH 34.3 H MCHC 32.2 RDW 13.6 Plt Count 193 MPV 8.9 Sodium 136 L Potassium 4.2 Chloride 103 Carbon Dioxide 29 Anion Gap 4 L BUN 19 H Creatinine 1.20 H Estim Creat Clear Calc 29 Estimated GFR 43 L Glucose 92 Calcium 8.6 Post-procedural complaints: none Patient Feedback: Patient satisfied with anesthetic care.
[2022-09-22 09:45] VITALS: PULSE 79; RESP 16; O2SAT 95
--- NOTE | 2022-09-22 10:33 | PM.DS ---
DS: Admitting Diagnosis Discharge Date 09/22/22 Admitting Diagnosis Internal and External hemorrhoids prolapsed and bleeding HTN Chronic constipation Osteoarthritis DS: Discharge Diagnosis Discharge Diagnosis (1) Internal and external bleeding hemorrhoids: Code(s): K64.4 - Residual hemorrhoidal skin tags; K64.8 - Other hemorrhoids Status: Acute (2) Chronic constipation: Code(s): K59.09 - Other constipation Status: Acute (3) HTN (hypertension): Qualifiers: Hypertension type: primary hypertension Qualified Code(s): I10 - Essential (primary) hypertension Code(s): I10 - Essential (primary) hypertension Status: Acute (4) Osteoarthritis: Qualifiers: Osteoarthritis location: unspecified site Osteoarthritis type: unspecified Qualified Code(s): M19.90 - Unspecified osteoarthritis, unspecified site Code(s): M19.90 - Unspecified osteoarthritis, unspecified site Status: Acute DS: Summary Hospital Course Reason for hospitalization: Patient has had problems with bleeding and prolapse of internal hemorrhoids associated with large external hemorrhoids.? She was seen in the office and has prolapsed internal hemorrhoids with the external hemorrhoids.? She had discussions regarding treatment options and the decision was made to proceed with surgery. Hospital Course: She presented on 09/21/22 and underwent excision right anterior complex internal and external hemorrhoids, excision left posterior complex internal and external hemorrhoids by Dr. Martinez. She was admitted to the medical floor and monitored overnight. Pain has been well-controlled with oral analgesics. Her diet was slowly advanced to a regular diet, which she is tolerating today. She was started on mineral oil and Metamucil post-operatively. We will plan to continue this for a few weeks after surgery. She has also been getting Sitz baths starting the morning after surgery. She is tolerating activity and stable for discharge today. Status at Discharge Functional status at discharge: independent ambulation Overall status at discharge: patient is progressing back to baseline Time Spent with Patient Time attestation: Total time spent providing and/or coordinating discharge services: Exam Const: General: comfortable and no acute distress Nutritional Appearance: average body habitus Orientation/consciousness: patient oriented x3 Extrem: General: no calf tenderness and no edema Psych: Mental Status: mental status grossly normal Insight: Good insight present (Psych) Judgement: Good judgement present (Psych) DS: Data Data Completed and Pending Pending studies at discharge: Pending at discharge 09/21/22 11:49 Surgical [PTH] Routine Surgical [PTH] Routine Labs on day of discharge: Labs from last 24 hours 09/22/22 09/22/22 05:28 05:28 WBC 7.9 RBC 3.15 L Hgb 10.8 L Hct 33.5 L MCV 106.3 H MCH 34.3 H MCHC 32.2 RDW 13.6 Plt Count 193 MPV 8.9 Sodium 136 L Potassium 4.2 Chloride 103 Carbon Dioxide 29 Anion Gap 4 L BUN 19 H Creatinine 1.20 H Estim Creat Clear Calc 29 Estimated GFR 43 L Glucose 92 Calcium 8.6 Procedures/Treatments: Procedures Operation Date: 09/21/22 11:00 Actual Procedure Side Surgeon p Excision Internal and External Hemorrhoids Two Complexes Keyur Martinez MD Discharge Plan Discharge Patient Disposition: Home, Self-Care Discharge Instructions: General Surgery Instructions: Continue Sitz baths twice daily and as needed after bowel movements Continue the Metamucil and Mineral Oil at least for the next two weeks until your surgeon tells you to stop taking these medications when you see him in follow-up. Both medications can be picked up [id number]. Take the Metamucil twice daily and the mineral oil twice daily. Pain medication (oxycodone/acetaminophen) has been sent to the pharmacy [facility]
[2022-09-22 11:47] VITALS: BP 127/74; PULSE 82; RESP 16; TEMP 36.9; O2SAT 96
--- NOTE | 2022-09-22 13:04 | PC.NURSE ---
On 09/22/22, the student, [Irineo Mcconnell], provided care and completed [facility] documentation on this patient. I have reviewed the student's documentation and agree with the findings.
--- NOTE | 2022-09-22 14:21 | PC.NURSE ---
On 09/22/22, the student, [Magnolia Chahal], provided care and completed [facility] documentation on this patient. I have reviewed the student's documentation and agree with the findings.
== END 2022-09-22 13:35 | disposition home or self-care (01) ==
LOC: ANHSURGERY 09:32 → ANH2MED 14:10
PROVIDERS: PCP Family Medicine; Visit Provider Surgery
PROC: (CPT 46260; principal; 2022-09-21 11:00)
DX: K64.8 Other hemorrhoids (principal); K64.4 Residual hemorrhoidal skin tags; I10 Essential (primary) hypertension; M19.90 Unspecified osteoarthritis, unspecified site; L40.9 Psoriasis, unspecified; F41.9 Anxiety disorder, unspecified; F32.A Depression, unspecified; H04.129 Dry eye syndrome of unspecified lacrimal gland
CPT/HCPCS: 46260; 36415; 80048; 85027; 88304; A9270; C9290; J0690; J1650; J1885; J2405; J2704; J3010; J7120

== ENCOUNTER 2023-09-27 12:57 | Outpatient (CLI) | payer MEDICARE, SELFPAY ==
--- NOTE | ~2023-09-27 | CT_ITS ---
EXAMINATION: CT LE LT wo con DATE: 09/27/2023 13:32 INDICATION: Left knee osteoarthritis. Preoperative planning. TECHNIQUE: Computed tomography (CT) of the left lower limb was performed without intravenous contrast . Automated exposure control and iterative reconstruction technique were employed. The dose-length pr oduct was 2373.50 mGy-cm. COMPARISON: Left knee radiographs 09/13/2023 FINDINGS: There is no fracture. There is moderate left hip osteoarthritis. Left knee demonstrates hannah us angulation. There is severe tricompartmental osteoarthritis of the knee. There is a small knee caroline nt effusion with loose bodies. There is a small Santiago's cyst with a loose body. IMPRESSION: 1. Severe left knee osteoarthritis. 2. Small left knee joint effusion with loose bodies. 3. Small left Santiago's cyst with loose body. 4. Moderate left hip osteoarthritis. Reviewed, dictated and finalized at location A.
--- NOTE | 2023-09-27 14:12 | ECG_ITS ---
Measurements Intervals [place] Rate: 68 P: 20 WA: 158 QRS: -17 QRSD: 89 T: 41 QT: 382 QTc: 400 Interpretive Statements SINUS RHYTHM POSSIBLE RIGHT VENTRICULAR CONDUCTION DELAY [RSR (QR) IN V1/V2] BORDERLINE ECG SEE SCANNED COPY FOR SIGNATURE MTDD
[2023-09-27 15:16] LABS: Albumin Level 4.6 g/dL (3.5-5.1); Estimated Glomerular Filt Rate 36; Glucose 89 mg/dL (65-110)
[2023-09-27 16:07] LABS: Hemoglobin 12.6 g/dL (12.0-15.0)
== END 2023-09-27 12:58 | disposition home or self-care (01) ==
PROVIDERS: PCP Family Medicine; Visit Provider Orthopaedic Surgery
DX: M17.12 Unilateral primary osteoarthritis, left knee (principal); R79.89 Other specified abnormal findings of blood chemistry; I10 Essential (primary) hypertension; M16.12 Unilateral primary osteoarthritis, left hip; M71.22 Synovial cyst of popliteal space [Baker], left knee
CPT/HCPCS: 36415; 73700; 82040; 82565; 82947; 85014; 85018; 93005

== ENCOUNTER 2023-10-17 17:51 | Emergency (ER) | payer MEDICARE, SELFPAY ==
[2023-10-17 17:54] VITALS: BP 127/77; PULSE 87; RESP 17; TEMP 36.4; O2SAT 97
--- NOTE | 2023-10-17 18:52 | ED.GENADULT ---
HPI - General Adult General Chief complaint: Ear <Trice Patel October, BLOOD BANK TECHNOLOGIST - Last Filed: 10/17/23 19:11> Stated complaint: R EAR FOREIGN BODY? <Trice Patel October, BLOOD BANK TECHNOLOGIST - Last Filed: 10/17/23 19:11> Time Seen by Provider: 10/17/23 19:08 <Trice Patel October, BLOOD BANK TECHNOLOGIST - Last Filed: 10/17/23 19:11> Focused HPI: Normal Evangelina is an 78 y/o female who presents with reports of having piece of her hearing aid stuck inside of her right ear for about 3 days now. She is starting to have pain to her right ear. Attempted three times to get the white device out and unable to she was not tolerating it well- would benefit from suctioning it out or flushing tried the alligators but unsuccessful GENERAL: Well-appearing, well-nourished, and in no acute distress. HEAD: Normocephalic, atraumatic. CHEST: Clear to auscultation. ?No respiratory distress. HEART: Regular rate and rhythm.? NEURO: ?Alert and oriented x3. Patient screened in triage and initial orders placed.? ?Additional care and disposition to be based upon?diagnostic testing and treatment. <Trice Patel October, - Last Filed: 10/17/23 19:11> Related Data Home medications: Home Medications Medication Instructions Recorded Confirmed cyclosporine 0.05 % eye drops in a 1 drp ophthalmic (eye) Q12H Dry 08/13/19 09/13/23 dropperette (Restasis) eyes aqxsdcye-yokz-hcaf 8 mg-folic 400 1 tablet PO DAILY 08/13/19 09/13/23 mcg-K 50 mcg-lutein 300 mcg tablet (Centrum Silver Women) meloxicam 15 mg tablet 15 mg PO DAILY 01/15/21 09/13/23 apremilast 30 mg tablet (Otezla) 30 mg PO BID 09/07/22 09/13/23 duloxetine 60 mg capsule,delayed 60 mg PO DAILY 09/07/22 09/13/23 release ascorbic acid (vitamin C) 500 mg 500 mg PO DAILY 10/03/22 09/13/23 tablet <Trice Patel October, BLOOD BANK TECHNOLOGIST - Last Filed: 10/17/23 19:11> Allergies/adverse reactions: Allergies Allergy/AdvReac Type Severity Reaction Status Date / Time lidocaine Allergy Severe BECAME Verified 10/17/23 20:59 VERY SHAKEY, WENT TO ER adhesive tape Allergy Intermediate RASH Verified 10/17/23 20:59 amoxicillin AdvReac Unknown unknown Verified 10/17/23 20:59 codeine AdvReac Unknown KEEPS HER Verified 10/17/23 20:59 AWAKE <Trice Malagon BLOOD BANK TECHNOLOGIST - Last Filed: 10/17/23 19:11> Review of Systems Review of Systems: CONSTITUTIONAL: Denies fever, chills, or sweats. EYES: Denies visual changes, redness, or discharge. ENT: See HPI CARDIOVASCULAR: Denies chest pain, palpitations, or edema. RESPIRATORY: Denies cough or dyspnea. GASTROINTESTINAL: Denies abdominal pain, nausea, vomiting, or diarrhea. GENITOURINARY: Denies dysuria or hematuria. SKIN: Denies rash or itching. MUSCULOSKELETAL: Denies back pain, joint pain, or myalgia. NEUROLOGIC: Denies headache, numbness, or weakness. PSYCHIATRIC: Denies anxiety or depression. <Ellyn Hart PA-C - Last Filed: 10/18/23 02:31> [facility] Past Medical History Medical History: Medical History DEZ positive Anxiety Arthritis Bilateral sacroiliitis Bronchitis Carpal tunnel syndrome Colitis Constipation Cystocele DDD (degenerative disc disease) Depression Diverticulitis Dry eyes GERD (gastroesophageal reflux disease) Hemoptysis HTN (hypertension) IBS (irritable bowel syndrome) Psoriasis (a type of skin inflammation) Rectal polyp Rectocele Volvulus <Trice Malagon, BLOOD BANK TECHNOLOGIST - Last Filed: 10/17/23 19:11> Surgical History Surgical History: Surgical History H/O colonoscopy History of bladder surgery History of carpal tunnel release History of colon resection History of hemorrhoidectomy 09/21/2022 - Excision right anterior complex internal and external hemorrhoids, excision left posterior complex internal and external History of hysterectomy History of right hip replacement Hx of tonsillectomy <Trice Malagon BLOOD BANK TECHNOLOGIST - Last Filed: 10/17/23 19:11>
--- NOTE | 2023-10-17 20:21 | PC.NURSE ---
pt called x1 at triage.
== END 2023-10-17 22:25 | disposition home or self-care (01) ==
PROVIDERS: Emergency Provider Physician Assistant; PCP Family Medicine
DX: T16.1XXA Foreign body in right ear, initial encounter (principal); I10 Essential (primary) hypertension; K21.9 Gastro-esophageal reflux disease without esophagitis; K58.9 Irritable bowel syndrome, unspecified; L40.9 Psoriasis, unspecified; Z96.641 Presence of right artificial hip joint; Z87.19 Personal history of other diseases of the digestive system; Z90.49 Acquired absence of other specified parts of digestive tract; Z90.710 Acquired absence of both cervix and uterus; W44.G1XA Audio device entering into or through a natural orifice, initial encounter
CPT/HCPCS: 69200; 99283

== ENCOUNTER 2023-11-14 13:42 | Outpatient (CLI) | payer MEDICARE, SELFPAY ==
[2023-11-14 14:40] LABS: Basophils Absolute Auto 0.1 K/mm3 (0.0-0.1); Basophils Percent Auto 1.1 % (0.2-1.2); Eosinophils Absolute Auto 0.1 K/mm3 (0-0.3); Eosinophils Percent Auto 1.7 % (0-4.4); Hematocrit 35.8 % (37.0-47.0); Hemoglobin 11.6 g/dL (12.0-15.0); Lymphocytes Percent Auto 33.9 % (18.3-44.2); Mean Corpuscular HGB Conc 32.4 g/dl (32-36); Mean Corpuscular Hemoglobin 33.3 pg (26-34); Mean Corpuscular Volume 102.9 fl (80-100); Mean Platelet Volume 9.2 fl (7.4-10.4); Monocytes Absolute Auto 0.4 K/mm3 (0.1-0.6); Monocytes Percent Auto 7.4 % (2.6-8.5); Neutrophils Absolute Auto 2.6 K/mm3 (1.3-6.7); Neutrophils Percent Auto 55.9 % (45.5-73.1); Platelet Count Result 210 k/mm3 (150-375); Red Blood Count 3.48 M/mm3 (4.2-5.4); Red Cell Distribution Width 12.7 % (11.5-14.5); White Blood Count 4.7 K/mm3 (4.5-10.0)
[2023-11-14 15:02] LABS: Creatinine Urine 164.8 mg/dL; Total Protein Urine Random 10 mg/dL; Ur Ttl Prot Creatinine Ratio 0.06 mg/mg (0-0.20)
[2023-11-14 15:25] LABS: Vitamin D 25 Hydroxy 54.3 ng/mL
[2023-11-14 16:26] LABS: Alanine Aminotransferase 43 U/L (6-35); Alkaline Phosphatase 141 U/L (38-126); Anion Gap 4 mmol/L (4-12); Aspartate Amino Transferase 53 U/L (14-36); Bilirubin,Total 0.6 mg/dL (0.2-1.3); Blood Urea Nitrogen 31 mg/dL (7-17); Calcium 9.1 mg/dL (8.4-10.2); Carbon Dioxide 27 mmol/L (22-30); Chloride 107 mmol/L (98-107); Cholesterol 184 mg/dL (0-200); Estimated Glomerular Filt Rate 33; Glucose 131 mg/dL (65-110); HDL Direct 70 mg/dL; Potassium 3.9 mmol/L (3.4-5.0); Sodium 138 mmol/L (137-145); Triglycerides 91 mg/dL (<150)
[2023-11-14 16:36] LABS: LDL Cholesterol Direct 85 mg/dL
[2023-11-17 11:13] LABS: Cyclosporine <25 mcg/L (100-300)
== END 2023-11-14 13:43 | disposition home or self-care (01) ==
PROVIDERS: PCP Family Medicine; Visit Provider Internal Medicine Nephrology
DX: R73.9 Hyperglycemia, unspecified (principal); N18.32 Chronic kidney disease, stage 3b; L40.50 Arthropathic psoriasis, unspecified; E53.8 Deficiency of other specified B group vitamins; D50.8 Other iron deficiency anemias; E55.9 Vitamin D deficiency, unspecified; F32.A Depression, unspecified; M17.9 Osteoarthritis of knee, unspecified; Z96.641 Presence of right artificial hip joint
CPT/HCPCS: 36415; 80053; 80061; 80158; 82306; 82570; 84156; 85025

== ENCOUNTER 2023-11-23 11:56 | Outpatient (CLI) | payer MEDICARE, SELFPAY ==
--- NOTE | ~2023-11-23 | XR_ITS ---
XR chest 2V 11/23/2023 12:58 Indication: Chronic kidney disease. Hypertension. Procedure: 2 view chest Comparison: No prior studies for comparison. Findings: Elevation of the right diaphragm. Heart size normal. No focal air space disease, pulmonary edema, pleural effusion or suspected pneumothorax. Impression: 1: No acute cardiopulmonary disease. Reviewed, dictated and finalized at location B. Impression: 1: No acute cardiopulmonary disease.
[2023-11-23 13:39] LABS: Albumin Level 4.3 g/dL (3.5-5.1); Anion Gap 4 mmol/L (4-12); Blood Urea Nitrogen 21 mg/dL (7-17); Calcium 9.6 mg/dL (8.4-10.2); Carbon Dioxide 31 mmol/L (22-30); Chloride 107 mmol/L (98-107); Estimated Glomerular Filt Rate 36; Glucose 99 mg/dL (65-110); Phosphorus 3.3 mg/dL (2.5-4.5); Potassium 3.9 mmol/L (3.4-5.0); Sodium 142 mmol/L (137-145)
== END 2023-11-23 11:57 | disposition home or self-care (01) ==
PROVIDERS: PCP Family Medicine; Visit Provider Internal Medicine Nephrology
DX: I12.9 Hypertensive chronic kidney disease with stage 1 through stage 4 chronic kidney disease, or unspecified chronic kidney disease (principal); N18.32 Chronic kidney disease, stage 3b; L40.50 Arthropathic psoriasis, unspecified; E53.8 Deficiency of other specified B group vitamins; D50.8 Other iron deficiency anemias; E55.9 Vitamin D deficiency, unspecified; F32.A Depression, unspecified; Z96.641 Presence of right artificial hip joint; M17.9 Osteoarthritis of knee, unspecified; H91.93 Unspecified hearing loss, bilateral
CPT/HCPCS: 36415; 71046; 80069

== ENCOUNTER 2023-11-27 15:11 | Outpatient (CLI) | payer MEDICARE, SELFPAY ==
--- NOTE | ~2023-11-27 | US_ITS ---
Renal-Bladder ultrasound Clinical History: Chronic kidney disease Technique: Real-time sonographic imaging of the kidneys and urinary bladder was performed. Findings: The right kidney measures 7.3 cm in length and the left kidney measures 7.9 cm. There is no hydronephrosis or renal calculus identified. Renal cortical echogenicity is within normal limits. No renal mass lesion is identified. The urinary bladder is moderately distended at the time of this exam. No intraluminal echoes are iden tified. No abnormal wall thickening is seen. Impression: Unremarkable ultrasound of the kidneys and urinary bladder. Reviewed, dictated and finalized at location M. Impression: Unremarkable ultrasound of the kidneys and urinary bladder.
[2023-11-27 17:16] LABS: Appearance Urine Clear (Clear); Bilirubin Urine Negative (Negative); Blood Urine Negative (Negative); Color Urine Yellow (Yellow); Glucose Urine UA Negative (Negative); Ketones Urine Negative (Negative); Leukocyte Esterase Ur Negative LEU/UL (Negative); Nitrate Urine Negative (Negative); Protein Urine Negative (Negative); Specific Grav Ur 1.008 (1.001-1.035); Urobilinogen Urine 0.2 mg/dL (<2.0)
[2023-11-27 17:29] LABS: Basophils Absolute Auto 0.1 K/mm3 (0.0-0.1); Basophils Percent Auto 1.1 % (0.2-1.2); Eosinophils Absolute Auto 0.1 K/mm3 (0-0.3); Eosinophils Percent Auto 1.6 % (0-4.4); Hematocrit 37.2 % (37.0-47.0); Immature Granulocyte Absolute 0.01 K/mm3 (0.00-0.031); Immature Granulocyte Percent A 0.2 % (0-0.5); Lymphocytes Absolute Auto 1.88 K/mm3 (0.9-3.2); Mean Corpuscular HGB Conc 32.3 g/dl (32-36); Mean Corpuscular Hemoglobin 32.7 pg (26-34); Mean Corpuscular Volume 101.4 fl (80-100); Mean Platelet Volume 9.3 fl (7.4-10.4); Monocytes Absolute Auto 0.6 K/mm3 (0.1-0.6); Monocytes Percent Auto 10.7 % (2.6-8.5); Neutrophils Absolute Auto 2.9 K/mm3 (1.3-6.7); Neutrophils Percent Auto 52.4 % (45.5-73.1); Platelet Count Result 230 k/mm3 (150-375); Red Blood Count 3.67 M/mm3 (4.2-5.4); Red Cell Distribution Width 12.7 % (11.5-14.5); White Blood Count 5.5 K/mm3 (4.5-10.0)
[2023-11-27 17:33] LABS: Add Urine Microscopic? NO
[2023-11-27 17:42] LABS: Creatinine Urine 56.8 mg/dL; Total Protein Urine Random 10 mg/dL; Ur Ttl Prot Creatinine Ratio 0.18 mg/mg (0-0.20)
[2023-11-27 17:43] LABS: Alanine Aminotransferase 37 U/L (6-35); Albumin Level 4.4 g/dL (3.5-5.1); Alkaline Phosphatase 160 U/L (38-126); Anion Gap 6 mmol/L (4-12); Aspartate Amino Transferase 47 U/L (14-36); Bilirubin,Total 0.7 mg/dL (0.2-1.3); Blood Urea Nitrogen 27 mg/dL (7-17); Calcium 9.4 mg/dL (8.4-10.2); Carbon Dioxide 27 mmol/L (22-30); Chloride 102 mmol/L (98-107); Cholesterol 182 mg/dL (0-200); Estimated Glomerular Filt Rate 36; Glucose 85 mg/dL (65-110); HDL Direct 75 mg/dL; Phosphorus 3.9 mg/dL (2.5-4.5); Potassium 3.9 mmol/L (3.4-5.0); Sodium 135 mmol/L (137-145); Triglycerides 126 mg/dL (<150)
[2023-11-27 17:54] LABS: LDL Cholesterol Direct 81 mg/dL
[2023-11-27 18:07] LABS: Parathyroid Intact 45.8 pg/mL (7.5-53.5)
[2023-11-27 18:12] LABS: Vitamin D 25 Hydroxy 55.4 ng/mL
== END 2023-11-27 15:12 | disposition home or self-care (01) ==
PROVIDERS: PCP Family Medicine; Visit Provider Internal Medicine Nephrology
DX: I12.9 Hypertensive chronic kidney disease with stage 1 through stage 4 chronic kidney disease, or unspecified chronic kidney disease (principal); N18.32 Chronic kidney disease, stage 3b; E53.8 Deficiency of other specified B group vitamins; D50.8 Other iron deficiency anemias; E55.9 Vitamin D deficiency, unspecified; H91.93 Unspecified hearing loss, bilateral; Z96.641 Presence of right artificial hip joint; M17.9 Osteoarthritis of knee, unspecified; L40.50 Arthropathic psoriasis, unspecified; F32.A Depression, unspecified
CPT/HCPCS: 36415; 76775; 80053; 80061; 80069; 81003; 82306; 82570; 83970; 84156; 85025

== ENCOUNTER 2023-12-25 15:16 | Emergency (ER) | payer MEDICARE, SELFPAY ==
--- NOTE | ~2023-12-25 | CT_ITS ---
EXAMINATION: CT lumbar spine wo con DATE: 12/25/2023 18:44 INDICATION: Low back pain. TECHNIQUE: Computed tomography (CT) of the lumbar spine was performed without intravenous contrast. A utomated exposure control and iterative reconstruction technique were employed. The dose-length produ ct was 939.28 mGy-cm. COMPARISON: None FINDINGS: There is 24 degrees levoscoliosis of thoracolumbar spine. There is 3 mm retrolisthesis of L 1 and L2, 4 mm anterolisthesis of L4 on L5, and 3 mm retrolisthesis of L5 on S1. There is interbody f usion at L5-S1. There is severely decreased disc height from T10-T11 through L4-L5. The following dis c levels are specifically discussed: L1-L2: The disc is bulging. There is severe bilateral facet joint osteoarthritis. There is moderate b ilateral neural foraminal stenosis. There is mild central canal stenosis. L2-L3: The disc is bulging. There is severe bilateral facet joint osteoarthritis. There is mild right and moderate left neural foraminal stenosis. There is mild central canal stenosis. L3-L4: The disc is bulging. There is severe bilateral facet joint osteoarthritis. There is mild right and moderate left neural foraminal stenosis. There is moderate central canal stenosis. L4-L5: The disc is bulging. There is severe bilateral facet joint osteoarthritis. There is moderate b ilateral neural foraminal stenosis. There is moderate central canal stenosis. L5-S1: There is severe bilateral facet joint osteoarthritis. There is moderate right and mild left ne ural foraminal stenosis. There is mild central canal stenosis. IMPRESSION: 1. No fracture. 2. Severe lumbar spondylosis. 3. Thoracolumbar levoscoliosis. Reviewed, dictated and finalized at location E.
--- NOTE | ~2023-12-25 | CT_ITS ---
EXAMINATION: CT cervical spine wo con DATE: 12/25/2023 18:44 INDICATION: Neck pain. TECHNIQUE: Computed tomography (CT) of the cervical spine was performed without intravenous contrast. Automated exposure control and iterative reconstruction technique were employed. The dose-length pro duct was 263.59 mGy-cm. COMPARISON: None FINDINGS: There is kyphosis of cervical spine. There is interbody fusion at C3-C4. Vertebral body hei ghts are normal. There is severely decreased disc height from C4-C5 through C6-C7. The following disc levels are specifically discussed: C2-C3: There is mild bilateral uncovertebral joint osteoarthritis. There is severe right and mild lef t facet joint osteoarthritis. There is moderate right neural foraminal stenosis. There is mild centra l canal stenosis. C3-C4: There is moderate bilateral uncovertebral joint hypertrophy. There is mild bilateral facet caroline nt hypertrophy. There is moderate right and mild left neural foraminal stenosis. There is mild centra l canal stenosis. C4-C5: There is severe bilateral uncovertebral joint osteoarthritis. There is severe right and mild l eft facet joint osteoarthritis. There is mild bilateral neural foraminal stenosis. There is mild cent ral canal stenosis. C5-C6: There is severe bilateral uncovertebral joint osteoarthritis. There is severe bilateral facet joint osteoarthritis. There is mild right and moderate left neural foraminal stenosis. There is mild central canal stenosis. C6-C7: There is severe bilateral uncovertebral joint osteoarthritis. There is severe bilateral facet joint osteoarthritis. There is moderate bilateral neural foraminal stenosis. There is moderate centra l canal stenosis. C7-T1: There is mild bilateral uncovertebral joint osteoarthritis. There is severe bilateral facet javi int osteoarthritis. There is mild right and moderate left neural foraminal stenosis. There is mild ce ntral canal stenosis. IMPRESSION: 1. No fracture. 2. Severe cervical spondylosis. Reviewed, dictated and finalized at location E.
[2023-12-25 15:16] VITALS: PULSE 88; RESP 16; TEMP 37.4; O2SAT 97
[2023-12-25 17:36] VITALS: BP 125/73; PULSE 79; RESP 14; TEMP 36.3; O2SAT 100
--- NOTE | 2023-12-25 18:13 | ED.GENADULT ---
HPI - General Adult General Chief complaint: Unspecified <PABLO Baez Last Filed: 12/25/23 18:26> Stated complaint: pain to her neck <PABLO Baez Last Filed: 12/25/23 18:26> Time Seen by Provider: 12/25/23 18:13 <PABLO Baez Last Filed: 12/25/23 18:26> Focused HPI: Patient is an 78 y/o female who presents to the ED with c/o diffuse pain. Patient reports having pain throughout her neck, arms, hands, and across her lower back. States pain has been ongoing for the past 3 months. States pain became more than she could handle today. She has not been taking anything for pain. Denies any recent fall or injury. Does report urinary frequency, denies bowel or bladder incontinence, saddle anesthesia, numbness in her legs, significant abdominal pain, dysuria. Patient lives at home alone. She does not have assistance. Uses a walker, but patient was noted to have trouble even standing up from chair. GENERAL: Elderly, frail, and in no acute distress. HEAD: Normocephalic, atraumatic. CHEST: Clear to auscultation. ?No respiratory distress. HEART: Regular rate and rhythm.? MSK: No significant midline cervical spinal tenderness, TTP to bilateral paraspinal musculature. TTP throughout diffusely throughout midline lumbar spine/lumbosacral region, no palpable deformities or bony step offs. NEURO: ?Alert and oriented x3. YOMBA SHOSHONE. Patient screened in triage and initial orders placed.? ?Additional care and disposition to be based upon?diagnostic testing and treatment. <PABLO Baez Last Filed: 12/25/23 18:26> Source: patient <PABLO Baez Last Filed: 12/25/23 18:26> Mode of arrival: ambulatory <PABLO Baez Last Filed: 12/25/23 18:26> Limitations: no limitations <PABLO Baez Last Filed: 12/25/23 18:26> History of Present Illness HPI narrative: Agree with the above triage note. Additionally patient states she has been having low-grade fevers around 100.4 to 100/5 at night. She notes that she was recently discontinued her methotrexate a month ago due to concerns for her kidney function. She was told by her link trainer that methotrexate would be fine to take, therefore she plan to start taking it again soon and has a prescription waiting for her. States while she was off methotrexate she broke out in a psoriatic rash to her face. She states that she believes she has been told she has a history of psoriatic arthritis as well. Pt tells me her pain has been ongoing for multiple months. <Ellyn Hart PA-C - Last Filed: 12/25/23 21:56> Related Data Home medications: Home Medications Medication Instructions Recorded Confirmed cyclosporine 0.05 % eye drops in a 1 drp ophthalmic (eye) Q12H Dry 08/13/19 09/13/23 dropperette (Restasis) eyes mzlxvpte-skww-ntkx 8 mg-folic 400 1 tablet PO DAILY 08/13/19 09/13/23 mcg-K 50 mcg-lutein 300 mcg tablet (Centrum Silver Women) meloxicam 15 mg tablet 15 mg PO DAILY 01/15/21 09/13/23 apremilast 30 mg tablet (Otezla) 30 mg PO BID 09/07/22 09/13/23 duloxetine 60 mg capsule,delayed 60 mg PO DAILY 09/07/22 09/13/23 release ascorbic acid (vitamin C) 500 mg 500 mg PO DAILY 10/03/22 09/13/23 tablet <Lianna Najera PA-C - Last Filed: 12/25/23 18:26> Allergies/adverse reactions: Allergies Allergy/AdvReac Type Severity Reaction Status Date / Time lidocaine Allergy Severe BECAME Verified 10/17/23 20:59 VERY SHAKEY, WENT TO ER adhesive tape Allergy Intermediate RASH Verified 10/17/23 20:59 amoxicillin AdvReac Unknown unknown Verified 10/17/23 20:59 codeine AdvReac Unknown KEEPS HER Verified 10/17/23 20:59 AWAKE <Lianna Najera PA-C - Last Filed: 12/25/23 18:26> Review of Systems Review of Systems: CONSTITUTIONAL: Denies fever, chills, or sweats. EYES: Denies visual changes, redness, or discharge. EN
[2023-12-25] MEDS: ACETAMINOPHEN 500 MG TABLET 1000 MG PO (18:22)
[2023-12-25 20:35] LABS: Basophils Absolute Auto 0.1 K/mm3 (0.0-0.1); Basophils Percent Auto 0.6 % (0.2-1.2); Eosinophils Absolute Auto 0.1 K/mm3 (0-0.3); Eosinophils Percent Auto 0.6 % (0-4.4); Hematocrit 35.6 % (37.0-47.0); Hemoglobin 11.8 g/dL (12.0-15.0); Immature Granulocyte Absolute 0.02 K/mm3 (0.00-0.031); Immature Granulocyte Percent A 0.2 % (0-0.5); Lymphocytes Absolute Auto 2.18 K/mm3 (0.9-3.2); Lymphocytes Percent Auto 26.5 % (18.3-44.2); Mean Corpuscular HGB Conc 33.1 g/dl (32-36); Mean Corpuscular Hemoglobin 32.9 pg (26-34); Mean Corpuscular Volume 99.2 fl (80-100); Mean Platelet Volume 9.5 fl (7.4-10.4); Monocytes Absolute Auto 0.3 K/mm3 (0.1-0.6); Monocytes Percent Auto 3.9 % (2.6-8.5); Neutrophils Absolute Auto 5.6 K/mm3 (1.3-6.7); Neutrophils Percent Auto 68.2 % (45.5-73.1); Platelet Count Result 200 k/mm3 (150-375); Red Blood Count 3.59 M/mm3 (4.2-5.4); Red Cell Distribution Width 11.7 % (11.5-14.5); White Blood Count 8.2 K/mm3 (4.5-10.0)
[2023-12-25 20:37] LABS: Alanine Aminotransferase 28 U/L (6-35); Albumin Level 4.2 g/dL (3.5-5.1); Alkaline Phosphatase 126 U/L (38-126); Anion Gap 8 mmol/L (4-12); Aspartate Amino Transferase 39 U/L (14-36); Bilirubin,Total 1.1 mg/dL (0.2-1.3); Blood Urea Nitrogen 27 mg/dL (7-17); CRP 2.2 mg/dL (<1.0); Carbon Dioxide 27 mmol/L (22-30); Chloride 98 mmol/L (98-107); Estimated CRCL calculation 29 ml/min; Estimated Glomerular Filt Rate 43; Glucose 111 mg/dL (65-110); Potassium 3.9 mmol/L (3.4-5.0); Sodium 133 mmol/L (137-145)
[2023-12-25 21:07] LABS: Erythrocyte Sedimentation Rate 55 mm/hr (0-20)
[2023-12-25 21:26] LABS: Appearance Urine Clear (Clear); Bilirubin Urine Negative (Negative); Blood Urine Negative (Negative); Color Urine Yellow (Yellow); Glucose Urine UA Negative (Negative); Ketones Urine Negative (Negative); Leukocyte Esterase Ur 1+ LEU/UL (Negative); Need Manual Microscopic Reviewed; Nitrate Urine Negative (Negative); Non Pathogenic Casts 0-2; Protein Urine Trace mg/dL (Negative); Specific Grav Ur 1.021 (1.001-1.035); Squamous Epithelial Cell Urine None Seen /hpf (Few); Urobilinogen Urine 0.2 mg/dL (<2.0); WBC Urine 21-50 /hpf (0-3); pH Urine 5.5 (5.0-9.0)
[2023-12-25 21:27] LABS: Bacteria Urine 1+ /hpf
[2023-12-25 21:30] LABS: Add Urine Microscopic? YES
[2023-12-25 21:44] VITALS: BP 130/87; PULSE 84; RESP 16; O2SAT 98
[2023-12-25] MEDS: CEPHALEXIN 500 MG CAPSULE PO (22:05)
[2023-12-25] MEDS: predniSONE 20 MG TABLET 40 MG PO (22:05)
== END 2023-12-25 22:30 | disposition home or self-care (01) ==
PROVIDERS: Physician Assistant; Emergency Provider Physician Assistant; PCP Family Medicine
DX: M25.511 Pain in right shoulder (principal); R82.998 Other abnormal findings in urine; F41.9 Anxiety disorder, unspecified; F32.A Depression, unspecified; I10 Essential (primary) hypertension
CPT/HCPCS: 36415; 72125; 72131; 80053; 81001; 85025; 85652; 86140; 87086; 87088; 99284; A9270; J7512

== ENCOUNTER 2024-01-22 11:49 | Outpatient (CLI) | payer MEDICARE, SELFPAY ==
[2024-01-22 14:03] LABS: Urine Cotinine NEGATIVE
[2024-01-22 14:06] LABS: INR 1.1; Prothrombin Time 14.2 Seconds (11.1-14.7)
[2024-01-22 14:07] LABS: Partial Thromboplastin Time 28.3 Seconds (22.3-36.8)
[2024-01-22 17:15] LABS: Hemoglobin A1C 5.8 % (<5.7)
== END 2024-01-22 11:50 | disposition home or self-care (01) ==
PROVIDERS: Anesthesiology; PCP Nurse Practitioner Family; Visit Provider Orthopaedic Surgery
DX: Z01.818 Encounter for other preprocedural examination (principal); M17.12 Unilateral primary osteoarthritis, left knee; N18.9 Chronic kidney disease, unspecified
CPT/HCPCS: 36415; 80307; 83036; 85610; 85730; 87641

== ENCOUNTER 2024-01-24 11:38 | Outpatient (CLI) | payer MEDICARE, SELFPAY ==
[2024-01-24 16:19] LABS: MRSA (PCR) NOT DETECTED (NOT DETECTE)
== END 2024-01-24 11:39 | disposition home or self-care (01) ==
LOC: ANHLAB 11:40
PROVIDERS: PCP Nurse Practitioner Family; Visit Provider Orthopaedic Surgery
DX: Z01.818 Encounter for other preprocedural examination (principal); M17.12 Unilateral primary osteoarthritis, left knee
CPT/HCPCS: 87081; 87641

== ENCOUNTER 2024-02-16 13:45 | Observation (INO) | payer MEDICARE, SELFPAY ==
--- NOTE | 2024-01-22 12:48 | PC.NURSE ---
Report to the Outpatient Waiting Room, entrance under the green pavilion located off [facility], at time _8:00AM on date __02/15/24 . Planned Procedure Time: _10:00 AM . Time changes happen often and if your time is changed the preop area will call you the afternoon before. - You and your visitor will be asked to self-screen and do not enter if you have any COVID symptoms. - A mask is optional within the hospital at this time. Patients may have clear liquids (water, carbonated beverages, clear teas, apple juice) until 3 hours prior to surgery(7:00AM) with a maximum of 20 ounces. - No food from midnight until time of surgery - Infants may have breast milk until 4 hours before surgery, infant formula 6 hours prior to surgery. - Children will be allowed to drink immediately following surgery. If applicable, please bring a bottle or sippy cup to assist with drinking. Juice, water, soda, and popsicles are readily available. For infants on formula, please bring formula the day of surgery. Pacifiers are allowed. Take the following medications with a SIP of water the morning of surgery: ___DULOXETINE, EYE DROP IF NEEDED DO NOT STOP ANY OF YOUR OTHER PRESCRIPTION MEDICATIONS PRIOR TO SURGERY ?EXCEPT THE FOLLOWING Medications to discontinue per physician ____PT STATES HOLD METHOTREXATE 2 WKS PRIOR TO SURGERY PER DR POSEY.LAST DOSE01/31/24. HOLD ALL VITAMINS AND SUPPLEMENTS 3 DAYS PRE OP PER ANESTHESIA LAST DOSE 02/11/24. MAY TAKE TYLENOL IF NEEDED FOR PAIN TOTAL JOINT CLASS 01/24/24 AT 10 AM Please no make-up, nail bolivian, hairspray, perfume, deodorant, or body powder the day of surgery. No jewelry (including any body piercings) or valuables the day of surgery, leave them at home. Please take a shower or bath the night before, or the morning of, surgery with an antibacterial soap. Wear comfortable, loose fitting clothing. Children are encouraged to wear pajamas. - Jewelry must be removed prior to entering the operating room. Rings and piercings that are not removed may be cut off. - The hospital will not accept responsibility for valuables. - Please leave all valuables, including medications, at home the day of surgery. If you are going home after surgery, a licensed emergency medical technician/driver must drive you home. - NO public transportation without another adult if you receive anesthesia. - We recommend that an adult stay with you for 24 hours following discharge. - We also recommend that you do not drive, make important decision, drink alcoholic beverages, or take any drugs that were not prescribed by your health care provider for at least 24 hours after your discharge time. Follow any additional instructions given to you from your surgeon. If you or anyone in your household have experienced Covid symptoms in the past week, please notify your surgeon or the nurse liaison at the phone number below for possible testing. VERBAL AND WRITTEN instructions given to ___PATIENT and asked if any additional questions and then verbalized understanding. Patient advised to call surgeon office or pre surgery nurse liaison [phone] if any additional questions.
[2024-01-22 13:19] VITALS: BP 138/76; PULSE 69; RESP 18; TEMP 36.6; O2SAT 97; BMI 22.8
[2024-02-15] VITALS (15 sets, daily range): BP systolic 99–126; BP diastolic 46–73; PULSE 69–84; RESP 16–20; TEMP 36.6–37; O2SAT 91–100; BMI 25.2; BMI 25.4
--- NOTE | 2024-02-15 07:22 | WPDHPUPDATE1 ---
History and Physical Update Update Date/Time: 02/15/24 07:22 History and Physical has been reviewed, including an updated exam of the patient. There are NO changes in the patient's condition. Risks, benefits, and alternatives have been discussed and questions answered. Patient agrees to proceed with procedure.
[2024-02-15] MEDS: ACETAMINOPHEN 500 MG TABLET 1000 MG PO (09:10)
[2024-02-15] MEDS: TRANEXAMIC ACID 1,000MG/ISO100 1,000 MG/100 ML BAG 200 MG IVPB (09:25)
--- NOTE | 2024-02-15 10:01 | WPDANESEPPF ---
Anes - Initial Pre Proc Eval Procedure: Operation Date: 02/15/24 10:00 Proposed Procedures p Left Custom Total Knee Arthroplasty - Bo Stevens MD Date/Time: 02/15/24 10:01 Surgeon: Bo Stevens MD Pre Op Diagnosis: Prim O A Left Knee Patient Data Age: 79 Gender: F Height: 1.63 m Weight: 61.8 kg Last Vital Signs Temp 98.6 F 02/15/24 09:29 Pulse 71 02/15/24 09:29 Resp 16 02/15/24 09:29 BP 119/57 L 02/15/24 09:29 Pulse Ox 96 02/15/24 09:29 O2 Del Method Room Air 02/15/24 09:29 Allergies Allergy/AdvReac Type Severity Reaction Status Date / Time adhesive tape Allergy Intermediate RASH Verified 02/15/24 09:28 amoxicillin AdvReac Unknown unknown Verified 02/15/24 09:28 codeine AdvReac Unknown KEEPS HER Verified 02/15/24 09:28 AWAKE NSAIDS (Non-Steroidal AdvReac Other Verified 02/15/24 09:28 Anti-Inflamma Home Medications Medication Instructions Recorded Confirmed Type cyclosporine 0.05 % eye drops in a 1 drp ophthalmic (eye) Q12H Dry 08/13/19 01/23/24 History dropperette (Restasis) eyes exijupip-zqjk-fgrr 8 mg-folic 400 1 tablet PO DAILY 08/13/19 01/23/24 History mcg-K 50 mcg-lutein 300 mcg tablet (Centrum Silver Women) acetaminophen 650 mg 650 mg PO Q12H PRN pain #7 tabs 12/08/20 01/23/24 Rx tablet,extended release (Tylenol Arthritis Pain) apremilast 30 mg tablet (Otezla) 30 mg PO BID 09/07/22 01/23/24 History duloxetine 60 mg capsule,delayed 60 mg PO DAILY 09/07/22 01/23/24 History release ascorbic acid (vitamin C) 500 mg 500 mg PO DAILY 10/03/22 01/23/24 History tablet methotrexate sodium 2.5 mg tablet 5 mg PO WEEKLY 01/22/24 01/22/24 History Laboratory Tests 02/15/24 09:23 Blood Type Pending Antibody Screen Pending Patient hx anesthesia problems: none Family hx anesthesia problems: other (Daughter reports that she had low BP w one surgery in the past (poss hip sx). ) Results Review: All pre-operative results and documents have been reviewed as part of the pre-operative evaluation. [facility] Past Medical History Medical History DEZ positive Anxiety Arthritis Bilateral sacroiliitis Bronchitis Carpal tunnel syndrome Colitis Constipation Cystocele DDD (degenerative disc disease) Depression Diverticulitis Dry eyes GERD (gastroesophageal reflux disease) Hemoptysis HTN (hypertension) IBS (irritable bowel syndrome) Psoriasis (a type of skin inflammation) Rectal polyp Rectocele Volvulus Surgical History Surgical History H/O colonoscopy History of bladder surgery History of carpal tunnel release History of colon resection History of hemorrhoidectomy 09/21/2022 - Excision right anterior complex internal and external hemorrhoids, excision left posterior complex internal and external History of hysterectomy History of right hip replacement Hx of tonsillectomy Social History Social History Smoking status: Never smoker Second hand tobacco smoke exposure: No Additional smoking assessment comments: DENIES ANY FORM OF TOBACCO USE Alcohol intake: never Substance use: never Substance use type: does not use Lack of Transportation: No Lack of Food: Never True Current Housing: I Have Housing Concerned About Future Housing: No Difficulty Paying Gas/Electric Bills: No Difficulty Paying for Meds: No Currently Unemployed: No Education: High School Diploma/GED Difficulty w/ Childcare or Family Care: No Living arrangements: alone Gender identity (if verbalized by the patient): Female Spiritual care concerns: No Agree to blood products: No Anes - Eval Final PreProcedure Day of Procedure 02/15/24 10:01 Patient weight: normal Heart: regular rate and rhythm Lungs: clear to auscultation
--- NOTE | 2024-02-15 10:01 | SUR.PREOP ---
1000- PT HAS A DNR AT HOME. DID NOT BRING TODAY TO SURGERY. DISCUSSED WITH PT AND DAUGHTER THAT SHE WILL BE A FULL CODE TODAY. PT AN DAUGHTER BOTH AGREED.
[2024-02-15] MEDS: ceFAZolin 2 GM/D5W 50 ML 2 GM/50 ML BAG IVPB ×2 (10:25→17:36)
[2024-02-15] MEDS: SODIUM CHLORIDE 0.9% IV 37.7 ML, MORPHINE SULFATE INJ (*CRX) 2 MG, ROPivacaine HCL 1% 2... INFILTRATE (10:47)
--- NOTE | 2024-02-15 12:02 | P.OP_ITS ---
Procedure Note - Detailed Date of Procedure 02/15/24 Pre-op Diagnosis Severe left knee osteoarthritis. Post-op Diagnosis Same Procedure Performed Total knee arthroplasty, left. Surgeon Bo Stevens MD Electric Power Line Repairer Alona Winston PA-C Anesthesia General and Regional (Subsartorial block.) Findings Custom knee arthroplasty with excellent fit. Advanced disease. Significant cystic and degenerative changes. Moderate synovitis. Patient with known history of inflammatory disease. No significant releases required. [place] decreased slightly as posterior resection was 1 additional mm. PCL preserved. Description of Procedure Preoperative antibiotics were given. The limb was prepped and draped in the usual sterile fashion with a well-padded tourniquet high on the thigh. The limb was exsanguinated and the tourniquet inflated to 300 mmHg. A longitudinal incision was created just medial to the patella. A trivector approach to the knee was performed. Arthrotomy was taken down through the joint capsule. No significant releases were initially taken. The femur was exposed and the F1 jig was applied. The coring tool was used to remove the cartilage for the F2 jig to sit flush with the bone. The jig was pinned and the distal cut carefully taken. Caliper measurements confirmed appropriate bony resections according to the preoperative templated plan. The F4 cutting jig for the femur was applied, at the standard rotation. The AP and anterior chamfer cuts were taken. The F5 jig was applied and the posterior chamfer cuts were taken. The tibia was prepared using the T1 jig, after removing cartilage for the jig co ntact points. Proper alignment was checked with the alignment ira. The tibia was cut using the T1u guide. Gap balancing was performed. Gap measurements were taken and the knee was trialed. Excellent alignment and soft tissue balancing was confirmed. The posterior cruciate ligament was recessed along the proximal tibia. The patella was cut for resurfacing. Three lug holes were drilled. Meniscal remnants were removed. The trial components were assembled. Excellent range of motion and proper soft tissue balancing were confirmed throughout the full range of motion. Patellar tracking was excellent. The knee was copiously irrigated periodically throughout the procedure. The real implants were cemented into position. Excess cement was carefully removed. The wound was closed in layers with interrupted #1 Vicryl suture, 2-0 strata fix suture, 0 strata fix suture, 2-0 strata fix suture. Steri-Strips placed on the skin with the knee flexed. Sterile bulky dressing applied. The patient was brought to the recovery room in stable condition. There were no complications. Physician fiscal assistant, Alona Winston PA-C, required for surgery; including patient positioning, draping, tissue retraction, maintaining instrument position, cement removal, wound closure, and dressing placement. Implants Conformis Custom total knee arthroplasty. Cemented. Cruciate retaining. 7C insert. 35 mm oval patella. Estimated Blood Loss 50 Tourniquet Time Total Tourniquet Time: 63 Drains No Complications No immediate complications Condition Stable Disposition PACU [facility] Billing Surgery - Charge Forward: Surgery Billing
[2024-02-15] MEDS: LACTATED RINGERS 1,000 ML 30 ML IV CONT ×2 (12:20)
[2024-02-15] MEDS: diazePAM INJ (*CRX) 10 MG/2 ML SYRINGE 2 MG IV PUSH (13:39)
[2024-02-15] MEDS: fentaNYL CITRATE INJ (*CRX) 100 MCG/2 ML VIAL 25 MCG IV PUSH (14:12)
[2024-02-15] MEDS: SENNA/DOCUSATE SODIUM TABLET 2 TAB PO (16:39)
[2024-02-15] MEDS: predniSONE 5 MG TABLET PO (16:39)
--- NOTE | 2024-02-15 17:18 | ADMGEN ---
This patient, Alissa Hutchinson, was admitted to 3 Med Surg Room 304-01. Patient/family oriented to hospital policies and general routines including ID bracelet, bed and alarms, visiting hours, pain management, procedures, bathroom and other care routines, personal items, smoking policy, room service/diet, and visiting hours. Information on how to activate the Rapid Response Team has been discussed. Patient/Family are encouraged to report perceived risks to care and to ask questions if they do not understand what they are told or what they should do.
[2024-02-15] MEDS: oxyCODONE/ACETAMINOPHEN (*CRX) 10-325 MG TABLET 1 TAB PO (17:36)
[2024-02-15] MEDS: ACETAMINOPHEN 325 MG TABLET 650 MG PO (17:36)
[2024-02-15] MEDS: FAMOTIDINE 20 MG TABLET PO (21:09)
[2024-02-15] MEDS: cycloSPORINE 0.4 ML OPHTH SOLUTION 1 DROP EACH EYE (21:10)
--- NOTE | 2024-02-15 21:11 | PC.NURSE ---
Pt states she can not take aspirin because of history of taking methotrexate
[2024-02-15] MEDS: HYDROmorphone HCL INJ (*CRX) 1 MG/ML SYR IV PUSH (21:38)
[2024-02-16] VITALS (12 sets, daily range): BP systolic 119–132; BP diastolic 55–78; PULSE 79–88; RESP 16–18; TEMP 35.9–37; O2SAT 86–100
--- NOTE | ~2024-02-16 | XR_ITS ---
EXAMINATION: [id number] DATE: 02/15/2024 13:02 CDT INDICATION: Left total knee arthroplasty TECHNIQUE: 2 views left knee FINDINGS: There is a left total knee arthroplasty in expected position. Subcutaneous gas with fluid and air in the joint are consistent with recent surgery. No evidence of periprosthetic fracture. IMPRESSION: 1. Recent left total knee arthroplasty. Reviewed, dictated and finalized at location B.
[2024-02-16] MEDS: ceFAZolin 2 GM/D5W 50 ML 2 GM/50 ML BAG IVPB ×2 (00:48→10:39)
[2024-02-16] MEDS: ACETAMINOPHEN 325 MG TABLET 650 MG PO ×4 (00:49→18:20)
[2024-02-16] MEDS: HYDROmorphone HCL INJ (*CRX) 1 MG/ML SYR IV PUSH (05:53)
[2024-02-16 06:35] LABS: Basophils Absolute Auto 0.1 K/mm3 (0.0-0.1); Basophils Percent Auto 0.6 % (0.2-1.2); Eosinophils Percent Auto 0.1 % (0-4.4); Hematocrit 33.7 % (37.0-47.0); Hemoglobin 10.9 g/dL (12.0-15.0); Immature Granulocyte Absolute 0.06 K/mm3 (0.00-0.031); Immature Granulocyte Percent A 0.6 % (0-0.5); Lymphocytes Absolute Auto 1.32 K/mm3 (0.9-3.2); Lymphocytes Percent Auto 12.7 % (18.3-44.2); Mean Corpuscular HGB Conc 32.3 g/dl (32-36); Mean Corpuscular Hemoglobin 32.9 pg (26-34); Mean Corpuscular Volume 101.8 fl (80-100); Mean Platelet Volume 9.2 fl (7.4-10.4); Monocytes Absolute Auto 1.3 K/mm3 (0.1-0.6); Monocytes Percent Auto 12.2 % (2.6-8.5); Neutrophils Absolute Auto 7.7 K/mm3 (1.3-6.7); Neutrophils Percent Auto 73.8 % (45.5-73.1); Platelet Count Result 187 k/mm3 (150-375); Red Blood Count 3.31 M/mm3 (4.2-5.4); Red Cell Distribution Width 12.5 % (11.5-14.5); White Blood Count 10.4 K/mm3 (4.5-10.0)
[2024-02-16 06:48] LABS: Anion Gap 9 mmol/L (4-12); Blood Urea Nitrogen 24 mg/dL (7-17); Calcium 8.5 mg/dL (8.4-10.2); Carbon Dioxide 25 mmol/L (22-30); Chloride 99 mmol/L (98-107); Estimated CRCL calculation 26 ml/min; Estimated Glomerular Filt Rate 39; Glucose 140 mg/dL (65-110); Potassium 4.1 mmol/L (3.4-5.0); Sodium 133 mmol/L (137-145)
--- NOTE | 2024-02-16 09:04 | WPDANESPN ---
Anes - Prog Note Post-Op Date/Time: 02/16/24 09:04 Cardiovascular status: normal Respiratory status: normal Airway patency: baseline Mental status: baseline Post-Op hydration status: normal Vital Signs: Last Vital Signs Temp 36.2 C L 02/16/24 08:11 Pulse 88 02/16/24 08:11 Resp 18 02/16/24 08:11 BP 128/66 02/16/24 08:11 Pulse Ox 92 02/16/24 08:56 O2 Del Method Room Air 02/16/24 08:56 O2 Flow Rate 1 02/16/24 00:53 Pain Score (VAS): 0 I/O: Intake & Output 02/15/24 02/16/24 02/16/24 23:59 07:59 15:59 Intake Total 512 250 Balance 512 250 Laboratory Tests 02/16/24 06:11 02/16/24 06:11 02/15/24 02/16/24 09:23 06:11 WBC 10.4 H RBC 3.31 L Hgb 10.9 L Hct 33.7 L MCV 101.8 H MCH 32.9 MCHC 32.3 RDW 12.5 Plt Count 187 MPV 9.2 Immature Gran % (Auto) 0.6 H Neut % (Auto) 73.8 H Lymph % (Auto) 12.7 L [place] % (Auto) 12.2 H Eos % (Auto) 0.1 Baso % (Auto) 0.6 Lymph # (Auto) 1.32 [place] # (Auto) 1.3 H Eos # (Auto) 0.0 Baso # (Auto) 0.1 Abs Immat Gran (auto) 0.06 H Absolute Neuts (auto) 7.7 H Absolute Nucleated RBC 0.000 Nucleated RBC % 0.0 Sodium 133 L Potassium 4.1 Chloride 99 Carbon Dioxide 25 Anion Gap 9 BUN 24 H Creatinine 1.30 H Estim Creat Clear Calc 26 Estimated GFR 39 L Glucose 140 H Calcium 8.5 Blood Type B Positive Antibody Screen Negative Post-procedural complaints: none Patient Feedback: Patient satisfied with anesthetic care.
[2024-02-16] MEDS: DULoxetine HCL 60 MG CAPSULE.DR PO (09:05)
[2024-02-16] MEDS: polyethylene glycoL 3350 17 GM POWD.PACK PO (09:05)
[2024-02-16] MEDS: SENNA/DOCUSATE SODIUM TABLET 2 TAB PO ×2 (09:05→18:20)
[2024-02-16] MEDS: cycloSPORINE 0.4 ML OPHTH SOLUTION 1 DROP EACH EYE ×2 (09:05→20:35)
[2024-02-16] MEDS: FAMOTIDINE 20 MG TABLET PO ×2 (09:05→20:36)
[2024-02-16] MEDS: ASPIRIN 81 MG ENTERIC TABLET PO (09:05)
[2024-02-16] MEDS: CYCLOBENZAPRINE HCL 5 MG TABLET PO ×2 (09:08→18:26)
[2024-02-16] MEDS: traMADol HCL (*CRX) 50 MG TABLET PO ×2 (09:08→18:21)
--- NOTE | 2024-02-16 09:52 | PM.PNORT ---
Progress Note: A&P Assessment and Plan (1) Status post total left knee replacement: Code(s): Z96.652 - Presence of left artificial knee joint Status: Acute Assessment and Plan: POD #1 Left total knee arthroplasty. Patient complaining of sever pain in the knee. She did not get up yesterday and was using the bedpan. Physical therapy working with patient at the time of my visit. Patient had difficulty ambulating. Therapy recommendation is for acute rehab. She does live at home on her own. I recommend acute rehab or home health services at discharge. Patient does seem slightly confused although she is alert and oriented. Patient has a history of rheumatologic disorders and is typically on Methotrexate. She has been off of this for 2 weeks and may resume 2 weeks after surgery. This could be contributing to her increase in pain. Patient is also very sensitive to medications. Discharge planning in progress. Subjective Subjective Date/Time Seen: 02/16/24 09:53 Interval history: Patient slightly confused today. Complains of severe pain with any motion or touch to the knee. Patient very apprehensive to move the knee. Denies numbness or tingling. No other complaints. Review of Systems Review of Systems: All systems reviewed & are unremarkable except as noted in HPI and below Exam Narrative: 79-year-old normal weight female. Resting in bed. Uncomfortable and complaining of pain. Alert and oriented x3 although she does seem a little confused. No acute distress. Wearing compression sock on the non-operative leg and SHAKA wrap on the operative leg. Dressing intact with no drainage. Moderate swelling. Slight ecchymosis. Minimal erythema. No hematoma. No warmth. Range of motion limited due to pain 10-60. Calf nontender. Fires quad. Neurologic status intact. No varicosities. Distal pulses palpable. Light touch sensation intact. Good capillary refill. Objective Data Vital Signs Vital Signs: Vital Signs - 24 hr 02/15/24 12:20 02/15/24 12:35 02/15/24 12:50 Temperature 98.1 F Pulse Rate 84 80 80 Respiratory Rate 20 18 20 Blood Pressure 123/73 118/67 126/59 L Pulse Oximetry 99 100 100 Oxygen Delivery Simple Face Mask Simple Face Mask Simple Face Mask Oxygen Flow Rate 8 8 8 02/15/24 13:05 02/15/24 13:20 02/15/24 13:35 Temperature Pulse Rate 83 84 84 Respiratory Rate 20 20 20 Blood Pressure 115/64 107/56 L 111/63 Pulse Oximetry 100 92 91 Oxygen Delivery Room Air Room Air Room Air Oxygen Flow Rate 02/15/24 14:04 02/15/24 13:50 02/15/24 14:20 Temperature 98.5 F Pulse Rate 77 77 79 Respiratory Rate 18 18 18 Blood Pressure 103/46 L 110/64 99/52 L Pulse Oximetry 96 96 97 Oxygen Delivery Nasal Cannula Nasal Cannula Nasal Cannula Oxygen Flow Rate 2 2 2 02/15/24 14:26 02/15/24 14:45 02/15/24 15:00 Temperature 97.9 F 97.9 F Pulse Rate 73 69 Respiratory Rate 16 18 Blood Pressure 102/54 L 104/58 L Pulse Oximetry 99 99 95 Oxygen Delivery Nasal Cannula Oxygen Flow Rate 2 02/15/24 15:30 02/15/24 20:15 02/16/24 00:52 Temperature 97.9 F 97.9 F Pulse Rate 73 81 Respiratory Rate 18 16 Blood Pressure 106/62 120/62 Pulse Oximetry 98 94 86 L Oxygen Delivery Room Air Oxygen Flow Rate 02/16/24 00:53 02/16/24 00:11 02/16/24 06:15 Temperature 98.5 F 96.6 F L Pulse Rate 88 88 Respiratory Rate 16 16 Blood Pressure 127/57 L 119/64 Pulse Oximetry 95 95 92 Oxygen Delivery Nasal Cannula Oxygen Flow Rate 1 02/16/24 08:11 02/16/24 08:56 02/16/24 07:54 Temperature 97.2 F L Pulse Rate 88 Respiratory Rate 18 Blood Pressure 128/66 Pulse Oximetry 100 92 Oxygen Delivery Room Air Room Air Oxygen Flow Rate Intake/Output Intake/Output: Intake & Output 02/13/24 02/14/24 02/15/24 02/16/24 23:59 23:59 23:59 23:59 Intake Total 562 250 Balance 562 250 Meds/Results Medications: Active Medications Generic Name Dose Route Start Last Admin
--- NOTE | 2024-02-16 12:00 | PM.DS ---
DS: Admitting Diagnosis Discharge Date 02/17/24 Admitting Diagnosis Knee arthritis. DS: Discharge Diagnosis Discharge Diagnosis (1) Status post total left knee replacement: Code(s): Z96.652 - Presence of left artificial knee joint Status: Acute Assessment and Plan: Postop day 1: Left total knee arthroplasty. Patient complaining about pain and trouble ambulating. Patient lives at home by herself but has someone who can come and stay with her this weekend. We had a lengthy discussion regarding postoperative wound care, limitations, expectations, and exercises. Patient shows understanding. She may require home health or rehab. D/C pending based on how she is doing tomorrow. DVT prophylaxis: 81 mg baby aspirin b.i.d. for 14 days. Pain medication: Percocet. Patient has followup appointment with Dr. Stevens in 3 weeks. DS: Summary Hospital Course Reason for hospitalization: Total knee arthroplasty Hospital Course: Has had initial PT/OT. Patient having a lot of pain. Status at Discharge Functional status at discharge: uses cane/walker Overall status at discharge: patient is progressing back to baseline Time Spent with Patient Time attestation: Total time spent providing and/or coordinating discharge services: Exam Narrative: Elderly 79-year-old female. Alert and oriented x3. Complains of increased pain. Wearing compression socks bilaterally. Dressing intact without drainage on Mepilex. Mild swelling. No ecchymosis. No erythema. No hematoma. Range of motion limited due to pain. Calf nontender. Neurologic status intact. No varicosities. Distal pulses palpable. DS: Data Data Completed and Pending Labs on day of discharge: Labs from last 24 hours 02/16/24 06:11 WBC 10.4 H RBC 3.31 L Hgb 10.9 L Hct 33.7 L MCV 101.8 H MCH 32.9 MCHC 32.3 RDW 12.5 Plt Count 187 MPV 9.2 Immature Gran % (Auto) 0.6 H Neut % (Auto) 73.8 H Lymph % (Auto) 12.7 L [place] % (Auto) 12.2 H Eos % (Auto) 0.1 Baso % (Auto) 0.6 Lymph # (Auto) 1.32 [place] # (Auto) 1.3 H Eos # (Auto) 0.0 Baso # (Auto) 0.1 Abs Immat Gran (auto) 0.06 H Absolute Neuts (auto) 7.7 H Absolute Nucleated RBC 0.000 Nucleated RBC % 0.0 Sodium 133 L Potassium 4.1 Chloride 99 Carbon Dioxide 25 Anion Gap 9 BUN 24 H Creatinine 1.30 H Estim Creat Clear Calc 26 Estimated GFR 39 L Glucose 140 H Calcium 8.5 Discharge Plan Discharge Patient Disposition: Home, Self-Care Discharge Instructions: Remove the Scopolamine patch that was placed behind your left ear in 72 hours or less. Wash your hands after touching. See green instruction sheets. Stand Alone Forms: General Discharge Instructions Follow-up/Referrals: Alona Winston PA [Physician Balance Bridge Assembler] - Discharge Medications: New oxycodone-acetaminophen 5-325 mg tablet 1 - 2 tablet PO Q4-6H PRN (Reason: pain) Qty: 30 0RF Continued ascorbic acid (vitamin C) 500 mg tablet 500 mg PO DAILY cyclosporine [Restasis] 0.05 % Dropperette 1 drp OPHTHALMIC (EYE) Q12H Centrum Silver Women 8 mg iron-400 mcg-300 mcg Tablet 1 tablet PO DAILY acetaminophen [Tylenol Arthritis Pain] 650 mg tablet extended release 650 mg PO Q12H PRN (Reason: pain) Qty: 7 0RF duloxetine 60 mg capsule,delayed release(DR/EC) 60 mg PO DAILY Otezla 30 mg tablet 30 mg PO BID Held methotrexate sodium 2.5 mg tablet 5 mg PO WEEKLY Hold Instructions: Resume on 03/01/24. Hold for 2 weeks after surgery. Patient Comments: TAKES ON FRIDAYS
[2024-02-16] MEDS: oxyCODONE/ACETAMINOPHEN (*CRX) 10-325 MG TABLET 1 TAB PO (15:01)
[2024-02-16] MEDS: predniSONE 5 MG TABLET PO (18:20)
[2024-02-17] MEDS: oxyCODONE/ACETAMINOPHEN (*CRX) 10-325 MG TABLET 1 TAB PO ×2 (01:18→11:20)
[2024-02-17] MEDS: ACETAMINOPHEN 325 MG TABLET 650 MG PO ×3 (01:19→11:20)
[2024-02-17] MEDS: CYCLOBENZAPRINE HCL 5 MG TABLET PO (05:28)
[2024-02-17 05:56] VITALS: BP 116/87; PULSE 82; RESP 12; TEMP 37; O2SAT 94
[2024-02-17] MEDS: polyethylene glycoL 3350 17 GM POWD.PACK PO (08:09)
[2024-02-17] MEDS: ASPIRIN 81 MG ENTERIC TABLET PO (08:09)
[2024-02-17] MEDS: FAMOTIDINE 20 MG TABLET PO (08:09)
[2024-02-17] MEDS: DULoxetine HCL 60 MG CAPSULE.DR PO (08:09)
[2024-02-17] MEDS: SENNA/DOCUSATE SODIUM TABLET 2 TAB PO (08:09)
[2024-02-17] MEDS: traMADol HCL (*CRX) 50 MG TABLET PO (08:10)
[2024-02-17] MEDS: cycloSPORINE 0.4 ML OPHTH SOLUTION 1 DROP EACH EYE (08:10)
[2024-02-17 13:45] VITALS: BP 117/81; PULSE 91; RESP 18; TEMP 36.8; O2SAT 96
== END 2024-02-17 15:00 ==
LOC: ANHSURGERY 17:05 → ANH3MEDSUR 17:05
PROVIDERS: Physician Assistant Surgical; Admitting Provider Orthopaedic Surgery; PCP Nurse Practitioner Family; Visit Provider Orthopaedic Surgery
PROC: (CPT 27447; principal; 2024-02-15 10:00)
DX: M17.12 Unilateral primary osteoarthritis, left knee (principal); M65.862 Other synovitis and tenosynovitis, left lower leg; L40.9 Psoriasis, unspecified; R76.0 Raised antibody titer; I10 Essential (primary) hypertension; F41.9 Anxiety disorder, unspecified; F32.A Depression, unspecified; K21.9 Gastro-esophageal reflux disease without esophagitis; Z79.631 Long term (current) use of antimetabolite agent
CPT/HCPCS: 27447; 36415; 73560; 80048; 80307; 83036; 85025; 85610; 85730; 86850; 86900; 86901; 87641; 97110; 97116; 97162; 97165; 97530; 97535; A9270; C1713; C1776; G0378; J0171; J0690; J1170; J1885; J2270; J2371; J2405; J2704; J2795; J3010; J3360; J7120; J7512

== ENCOUNTER 2024-03-01 10:39 | Emergency (ER) | payer MEDICARE, SELFPAY ==
[2024-03-01] VITALS (25 sets, daily range): BP systolic 116–150; BP diastolic 64–92; PULSE 60–91; RESP 14–23; TEMP 36.8; O2SAT 90–99
--- NOTE | ~2024-03-01 | XR_ITS ---
EXAMINATION: XR chest 2V DATE: 03/01/2024 11:24 INDICATION: Weakness. TECHNIQUE: Frontal and lateral views of the chest were obtained. 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 No pneumonia, pleural effusio n, or pneumothorax. The heart is normal. IMPRESSION: 1. No acute cardiopulmonary disease. Reviewed, dictated and finalized at location A.
--- NOTE | 2024-03-01 10:51 | ECG_ITS ---
Test Date: 2024-03-01 10:57:13 Measurements Intervals [place] Rate: 65 P: 15 UT: 167 QRS: -7 QRSD: 92 T: 1 QT: 432 QTc: 450 Interpretive Statements SINUS RHYTHM ATRIAL COUPLET MODERATE T-WAVE ABNORMALITY, CONSIDER ANTERIOR ISCHEMIA ABNORMAL ECG No previous ECG available for comparison Electronically Signed On 03-01-2024 11:01:37 CDT by Jordan Lacy D.O.
[2024-03-01] MEDS: MECLIZINE HCL 25 MG TABLET PO (11:00)
[2024-03-01] MEDS: SODIUM CHLORIDE 0.9% IV 500 ML 999 ML IV CONT (11:00)
[2024-03-01 11:25] LABS: Basophils Percent Auto 0.7 % (0.2-1.2); Eosinophils Absolute Auto 0.1 K/mm3 (0-0.3); Hematocrit 32.5 % (37.0-47.0); Hemoglobin 10.1 g/dL (12.0-15.0); Immature Granulocyte Absolute 0.01 K/mm3 (0.00-0.031); Immature Granulocyte Percent A 0.2 % (0-0.5); Lymphocytes Absolute Auto 1.63 K/mm3 (0.9-3.2); Lymphocytes Percent Auto 35.4 % (18.3-44.2); Mean Corpuscular HGB Conc 31.1 g/dl (32-36); Mean Corpuscular Hemoglobin 31.9 pg (26-34); Mean Corpuscular Volume 102.5 fl (80-100); Mean Platelet Volume 9.1 fl (7.4-10.4); Monocytes Absolute Auto 0.6 K/mm3 (0.1-0.6); Monocytes Percent Auto 12.2 % (2.6-8.5); Neutrophils Absolute Auto 2.3 K/mm3 (1.3-6.7); Neutrophils Percent Auto 49.5 % (45.5-73.1); Platelet Count Result 271 k/mm3 (150-375); Red Blood Count 3.17 M/mm3 (4.2-5.4); Red Cell Distribution Width 13.1 % (11.5-14.5); White Blood Count 4.6 K/mm3 (4.5-10.0)
[2024-03-01 11:39] LABS: Alanine Aminotransferase 18 U/L (6-35); Albumin Level 3.4 g/dL (3.5-5.1); Alkaline Phosphatase 112 U/L (38-126); Anion Gap 9 mmol/L (4-12); Aspartate Amino Transferase 35 U/L (14-36); Bilirubin,Total 0.4 mg/dL (0.2-1.3); Blood Urea Nitrogen 22 mg/dL (7-17); Carbon Dioxide 28 mmol/L (22-30); Chloride 100 mmol/L (98-107); Estimated CRCL calculation 34 ml/min; Estimated Glomerular Filt Rate 53; Glucose 93 mg/dL (65-110); Potassium 3.8 mmol/L (3.4-5.0); Sodium 137 mmol/L (137-145)
--- NOTE | 2024-03-01 12:41 | PC.NURSE ---
pt ambulated to bathroom with walker w/ no c/o pain, pt says she is still a bit dizzy when she moves her head but she is less dizzy than before
[2024-03-01 12:46] LABS: Appearance Urine Cloudy (Clear); Color Urine Yellow (Yellow); Protein Urine Trace mg/dL (Negative); Specific Grav Ur 1.016 (1.001-1.035)
[2024-03-01 12:47] LABS: Add Urine Microscopic? YES; Bacteria Urine None Seen /hpf; Bilirubin Urine Negative (Negative); Blood Urine Negative (Negative); Glucose Urine UA Negative (Negative); Ketones Urine Negative (Negative); Leukocyte Esterase Ur Negative LEU/UL (Negative); Nitrate Urine Negative (Negative); Non Pathogenic Casts 0-2; RBC Urine 0-2 /hpf (0-2); Squamous Epithelial Cell Urine None Seen /hpf (Few); WBC Urine 0-5 /hpf (0-3)
--- NOTE | 2024-03-01 14:44 | ED.GENADULT ---
HPI - General Adult General Chief complaint: Weakness Stated complaint: dizzy, nausea Time Seen by Provider: 03/01/24 10:45 History of Present Illness HPI narrative: The patient is an 79-year-old female who presents ER with weakness and dizziness. Reports dizziness that is worsened with any movement of her head. Began about 30-40 minutes after taking 2 tablets of Percocet. No fevers or chills or sweats. No weakness in arm or leg. Denies urinary symptoms. Currently rehabbing from a knee operation. No facial droop or slurred speech. Related Data Home Medications Medication Instructions Recorded Confirmed cyclosporine 0.05 % eye drops in a 1 drp ophthalmic (eye) Q12H Dry 08/13/19 02/22/24 dropperette (Restasis) eyes rvcwnnyw-gltm-amml 8 mg-folic 400 1 tablet PO DAILY 08/13/19 02/22/24 mcg-K 50 mcg-lutein 300 mcg tablet (Centrum Silver Women) apremilast 30 mg tablet (Otezla) 30 mg PO BID 09/07/22 02/22/24 duloxetine 60 mg capsule,delayed 60 mg PO DAILY 09/07/22 02/22/24 release ascorbic acid (vitamin C) 500 mg 500 mg PO DAILY 10/03/22 02/22/24 tablet methotrexate sodium 2.5 mg tablet 5 mg PO WEEKLY 01/22/24 02/22/24 Allergies Allergy/AdvReac Type Severity Reaction Status Date / Time adhesive tape Allergy Intermediate RASH Verified 02/15/24 09:28 amoxicillin AdvReac Unknown unknown Verified 02/15/24 09:28 codeine AdvReac Unknown KEEPS HER Verified 02/15/24 09:28 AWAKE NSAIDS (Non-Steroidal AdvReac Other Verified 02/15/24 09:28 Anti-Inflamma Review of Systems Review of Systems: All systems reviewed & are unremarkable except as noted in HPI and below Constitutional: Constitutional: Reports no additional constitutional complaints ENT: Reports system reviewed and no additional complaints, except as documented Cardiovascular: Cardiovascular: Reports no additional cardiovascular complaints Respiratory: Respiratory: Reports no additional respiratory complaints Neurologic: Reports system reviewed and no additional complaints, except as documented [facility] Past Medical History Medical History DEZ positive Anxiety Arthritis Bilateral sacroiliitis Bronchitis Carpal tunnel syndrome Colitis Constipation Cystocele DDD (degenerative disc disease) Depression Diverticulitis Dry eyes GERD (gastroesophageal reflux disease) Hemoptysis HTN (hypertension) IBS (irritable bowel syndrome) Psoriasis (a type of skin inflammation) Rectal polyp Rectocele Volvulus Surgical History Surgical History H/O colonoscopy History of bladder surgery History of carpal tunnel release History of colon resection History of hemorrhoidectomy 09/21/2022 - Excision right anterior complex internal and external hemorrhoids, excision left posterior complex internal and external History of hysterectomy History of right hip replacement Hx of tonsillectomy Social History Social History Smoking status: Never smoker Second hand tobacco smoke exposure: No Additional smoking assessment comments: DENIES ANY FORM OF TOBACCO USE Alcohol intake: never Substance use: never Substance use type: does not use Do You Feel Safe in your Home?: Yes Lack of Transportation: YES Lack of Food: Never True Current Housing: I Have Housing Concerned About Future Housing: No Difficulty Paying Gas/Electric Bills: No Difficulty Paying for Meds: No Currently Unemployed: No Education: High School Diploma/GED Difficulty w/ Childcare or Family Care: No Living arrangements: alone Gender identity (if verbalized by the patient): Female Spiritual care concerns: No Agree to blood products: No Exam Narrative: GENERAL: Well-appearing, well-nourished, and in no acute distress. HEAD: Normocephalic, atraumatic. EYES: PERRL and EOMI. EN
== END 2024-03-01 15:16 ==
PROVIDERS: Emergency Provider Emergency Medicine
DX: R42 Dizziness and giddiness (principal); Z98.890 Other specified postprocedural states; I10 Essential (primary) hypertension; K21.9 Gastro-esophageal reflux disease without esophagitis; K58.9 Irritable bowel syndrome, unspecified; L40.9 Psoriasis, unspecified; M19.90 Unspecified osteoarthritis, unspecified site; Z96.641 Presence of right artificial hip joint; Z87.19 Personal history of other diseases of the digestive system; Z90.49 Acquired absence of other specified parts of digestive tract; Z90.710 Acquired absence of both cervix and uterus; R00.8 Other abnormalities of heart beat; R94.31 Abnormal electrocardiogram [ECG] [EKG]
CPT/HCPCS: 36415; 71046; 80053; 81001; 85025; 93005; 96360; 96361; 99283; A9270; J7040

== ENCOUNTER 2024-04-02 14:32 | Outpatient (CLI) | payer MEDICARE, SELFPAY ==
--- NOTE | ~2024-04-02 | XR_ITS ---
XR knee LT 3V Ordering provider: Bo Stevens MD History: . Z96.652 - Presence of left artificial knee joint . Comparison: September 13, 2023 FINDINGS: BONES: No acute fracture or dislocation. JOINT SPACES: Total knee arthroplasty. SOFT TISSUES: Normal. IMPRESSION: No acute osseous abnormality left knee. Total knee arthroplasty. Reviewed, dictated and finalized at location A.
== END 2024-04-02 14:33 | disposition home or self-care (01) ==
LOC: ANHIMG 14:40
PROVIDERS: PCP Nurse Practitioner Family; Visit Provider Orthopaedic Surgery
DX: Z96.652 Presence of left artificial knee joint (principal); Z47.1 Aftercare following joint replacement surgery
CPT/HCPCS: 73562

== ENCOUNTER 2024-09-01 12:46 | Outpatient (CLI) | payer MEDICARE, SELFPAY ==
--- NOTE | ~2024-09-01 | MR_ITS ---
MRI of the lumbar spine Clinical History: Lumbar spondylosis, left hip pain Technique: Axial T2-weighted images, and sagittal T1-weighted, T2-weighted, and T2 fat-sat images wer e acquired. Findings: No acute fracture seen. There is 3 mm retrolisthesis of L1 over L2. There is 3 mm retrolist hesis of L2 over L3. No suspicious bone marrow signal abnormality seen. There are reactive marrow sig nal changes due to benign degenerative disc disease, most prominent about the origin of L2 L3-L4, L4- L5 disc spaces. At L1-L2, there is severe degenerative disc narrowing with severe facet arthropathy. No alison central canal stenosis. There is severe right neural foraminal compromise, and probable moderate left neural foraminal comprise. At L2-L3, there is severe degenerative disc narrowing. There is disc bulge with severe facet arthropa thy. No alison central canal stenosis. There is severe left neural foraminal contrast. Right neural fo ramen preserved. At L3-L4, there is severe degenerative disc narrowing. There is diffuse disc bulge with severe facet arthropathy, with mild to moderate central canal stenosis. There is severe left neural foraminal, rig ht. Right neural foramen preserved. At L4-L5, there is severe degenerative disc narrowing with possible partial fusion across the disc sp jordan. There is disc bulge and severe facet arthropathy, with moderate spinal canal stenosis/thecal sac compression. There is moderate to severe bilateral neural foraminal narrowing. L5-S1, there is severe degenerative distended. There is mild facet arthropathy. No disc bulge or eber iation. No central canal stenosis. There is probable mild bilateral neural foraminal narrowing. Paravertebral soft tissues are unremarkable. Impression: Severe degenerative spondylosis throughout the lumbar spine, as detailed above. There is multilevel n eural foraminal narrowing and spinal canal stenosis. Reviewed, dictated and finalized at location . Impression: Severe degenerative spondylosis throughout the lumbar spine, as detailed above. There is multilevel neural foraminal narrowing and spinal canal stenosis.
--- NOTE | ~2024-09-01 | MR_ITS ---
MRI of the left hip Clinical history: Pain Technique: Coronal T1-weighted, T2-weighted, and proton-density fat-sat images, and axial T1-weighted and proton-density fat-sat images were acquired through the pelvis. Coronal T2-weighted images and c oronal, axial, and sagittal proton-density fat-sat images were acquired through the left hip. Findings: There is no fracture or avascular necrosis of left hip. Right hip arthroplasty in place. No significant bone marrow signal abnormality seen in the visualized osseous structures. There is mild chondromalacia of the left hip joint. No joint effusion. There is minimal degenerative change of the SI joints. Visualized musculature about the pelvis and left hip is unremarkable. No muscle atrophy or edema evid ent. Just tendons are intact. No soft tissue mass evident. Probable mild left trochanteric bursitis p resent. No other fluid collection. IMPRESSION: Mild left trochanteric bursitis. Mild chondromalacia of the left hip joint. Right hip arthroplasty in place. Reviewed, dictated and finalized at location .
--- OUTSIDE RECORDS SUMMARY | 2024-09-01 12:50 | XMS_ITS | Patient Health Summary ---
Author Organization [facility] Address [address] [place] [address] Care Team Providers Care Certified Dietary Manager Name Role Phone Rajesh Palmer MD Unavailable Aurea Plaza MD Primary Care Provider [phone] Note from [facility],non-owned Affiliates and Associated Physician Practices is amultiple site organization consisting of ambulatory clinics and hospital sitesin [place] and [place]. This disclosure is being madepursuant to the Care Everywhere program and may not contain all information available regarding this patient. Last updated 18.[facility] Allergies * Adhesive Sensitivity(Rash) * Codeine(Sleeplessness and itching) * Lidocaine(Extreme shakes) * Clindamycin(Unknown),Inactive Medications * Be aware that medications may not be up to date on this document. Alwaysverify current medications with the patient. * methotrexate 2.5 MG tablet Take 2.5 mg by mouth every 7 days Reasons: 10 tab * folic acid (FOLVITE) 1 MG tablet Take 1 mg by mouth once daily * Ktukmopdskx-Tjpztgdcver-Ojs D3 0872-1435-514 MG-MG-UNIT Take 2 Tabs by mouth once daily * meloxicam (MOBIC) 15 MG tablet Take 15 mg by mouth once daily * Multiple Vitamins-Minerals (CENTRUM SILVER 50+WOMEN) TABS Take 1 Tab by mouth once daily * cycloSPORINE (RESTASIS) 0.05 % ophthalmic suspension Instill 1 Drop into both eyes 2 times daily * lactulose (GENERLAC) 10 GM/15ML solution Take 15 mL by mouth 2 times daily * DULoxetine (CYMBALTA) 30 MG capsule Take 30 mg by mouth 2 times daily * omeprazole (PRILOSEC) 40 MG capsule Take 40 mg by mouth daily before breakfast * ascorbic acid (VITAMIN C) 125 MG TABS half tablet Take by mouth once daily * [id number] 3-Phytoster (ANIMI-3/VITAMIN D PO) Social History Tobacco Use Types Packs/Day Years Used Date Smoking Tobacco: Never Assessed Sex and Gender Information Value Date Recorded Sex Assigned at Not on file Gender Identity Not on file Sexual Orientation Not on file Last Filed Vital Signs Vital Sign Reading Time Taken Comments Blood Pressure 118/70 01/20/2020 2:17 PM CDT Pulse 84 01/20/2020 2:17 PM CDT Temperature 37.3 C (99.1 F) 01/20/2020 2:17 PM CDT Respiratory Rate 15 01/20/2020 2:17 PM CDT Oxygen Saturation 97% 01/20/2020 2:17 PM CDT Inhaled Oxygen Concentration - - Weight 70.3 kg (155 lb) 01/20/2020 2:17 PM CDT Height 162.6 cm (5' 4 ) 01/20/2020 2:17 PM CDT Body Mass Index 26.61 01/20/2020 2:17 PM CDT Care Teams Certified Dietary Manager Relationship Specialty Start Date End Date Aurea Plaza MD [address] [place] [address] PCP - General 10/11/22 [place] [id number] [address] Orthopedic Surgery 01/13/17
--- OUTSIDE RECORDS SUMMARY | 2024-09-01 12:50 | XMS_ITS | Clinical Summary ---
Author Organization [facility] Address [address] [place] [address] Care Team Providers Care Code Machine Operator Name Role Phone Rajesh Palmer MD Unavailable [phone] Aurea Plaza MD Primary Care Provider [phone] Source Comments [facility],non-owned Affiliates and Associated Physician Practices is amultiple site organization consisting of ambulatory clinics and hospital sitesin [place], [place], [place] and [place]. This disclosure is being madepursuant to the Care Everywhere program and may not contain all information available regarding this patient. Last updated 18.[facility] Allergies Active Allergy Reactions Criticality Noted Date Comments Adhesive Sensitivity 01/13/2017 Rash Codeine 01/13/2017 Sleeplessness and itching Lidocaine 01/13/2017 Extreme shakes Medications * Be aware that medications may not be up to date on this document. Alwaysverify current medications with the patient. Medication Sig Dispensed Refills Start Date End Date Status methotrexate 2.5 MG tabletIndications:10 tab Take 2.5 mg by mouth every 7 days Reasons: 10 tab Active folic acid (FOLVITE) 1 MG tablet Take 1 mg by mouth once daily Active Glucosamine-Chondroit in-Vit D3 7087-8850-070 MG-MG-UNIT Take 2 Tabs by mouth once daily Active meloxicam (MOBIC) 15 MG tablet Take 15 mg by mouth once daily Active Multiple Vitamins-Minerals (CENTRUM SILVER 50+WOMEN) TABS Take 1 Tab by mouth once daily Active cycloSPORINE (RESTASIS) 0.05 % ophthalmic suspension Instill 1 Drop into both eyes 2 times daily Active lactulose (GENERLAC) 10 GM/15ML solution Take 15 mL by mouth 2 times daily Active DULoxetine (CYMBALTA) 30 MG capsule Take 30 mg by mouth 2 times daily Active omeprazole (PRILOSEC) 40 MG capsule Take 40 mg by mouth daily before breakfast Active ascorbic acid (VITAMIN C) 125 MG TABS half tablet Take by mouth once daily Active [id number] 3-Phytoster (ANIMI-3/VITAMIN D PO) Active Social History Tobacco Use Types Packs/Day Years [...] Mass Index 26.61 01/20/2020 2:17 PM CDT Plan of Treatment Health Maintenance Due Date Last Done Comments BONE DENSITY TESTING 1943 DTAP/TDAP/TD VACCINES (1 - Tdap) 1962 PNEUMOCOCCAL VACCINE 50+ (1 of 1 - PCV) 1993 ZOSTER VACCINE (1 of 2) 1993 Respiratory Syncytial Virus (RSV) Vaccine Pt: or over 60 yrs (1 - 1-dose 75+ series) 2018 COVID-19 VACCINE ( - 2023-2 5 season) 2024 INFLUENZA VACCINE (#1) 2024 06/30/2015 DEPRESSION SCREENING 06/19/2024 HEPATITIS B VACCINE Aged Out No longe r eligible based on patient's age to complete this topic HIB VACCINE Aged Out No longer eligi ble based on patient's age to complete this topic HPV VACCINE Aged Out No longer eligi ble based on patient's age to complete this topic MENINGOCOCCAL (Group B) VACC INE SHARED DECISION-MAKING Aged Out No longer eligibl e based on patient's age to complete this topic MENINGOCOCCAL GROUPS A/C/Y/W VACCINE Aged Out No longer eligible b ased on patient's age to complete this topic Care Teams Code Machine Operator Relationship Specialty Start Date End Date Aurea Plaza MD [address] [place] [address] PCP - General 10/11/22 [place] [address] [facility] [address] [address] Orthopedic Surgery 01/13/17
--- OUTSIDE RECORDS SUMMARY | 2024-09-01 12:50 | XMS_ITS | Data Portability ---
Author Organization [employer] I sd, [facility] [employer] Address [address] [facility] [address] [place] [address] Assessment Encounter Date Assessment Date Assessment LastModified by Organization Details LastModified Time 03/18/2024 03/18/2024 60 mins spent on visit w/ pt, chart review, care coordination and counseling The care of this patient was conducted under the direct supervision of William Nava MD Chronic care management / Remote patient monitoring was discussed with patient during visit. Pt wishes to participate in CCM/RPM. Health goals and care plans discussed with patient and optimized based on patient's wishes, current health state, resources available and goals of care. Provider recommendations and extensive counseling given to patient, start to follow on CCM/RPM at this time. CCM program services described to patient. Possible cost sharing explained to patient in context of those with secondary insurances will likely have no out of pocket costs and per CMS guidelines CCM may help avoid costly services in the future by proactively managing patient health, rather than only treating severe or acute disease and illness. Patient confirms at this time is not participiating in CCM/RPM with another provider. Patient understands can stop RPM/CCM services at any time. [email or web address] Not available 03/18/2024 16:46:44 Plan of Treatment Reminders Order Date Submit Date Provider Last Modified By Organization Details Last Modified Time Details Appointments None record ed. Lab None record ed. Referral None record ed. Procedures None record ed. Surgeries None record ed. Imaging None record ed. Medication Orders None record ed. Patient TargetsNo targets recorded. Patient InstructionsNo instructions recorded. Reason for Referral None Reported. Problems Name Problem SNOMED Code Status Onset Date Resolution Date Notes Provider Name and Address Organization Details Recorded Time Bilateral osteoarthr itis of knees 8885113923615 07 Active 2023 CORDELL ROBIN [employer] [address], [place], [address] , [employer] 4 16:44:27 Muscle weakness 96560402 Active 2023 CORDELL ROBIN APRN [address] [place] [address], [place], [place], [address] [place] [address] , [employer] 4 16:44:32 Abnormal gait due to muscle weakness 316586614 Active 2023 CORDELL ROBIN APRN [address] [place] [address], [place], [place], [address] [place] [address] , [employer] 4 16:44:35 Rheumatoid arthritis 07692048 Active 2023 CORDELL ROBIN APRN [address] [place] [address], [place], [address] [place] [address] , [employer] 4 16:44:47 Dizziness and giddiness 739355073 Active 2023 CORDELL ROBIN APRN [address] [place] [address], [place], [address] [place] [address] , [employer] 4 16:47:06 Problem Notes None recorded. Medical Equipment None Reported. Medications Name Sig Start Date Stop Date Status Note LastModified by Organization Details LastModified Time prednisone 10 mg tablet TAPER DIRECTED ORALLY DAILY FOR 15 DAYS active Not Available Not Available No t Available meloxicam 15 mg tablet active Not Available Not Available No t Available prednisone 5 mg tablet active Not Available Not Available No t Available meclizine 12.5 mg tablet active Not Available Not Available No t Available ofloxacin 0.3 % ear drops PLACE [address] DROPS INTO RIGHT EAR EVERY DAY FOR 7 DAYS active Not Available Not Available No t Available methotrexate sodium 2.5 mg tablet active Not Available Not Available Not Available cephalexin 500 mg capsule TAKE 1 CAPSULE BY MOUTH EVERY 6 HOURS active Not Available Not Available No t Available cyclosporine 0.05 % eye drops in a dropperette INSTILL 1 DROP INTO BOTH EYES TWICE A DAY active Not Available Not Available No t Available duloxetine 60 mg capsule,delaye d release active Not Available Not Available No t Available lactulose 10 gram/15 mL oral solution TAKE 15 ML BY MOUTH EVERY DAY active Not Available Not Available No t Available Otezla 30 mg tablet 1 TABLET BY MOUTH TWICE DAILY active Not Available Not Available No t Available Vitals Date Recorded Body height Body mass index (BMI) Body weight Provider Name and Address Organization Details Last Updated DateTime 03/18/2024 162.56 cm 23.5 kg/m2 98835.15 g CORDELL ROBIN [facility] [address] [place] [address] [address], [place], [address], [place] [facility] [employer] 03/18/2024 15:13:58 Social History None recorded. Functional Status None recorded. Mental Status None recorded. Family History Nothing Reported. Medical History No medical history recorded. Gynecological HistoryNo gynecological history recorded. Obstetrics History GPAL:G 0 P 0 0 0 0 Past Encounters Encounter ID Performer Location Encounter Start Date Encounter Closed Date Diagnosis/Indication Diagnosis SNOMED-CT Code Diagnosis ICD10 Code Diagnosis Note [id number] CORDELL ROBIN [employer] [facility] [place] [address] [facility] [address] [facility] [place] [address] 03/18/2024 16:52:36 03/18/2024 16:54:36 Bilateral osteoarthritis of knees 5539388577 61604 M17.0 -Continue with current medical management and medication s.-Continu e with SN/PT/OT to help with pain, exercise and gaining strength. Muscle weakness 24480097 M62.81 --Continue to work with HH SN/PT/OT to increase strength and balance. Abnormal g ait due to muscle weakness 469581948 M62.81 -Continue to work with HH SN/PT/OT to increase strength and balance. Rheumatoid arthritis 698 75519 M06.9 -Continue with current medical management and medication s.-Continu e with SN/PT/OT to help with pain, exercise and to gain strength Dizziness and giddiness 040388198 R42 -Continue to work with HH SN/PT/OT to help with balance. History of total knee arthroplasty 5737742680 105 Z96.659 -Continue with current medical management .-Continue medication -Continue with HH SN/PT/OT to care for after surgical procedure. Health Concerns Section Related Observation LastModified by Organization Detai ls LastModified Time None Recorded Concern Status LastModified by Organization Details LastModified Time None Recorded Advance Directives Directive None Recorded Payers Encounter Date Sequence Insurance Name Policy Number Policy Hernandez Covered Member ID Hernandez Member ID Guarantor Name 03/18/2024 1 [employer] (MEDICARE REPLACEMENT/ ADVANTAGE - HMO) Alissa Hutchinson [id number] Alissa Petersonaniel Notes Date Note Type Note Provider Name and Address Organization Details Recorded Time 03/18/2024 text/html 79 year old [employer]. Pt had video and audio visit due to being home bound secondary to a combination of medical conditions and socioeconomic limitations. Pt has expressed clear desire to be seen at home and has the option at any time to be seen in the clinic instead. - Verbal informed consent was obtained prior to the visit from patient and/or caregiver. Hx: She was admitted with primary osteoarthritis. She is getting HH SN/PT/OT. She is ambulating with a walker. She can do all of her ADL's There are no changes to her meds.She went to rehab before coming home.Would benefit from therapy to gain strength and balance and to review safety precautions. No acute findings reported today. CORDELL ROBIN [employer] [address] [place] [address], [address], [employer] 04/02/2024 08:41:52 OBGyn Episode No OBEpisode recorded.
--- OUTSIDE RECORDS SUMMARY | 2024-09-01 12:50 | XMS_ITS | Data Portability ---
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 Plan of Treatment Reminders Order Date Submit Date Provider Last Modified By Organization Details Last Modified Time Details Appointments None recorded. Lab vitamin D, 25-hydroxy, total, serum 2022 023 [email or web address] Not available 3 08:23:46 BMP, serum or plasma 2022 023 1 Not available 3 08:18:31 hepatic function panel, serum 2022 023 Not available 3 08:47:16 ESR (erythrocyt e sedimentati on rate), blood 2022 023 [email or web address] Not available 3 08:47:17 TSH, serum or plasma 2022 023 ESDRAS Not available 3 08:23:30 vitamin B12, serum 2022 023 Not available 3 08:47:16 folate, serum 2022 023 [email or web address] Not available 3 08:47:16 ferritin, serum or plasma 2022 023 [email or web address] Not available 3 08:47:16 iron + total iron-bindin g capacity (TIBC), serum 2022 023 [email or web address] Not available 3 08:23:15 CBC w/ auto diff 2022 023 [email or web address] Not available 3 09:22:54 Referral physical therapist referral - Please call pt to schedule 2024 025 [email or web address] [facility] Physical, Occupational [facility] Medicine [facility], [address] [place], [address], 5 11:05:[address] referral 2024 025 [email or web address] Carleen Chang MD (Dermatology) , [address], [facility], [place], [address], 5 10:57:07 neurologist referral - Please call pt to schedule appt. Thank you 2022 023 [email or web address] Roberto MD, 3 [facility], [address], [place], [address], 3 12:55:17 Procedures None recorded. Surgeries None recorded. Imaging XR, hip, unilateral, 2 or 3 view - Please XR left hip 2024 025 [facility], [address], [place], [address], 5 09:33:27 DEXA [address] (Admitting), [address], [place], [address], 3 15:48:25 Medication Orders hydrocodone 5 mg-acetamin ophen 325 mg tablet 2024 025 [facility]/Pharmacy #[id number], [address], [place], [address], 5 15:39:19 cephalexin 500 mg capsule 2023 024 [facility]/Pharmacy #[id number], [address], [place], [address], 5 15:02:37 methotrexat e sodium 2.5 mg tablet 2023 024 [id number], [address], [place], [address], 4 14:47:45 duloxetine 60 mg capsule,del ayed release 2023 024 [id number], [address] [place], [address], 4 14:47:48 lidocaine 3 %-hydrocort isone 0.5 % rectal cream [email or web address] [place], [place] [address]Pharmacy #[id number], [address], [place], [address], 4 14:18:10 mupirocin 2 % topical ointment 2022 [email or web address] [place], [place] [address]Pharmacy #[id number], [address] [place], [address], 4 14:16:10 Patient TargetsNo targets recorded. Patient InstructionsNo instructions recorded. Reason for Referral Neurologist Referral for Hao mor Please call pt to schedule appt. Thank you Referring Physician: El Plaza, Family Medicine, Encounter Date: 08/30/2022 Physical Therapist Referral for Pain of left hip joint Please call pt to schedule Referring Physician: Lena Sevilla [facility], Encounter Date: 07/02/2024 Thresher Broomcorn Referral for A ctinic keratosis Referring Physician: Lena Sevilla Family [facility], Encounter Date: 07/02/2024 Results Created Date Observation Date Name Description Value Unit Range Abnormal Flag Note LastModifiedBy Organization Detail LastModifiedTime 09/21/1909/01/2022 DEXA No observ ation record ed. [email or web address] [address], [place], [address], 11/22/2022 10:45:09 09/14/19 24 09/13/2023 XR, knee No observ ation record ed. [address] [facility], [place], [address], 11/03/2023 19:49:35 09/27/19 24 09/27/2023 CT, lower extre mity, w/o contr ast No observ ation record ed. [address] [address], [place], [address], 11/03/2023 19:49:55 11/23/19 24 11/23/2023 XR, chest , 2 view No observ ation record ed. [address] [address], [place], [address], 12/12/2023 08:24:29 11/28/19 24 11/27/2023 US, renal No observ ation record ed. [address] [address], [place], [address], 12/12/2023 08:24:52 12/25/19 24 12/25/2023 CT, cervi salvador spine , w/o contr ast No observ ation record ed. [address], [place], [address], 01/17/2024 17:09:59 12/25/19 24 12/25/2023 CT, lumba r spine , w/o contr ast No observ ation record ed. [address], [place], [address], 01/17/2024 17:10:24 02/15/20 24 02/15/2024 XR, knee No observ ation record ed. [email or web address] [facility] [address], [place], [address], 02/28/2024 15:19:09 07/13/19 25 07/12/2024 XR, hip, unila teral , 2 or 3 view No observ ation record ed. [facility] [address], [place], [address], 07/16/2024 10:17:20 Result Notes None recorded. Problems Name Problem SNOMED Code Status Onset Date Resolution Date Notes Provider Name and Address Organization Details Recorded Time Osteoarthr itis 478634608 Active Not Available [facility] 21:17:37 Hematochez ia 518769066 Active 2020 Not Available [facility] 21:17:37 Psoriasis 4595861 Active 2020 Not Available [facility] 21:17:37 Vitamin D deficiency 32661834 Active 2022 El Plaza MD [address], [address], [place], [address] , [facility] [employer] 3 17:27:42 Iron deficiency anemia 45120236 Active 2022 El Plaza MD [address], [address], [place], [address] , [facility] 17:27:49 Cobalamin deficiency 611769867 Active 2022 El Plaza MD [address], [address], [place], [address] , [facility] 17:27:57 Fatigue 32059419 Active 2022 El Plaza MD [address], [address], [place], [address] , [facility] 17:28:42 Bone pain 49105450 Active 2022 El Plaza MD [address], [address], [place], [address] , [place] [facility] 3 17:31:00 Tremor 60596158 Active 2022 El Plaza MD [address], [address], [place], [address] , [place] [facility] 3 17:33:55 Deviated nasal septum 216297281 Active 2022 Jamal Pak MD [address], [address], [place], [address] , [place] [facility] 3 15:46:22 Folliculit is 22626181 Active 2022 Jamal Pak MD [address], [address], [place], [address] , [place] [facility] 3 15:46:31 Hemorrhoid s 93014429 Active 2022 El Plaza MD [address], [address], [place], [address] , [place] [facility] 3 15:51:32 Psoriatic arthritis 526776447 Active 2022 El Plaza MD [address], [address], [place], [address] , [place] [facility] 3 17:55:14 Pain of bilateral knee joints 9915864796694 04 Active 2023 El Plaza MD [address], [address], [place], [address] , [place] [facility] 4 16:32:35 Serum creatinine above reference range 783898452 Active 2023 El Plaza MD [address], [address], [place], [address] , [place] [facility] 4 16:55:11 Cellulitis of lower limb 061793673 Active 2023 VENITA Lancaster [address], [address], [place], [address] , [facility] 4 14:45:48 Pain of left hip joint 8099487561641 00 Active 2024 DANIELA Lagos [address], [address], [place], [address] , [facility] 5 15:26:49 Actinic keratosis 902223865 Active 2024 DANIELA Lagos [address], [address], [place], [address] , [facility] 5 15:35:46 Lumbar spondylosi s 397772454 Active 2024 VENITA Lancaster [address], [address], [place], [address] , [facility] 5 10:24:12 Problem Notes None recorded. Procedures Surgical History Date Name Laterality Status Provider Name and Address Organization Details Recorded Time 09/22/19 23 hemorrhoidectomy completed Yolis Sanabria [facility] 10/04/2022 11:18:19 Imaging Results Imaging Date Name Status LastModified by Organiz ation Details LastModified Time 09/01/2022 DEXA completed [email or web address] [facility] [address], [place], [address], 11/22/2022 10:45:09 09/13/2023 XR, knee completed [address], [address], 11/03/2023 19:49:35 09/27/2023 CT, lower extremity, w/o contrast completed [address], [address], 11/03/2023 19:49:55 11/23/2023 XR, chest, 2 view completed [address], [address], 12/12/2023 08:24:29 11/27/2023 US, renal completed [address] [place] [address], [address], 12/12/2023 08:24:52 12/25/2023 CT, cervical spine, w/o contrast completed [address], [address], 01/17/2024 17:09:59 12/25/2023 CT, lumbar spine, w/o contrast completed [address] [place] [address], [address], 01/17/2024 17:10:24 02/15/2024 XR, knee completed [email or web address] [address] [place] [address], [address], 02/28/2024 15:19:09 07/12/2024 XR, hip, unilateral, 2 or 3 view completed [address], [address], 07/16/2024 10:17:20 Procedure Notes None recorded. Medical Equipment None Reported. Allergies Allergen ID Allergen Name Allergen Category Reaction Reaction Severity Criticality Documentation Date Start Date Code Code System Note Provider Name and Address Organization Details Recorded Time 72640 lidocaine medicatio n other Not available Not available 08/17/2022 6387 RxNorm Extre me shaki ng Not Available [facility] 21:19:03 97417 codeine medicatio n Not available Not available Not available 08/17/2022 2670 RxNorm Itchi ng, sleep lessn ess Not Available [facility] 21:19:03 56489 adhesive tape environme nt,medica tion rash Not available Not available 08/17/2022 17846 UNK Need paper tape Not Available [facility] 21:19:03 Medications Name Sig Start Date Stop Date Status Note LastModified by Organization Details LastModified Time cyclobenz aprine 10 mg tablet Take 1 tablet 3 times a day by oral route as needed for 10 days. 04/29 completed Not Available Not Available Not Available prednison e 10 mg tablet 04/29 completed Not Available Not Available Not Available doxycycli ne hyclate 100 mg capsule 08/26 completed Not Available Not Available Not Available ketoconaz ole 2 % shampoo 04/29 completed Not Available Not Available Not Available clindamyc in HCl 300 mg capsule 05/28 completed Not Available Not Available Not Available Lidocaine Viscous 2 % mucosal solution RINSE MOUTH WITH 1 TEASPOON EVERY 4-6 HOURS NEEDED. 10/25 completed Not Available Not Available Not Available ofloxacin 0.3 % eye drops INSTILL 1 DROP INTO AFFECTED EYE THREE TIMES A DAY TO BEGIN USE 2 DAYS BEFORE SURGERY 06/28 completed Not Available Not Available Not Available valacyclo vir 1 gram tablet Take 2 tablets every 12 hours by oral route for 1 day. active Not Available Not Available No t Available hydrocodo ne 5 mg-acetam inophen 325 mg tablet TAKE 1 TABLET BY MOUTH EVERY 6 TO 8 HOURS BY MOUTH NEEDED FOR 10 DAYS active Not Available Not Available No t Available meloxicam 15 mg tablet TAKE 1 TABLET EVERY DAY NEEDED FOR PAIN 04/29 completed Not Available Not Available Not Available sucralfat e 1 gram tablet TAKE 1 TABLET BY MOUTH AT BEDTIME ON AN EMPTY STOMACH 12/23 completed Not Available Not Available Not Available prednison e 20 mg tablet TAKE 2 TABLETS BY MOUTH EVERY MORNING WITH FOOD FOR 5 DAYS 08/30 completed Not Available Not Available Not Available meclizine 12.5 mg tablet 04/29 completed Not Available Not Available Not Available valacyclo vir 500 mg tablet Take 1 tablet twice a day by oral route for 7 days. 08/30 completed Not Available Not Available Not Available omeprazol e 40 mg capsule,d elayed release TAKE 1 CAPSULE BY MOUTH EVERY DAY 12/23 completed Not Available Not Available Not Available tramadol 50 mg tablet 1 po q6 hours prn 04/29 completed Not Available Not Available Not Available ketorolac 0.5 % eye drops INSTILL 1 DROP INTO THE OPERATIV E EYE 3 TIMES DAILY BEGINNIN G 2 DAYS BEFORE SURGERY 06/28 completed Not Available Not Available Not Available prednison e 10 mg tablets in a dose pack Take 1 tab by mouth, 3 times a day for 3 daysTake 1 tab by mouth 2 times a day for 2 daysTake 1 tab by mouth once a day for 1 day 08/19 completed Not Available Not Available Not Available ofloxacin 0.3 % ear drops 04/29 completed Not Available Not Available Not Available amoxicill in 875 mg tablet Take 1 tablet every 12 hours by oral route for 10 days. 07/28 completed Not Available Not Available Not Available famotidin e 20 mg tablet TAKE 1 TABLET BY MOUTH EVERYDAY AT BEDTIME 04/29 completed Not Available Not Available Not Available prednisol one acetate 1 % eye drops,mauricio pension INSTILL 1 DROP INTO BOTH EYES TWICE DAILY 04/29 completed Not Available Not Available Not Available methocarb case 750 mg tablet TAKE 1 TABLET BY MOUTH 3 TIMES A DAY 03/01 completed Not Available Not Available Not Available methotrex ate sodium 2.5 mg tablet TAKE 10 TABLETS EVERY WEEK BY MOUTH FOR 84 DAYS. active Not Available Not Available No t Available Kenalog 10 mg/mL suspensio n for injection In office injectio n administ ered by the provider 08/19 completed ND: [id number] 4-20 Not Available Not Available Not Available benzonata te 100 mg capsule 08/26 completed Not Available Not Available Not Available prednison e 2.5 mg tablet PLEASE SEE ATTACHED FOR DETAILED DIRECTIO NS 03/01 completed Not Available Not Available Not Available cephalexi n 500 mg capsule TAKE 1 CAPSULE BY MOUTH TWICE A DAY FOR 7 DAYS 07/02 completed Not Available Not Available Not Available erythromy carmen 5 mg/gram (0.5 %) eye ointment APPLY A STRIP TO THE RIGHT EYE 4 TIMES DAILY X7 DAYS 04/29 completed Not Available Not Available Not Available ranitidin e 150 mg tablet 08/26 completed Not Available Not Available Not Available docusate sodium 100 mg capsule Take 1 capsule( s) every day by oral route. 04/29 completed Not Available Not Available Not Available magnesium citrate oral solution TAKE 150 ML BY MOUTH ONCE 03/01 completed Not Available Not Available Not Available cephalexi n 500 mg tablet Take 1 tablet twice a day by oral route for 7 days. 08/19 completed Not Available Not Available Not Available folic acid 1 mg tablet Take 1 tablet every day by oral route. 04/29 completed Not Available Not Available Not Available hydroxyzi ne HCl 25 mg tablet 1 po q8 hours prn itching 06/28 completed Not Available Not Available Not Available mupirocin 2 % topical ointment APPLY A SMALL AMOUNT TO THE AFFECTED AREA 3 TIMES DAILY FOR 5 DAYS 04/29 completed Not Available Not Available Not Available polyethyl dayanna glycol 3350 17 gram/dose oral powder MIX AND DRINK THE CONTENTS OF 1 CAPFUL IN LIQUID DAILY NEEDED FOR CONSTIPA TION 12/23 completed Not Available Not Available Not Available cefdinir 300 mg capsule 08/26 completed Not Available Not Available Not Available doxycycli ne hyclate 100 mg tablet Take 1 tablet twice a day by oral route for 7 days. active Not Available Not Available No t Available Restasis 0.05 % eye drops in a dropperet te INSTILL 1 DROP INTO BOTH EYES TWICE A DAY active Not Available Not Available No t Available lidocaine 3 %-hydroco rtisone 0.5 % rectal cream apply to affected area bid prn 04/29 completed Not Available Not Available Not Available ORTHOVISC 30 mg/2 mL intra-art icular syringe Injectio ns given in the office by the doctor 12/23 completed [facility]: [id number] 001 Not Available Not Available Not Available nitrofura ntoin monohydra te/macroc rystals 100 mg capsule Take 1 capsule every 12 hours by oral route for 10 days. active Not Available Not Available No t Available duloxetin e 30 mg capsule,d elayed release 06/28 completed Not Available Not Available Not Available duloxetin e 60 mg capsule,d elayed release TAKE 1 CAPSULE BY MOUTH EVERY DAY 2024 active Not Available Not Available Not Avai lable lactulose 10 gram/15 mL oral solution TAKE 15 ML EVERY DAY 04/29 completed Not Available Not Available Not Available chlorhexi dine gluconate 0.12 % mouthwash Place 15 mL twice a day by mucous membrane route as needed. 04/29 completed Not Available Not Available Not Available Vitamin C 1 tab po 2022 active Not Available Not Available Not Avai lable lactulose 10 gm/15-30 a day as needed 08/26 completed Not Available Not Available Not Available folic acid 2 tabs qd 04/29 completed Not Available Not Available Not Available amlodipin e 5 mg-benaze pril 40 mg capsule 12/23 completed Not Available Not Available Not Available lidocaine (PF) 10 mg/mL (1 %) injection solution In office injectio n administ ered by the provider 08/19 completed [facility]: 0409-427 6-17 Not Available Not Available Not Available Otezla 30 mg tablet TK 1 TABLET BY MOUTH TWICE DAILY 2023 active Not Available Not Available Not Avai lable magnesium 400 mg (as magnesium oxide) tablet Take 1 tablet every day by oral route in the evening. 04/29 completed Not Available Not Available Not Available Vitals Date Recorded Body height Body mass index (BMI) Body weight Body temperature Heart rate Oxygen saturation Oxygen saturation in Arterial blood by Pulse oximetry Systolic blood pressure Diastolic blood pressure Provider Name and Address Organization Details Last Updated DateTime 3 162.56 cm 25.4 kg/m2 38337.6 7 g 98.6 [degF] 76 /min 99 % 99 % 128 mm[Hg] 84 mm[Hg] Ramon Crowe [facility] [employer] [facility] 3 17:16:44 Date Recorded Body height Body mass index (BMI) Body weight Body temperature Provider Name and Address Organization Details Last Updated DateTime 09/08/2022 162.56 cm 25.1 kg/m2 15293.49 g 97.6 [degF] El Patino [facility] [employer] [facility] [employer] [facility] 09/08/2022 15:30:10 Date Recorded Body height Body mass index (BMI) Body weight Body temperature Heart rate Oxygen saturation Oxygen saturation in Arterial blood by Pulse oximetry Systolic blood pressure Diastolic blood pressure Provider Name and Address Organization Details Last Updated DateTime 3 162.56 cm 25.1 kg/m2 39677.4 9 g 97.9 [degF] 84 /min 96 % 96 % 116 mm[Hg] 80 mm[Hg] Dariana Fernandes [place] [facility] [employer] 3 15:41:23 Date Recorded Body weight Body temperature Heart rate Oxygen saturation Oxygen saturation in Arterial blood by Pulse oximetry Systolic blood pressure Diastolic blood pressure Provider Name and Address Organization Details Last Updated DateTime 4 39261.6 g 97.5 [degF] 64 /min 94 % 94 % 122 mm[Hg] 88 mm[Hg] Bubba Tang RN [facility] 4 14:15:46 Date Recorded Body weight Body mass index (BMI) Body height Body temperature Pain severity - 0-10 verbal numeric rating [Score] - Reported Respiratory rate Heart rate Oxygen saturation Oxygen saturation in Arterial blood by Pulse oximetry Systolic blood pressure Diastolic blood pressure Provider Name and Address Organization Details Last Updated DateTime 5 66472.5 5 g 23.8 kg/m2 162.56 cm 97.3 [degF] 8 24 /min 79 /min 97 % 97 % 150 mm[Hg] 88 mm[Hg] Gretchen Zamorano RN [facility] 5 15:07:15 Social History Question Answer Notes LastModified by Organization Details LastModified Time Tobacco Smoking Status Never Smoker Not Available [facility] 08/17/2022 21:17:11 What Is Your Level Of Alcohol Consumption? None [id number] Information not available 08/17/2022 Are You Blind Or Do You Have Difficulty Seeing? No Information not available 07/02/2024 What Is Your Level Of Caffeine Consumption? None [id number] Information not available 08/17/2022 In The 14 Days Before Symptom Onset, Have You Had Close Contact With A Laboratory-confi rmed COVID-19 While That Case Was Ill? No [id number] Information not available 08/17/2022 In The 14 Days Before Symptom Onset, Have You Had Close Contact With A Person Who Is Under Investigation For COVID-19 While That Person Was Ill? No [id number].030 [id number] Information not available 08/17/2022 Are You Currently Employed? No Information not available 07/02/2024 Are You Deaf Or Do You Have Serious Difficulty Hearing? Yes Hearing Aids That Do Not Work Information not available 07/02/2024 What Type Of Diet Are You Following? REGULAR [id number].[id number] [id number] Information not available 08/17/2022 Which Illicit Or Recreational Drugs Have You Used? None [id number] Information not available 08/17/2022 Do You Or Have You Ever Used E-cigarettes Or Vape? Never Used Electronic Cigarettes [id number] [id number] Information not available 08/17/2022 What Is Your Occupation? Retired [id number].0301 [id number] Information not available 08/17/2022 Have There Been Any Changes To Your Family Or Social Situation? No Information not available 07/02/2024 Where Do You Live? SingleLevelHouse Information not available 07/02/2024 What Was The Date Of Your Most Recent Tobacco Screening? 12/23/2020 [id number] Information not available 08/17/2022 Do You Have Any Pets? No Information not available 07/02/2024 Do You Use Your Seat Belt Or Car Seat Routinely? Yes Information not available 07/02/2024 Do You Have Smoke And Carbon Monoxide Detectors In Your Home? Yes Information not available 07/02/2024 Are You Passively Exposed To Smoke? No Information not available 07/02/2024 Do You Or Have You Ever Used Smokeless Tobacco? Never Used Smokeless Tobacco MIGRATION.030 [id number] Information not available 08/17/2022 Are There Any Smokers In Your House? No Information not available 07/02/2024 Do You Participate In Social Media? No Information not available 07/02/2024 Do You Feel Stressed (tense, Restless, Nervous, Or Anxious, Or Unable To Sleep At Night)? [id number] Information not available 07/02/2024 Have You Recently Traveled Abroad? No Information not available 07/02/2024 Sex: Unknown Functional Status Question Answer Note LastModified by Organizat ion Details LastModified Time Do you have difficulty walking or climbing stairs? Yes walks with three wheeled walker Information not available 07/02/2024 Do you have transportation difficulties? Yes states she can drive Information not available 07/02/2024 Are you able to walk? YESLIMIT Information not available 07/02/2024 Do you have difficulty doing errands alone? No doesn't do errands Information not available 07/02/2024 Are you able to care for yourself? Yes Information n ot available 07/02/2024 Do you have difficulty dressing or bathing? No Information not available 07/02/2024 What is your exercise level? None [id number] Information not available 08/17/2022 Mental Status Question Answer Note LastModified by Organization D etails LastModified Time Do you have difficulty concentrating, remembering or making decisions? No Information no t available 07/02/2024 Family History Relationship Description Onset Age of this Age Resolved Age Notes LastModified by Organization Details LastModified Time Mother Hypertensive disorder [id number] Not available 08/17/2022 21:17:13 Mother Diabetes mellitus [id number] Not available 08/17/2022 21:17:13 Medical History Condition Response ARTHRITIS Y SKIN PROBLEMS Y ANXIETY DISORDER Y Gynecological History Statement/Question Response Abnormal Pap N Sexually Active? N Dislike of Light during Menstrual Headac he N Menses Monthly N STIs/STDs N Current Control Method Menopause Most Recent Mammogram Breast Problems no Discharge no Obstetrics History GPAL:G 0 P 0 0 0 0 Past Encounters Encounter ID Performer Location Encounter Start Date Encounter Closed Date Diagnosis/Indication Diagnosis SNOMED-CT Code Diagnosis ICD10 Code Diagnosis Note [id number] [facility] [address] [place] [address] 12/17/2020 00:00:00 12/17/2020 11:47:16 [id number] [facility] [place] [address] [facility] [address] [place] [address] 12/23/2020 00:00:00 12/23/2020 13:14:58 [id number] [facility] [address] [place] [address] 12/30/2020 00:00:00 01/15/2021 07:54:56 [id number] [facility] [place] [address] [place] [address] 01/14/2021 00:00:00 01/14/2021 15:34:07 [id number] [facility] [place] [address] [facility] [facility] [address] [place] [address] 02/04/2021 00:00:00 02/04/2021 14:46:10 [id number] [facility] [place] [address] [place] [address] 03/15/2021 00:00:00 03/15/2021 17:07:40 [id number] [facility] [place] [address] [place] [address] 08/19/2021 00:00:00 09/15/2021 18:51:12 [id number] [facility] [place] [address] [place] [address] 10/25/2021 00:00:00 10/25/2021 13:24:38 [id number] [facility] [place] [address] [place] [address] 11/22/2021 00:00:00 12/15/2021 10:56:57 [id number] [facility] [place] [address] [place] [address] 12/27/2021 00:00:00 01/14/2022 12:59:25 [id number] [facility] [place] [address] [place] [address] 01/17/2022 00:00:00 01/17/2022 14:48:08 [id number] [facility] [place] [address] [place] [address] 03/01/2022 00:00:00 03/01/2022 14:58:10 [id number] [facility] [place] [address] [place] [address] 06/28/2022 00:00:00 06/28/2022 09:44:40 [id number] [facility] Primary Care [facility] [address] [facility] [address] [place] [address] 07/28/2022 00:00:00 07/28/2022 11:45:26 [id number] El Plaza MD [facility] Primary Care [facility] [address] [facility] [address] [place] [address] 08/30/2022 17:08:33 08/30/2022 17:43:33 Vitamin D deficiency [id number] E55.9 Iron defic iency anemia 65923429 D50.9 Cobalamin deficiency 190 805101 E53.8 Psoriasis 8990625 L40.9 Z79.899 Fatigue 69433740 R53.83 Bone pain 06193781 M89.8 X9 N95.1 Tremor 15507875 R25.1 R27.8 ? parkinsoni sm Menopausal and postmenopausal disorders 470163776 N95.9 [id number] Jamal Pak MD [facility] E[place] [address] [place] [address] 09/08/2022 15:20:39 09/08/2022 15:52:07 Deviated nasal septum 789528012 J34.2 Folliculitis 04292648 L7 3.9 [id number] El Plaza MD [facility] Primary Care [place] [address] [place] [address] 10/05/2022 15:19:59 10/05/2022 15:57:58 Hemorrhoids 10488462 K64.9 [id number] JOSE LancasterP-C [facility] Primary Care [place] [address] [place] [address] 04/29/2024 14:02:13 04/29/2024 15:33:01 Psoriasis 2402192 L40.9 Otezla paperwork for the upcoming year filled out and handed back to patient. Renewal of prescription [id number] Z76.0 Psoriatic arthritis 1563 72079 L40.50 Cellulitis of lower limb 231022681 L03.119 Will treat as listed below, discussed antibiotic therapy with patient. Patient aware to take medication with food and to drink plenty of water while taking this medication .Patient instructed to contact surgeon today regarding symptoms and treatment of cellulitis . Osteoarthritis 540606550 M19.90 Not well controlled , per patient.Di scussed pain management referral with patient, patient refuses at this time. [id number] DANIELA Lagos [facility] [address] [address] 07/02/2024 14:44:47 07/03/2024 10:37:40 Pain of left hip joint [id number] 79810 M25.552 Actinic keratosis 439234 007 L57.0 Right breast, 7 o'clock Health Concerns Section Related Observation LastModified by Organization Detai ls LastModified Time None Recorded Concern Status LastModified by Organization Details LastModified Time None Recorded Advance Directives Directive None Recorded Payers Encounter Date Sequence Insurance Name Policy Number Policy Hernandez Covered Member ID Hernandez Member ID Guarantor Name 08/30/2022 1 [employer] - GOLD PLUS (MEDICARE REPLACEMENT HMO) Alissa Hutchinson [id number] Alissa Hutchinson 09/08/2022 1 [employer] - G[employer] PLUS (MEDICARE REPLACEMENT HMO) Alissa Hutchinson [id number] Alissa Hutchinson 10/05/2022 1 [employer] - GOLD PLUS (MEDICARE REPLACEMENT HMO) Alissa Hutchinson [id number] Alissa Hutchinson 04/29/2024 1 [employer] - GOLD PLUS (MEDICARE REPLACEMENT HMO) Alissa Petersonaniel [id number] Alissa Hutchinson 07/02/2024 1 [employer] - GOLD PLUS (MEDICARE REPLACEMENT HMO) Alissa Petersonaniel [id number] Alissa Hutchinson Notes Date Note Type Note Provider Name and Address Organization Details Recorded Time 08/30/2022 text/html taking otezla an d is tapering down off methotrexate (down to 2 tabs per week this week). No outbreaks. She is not feeling well overall, she is shaky-somedays so bad she just goes back to bed. She is very upset about this, she feels something is going on with her body. she has dark streaks in her nails her bones are painful all over her body. she is painful to the touch-feels like it is bone pain not muscular going to have hemorroids removed with general surgeon Dr. Martinez on September 21 El Plaza MD [address] [address], [place], [address], [facility] [employer] [facility] [employer] [facility] 09/16/2022 11:05:22 09/08/2022 text/html this patient reports that her nose runs and that she has bleeding and left-sided nasal obstruction this has been going on for years but she did fall 2 months ago and landed on her face. She has been using Vaseline but no kruz-scb-zxpbhcb medications she also reports that her voice changes some time to time that she has occasional throat pain as well. She also reports that she has occasional right ear pain which lasts for brief periods. Jamal Pak MD [address] [address], [place], [address], [employer] [facility] [employer] [facility] 09/08/2022 15:47:06 10/05/2022 text/html currently on ote zla and is having some sores on face, she blames it on stress regarding surgery had hemorrhoid surgery on 09/22, still bleeding since then, saw Dr. Martinez on Monday in f/u, was told it was healing. She has pain with bowel movements and has f/u with Dr. Martinez in 2 weeks. El Plaza MD [address] [facility] [address], [place], [address], [employer] [facility] [employer] [facility] 10/14/2022 15:28:16 04/29/2024 text/html Patient is a 79 year old female that presents to the office for follow-up and to re-establish care since Dr. Plaza left the practice. Patient had left knee replacement on 02/15/24, had follow-up with surgeon on 03/08/24 and is scheduled for a second follow up in May. Patient reports lateral knee numbness and irritation/warmth to the incision. Patient reports these are new symptoms since her initial follow up. Patient denies any treatment of symptoms. Patient reports increased pain to right knee, knows she needs a replacement but has to wait until her left knee has been healed for at least 4 months.Patient reports her pain in her right knee and back are progressively getting worse due to arthritis. Patient has Oxycodone left from her knee surgery which she sometimes takes at night, otherwise only treats pain with Tylenol which provides minimal relief. Patient reports psoriasis is fairly well controlled on her current dose of Otezla. This medication is filled through a savings program, paperwork needs to be updated for the upcoming year. Patient reports issues with sleep, mostly due to pain and having to go to the bathroom. Patient reports she gets about 2 hours of sleep at one time and then is up. Patient has difficulty getting in and out of bed due to bilateral knee and back pain. Patient denies chest pain and shortness of breath. DANIELA Lancaster-Laura [address], [place], [address], [employer] 04/29/2024 20:58:40 07/02/2024 text/html Alissa Hutchinson i s an 79 year old female patient here today for pain. She states she has excruciating stabbing pains in her left hip. It will cause her to double over.She does have some oxycodone from a knee surgery on 02/15/24, but finds this keeps her awake. She has concerns with a brown spot on her right breast DANIELA Lagos [address], [place], [address], [employer] 07/02/2024 16:56:05 OBGyn Episode No OBEpisode recorded.
--- OUTSIDE RECORDS SUMMARY | 2024-09-01 12:50 | XMS_ITS | CONTINUITY OF CARE DOCUMENT ---
Author Name cristina evans Address Unknown Organization [facility] Address [address] [place] [address] [address] [place] [address] Phone [phone] Care Team Providers Care Wool Puller Name Role Phone Roel Landa MD Unavailable SYDNEY MARTINO MD Unavailable INSURANCE PROVIDERS Payer name Policy type / Coverage type [place] red republican ID [facility] [employer] insurance Spotsetter 9 [id number] [place] MEDIC[employer] Medicare [id number]
--- OUTSIDE RECORDS SUMMARY | 2024-09-01 12:50 | XMS_ITS | Referral Summary ---
Author Organization [facility] Address [address] [place] [address] Care Team Providers Care Supervisor Heat Treating Name Role Phone Aurea Plaza MD Primary Care Provider + Allergies Active Allergy Reactions Criticality Noted Date Comments Adhesive Rash Medium Codeine Itching,Other (See comments) Low 015 INSOMNIA Lidocaine Other (See comments) Low 01/05/2018 EXTREME SHAKING Medications folic acid (FOLVITE) 1 mg tablet take 1 tablet daily 5 Active gluc rice/chondro rice A/vit C/Mn (GLUCOSAMINE-CH ONDROIT-VIT C-MN) 371-926-50-5 mg tablet daily. 5 Active multivitamin tabletIndicatio ns:Vitamin Deficiency Prevention daily. 5 Active cycloSPORINE (RESTASIS) 0.05 % ophthalmic emulsion Active methotrexate 2.5 mg tablet TAKE 10 TABLETS WEEKLY. 120 tablet 3 8 Active meloxicam (MOBIC) 15 mg tablet TAKE 1 TABLET DAILY WITH FOOD 90 tablet 3 8 Active benzonatate (TESSALON) 100 mg capsuleIndicati ons:Cough Take 1 capsule (100 mg total) by mouth 3 (three) times a day as needed for cough. 20 capsule 9 Active Additional Information Patient not taking.Reported on 02/19/2019 cefdinir (OMNICEF) 300 mg capsule Take 1 capsule (300 mg total) by mouth 2 (two) times a day. 14 capsule 9 Active Additional Information Patient not taking.Reported on 02/19/2019 LACTULOSE 0.67 gram/mL solution TAKE 20 ML BY MOUTH DAILY 1800 mL 3 9 Active raNITIdine (ZANTAC) 150 mg tabletIndicatio ns:Laryngophary ngeal reflux Take 1 tablet (150 mg total) by mouth 2 (two) times a day 60 tablet [address] (CYMBALTA) 60 mg capsule TAKE 1 CAPSULE EVERY DAY 90 capsule 9 Active Active Problems Problem Noted Date Diagnosed Date Acquired deformity of joint of finger of left coy nd 12/26/2017 Assessment & Plan (12/26/2017 1:35 PM CDT): xrays of hands. Likely OA but no xrays Acquired deformity of joint of finger, right 03/2018 Assessment & Plan (12/26/2017 1:35 PM CDT): xrays of hands. Likely OA but no xrays Sensorineural hearing loss (SNHL) of both ears 0 02/28/2017 Arthralgia of hip 11/29/2016 Low back pain 07/29/2016 Knee pain 06/24/2016 Ankle pain 06/24/2016 Hyperlipidemia 06/17/2015 Hypertension 06/17/2015 Psoriasis 06/17/2015 Osteoarthritis of hip 03/16/2015 Immunizations Immunization Administration Dates Next Due Influenza, Unspecified 06/30/2015 Pneumococcal Conjugate, Unspecified 08/23/2017 Social History Tobacco Use Types Packs/Day Years Used Date Smoking Tobacco: Never Smokeless Tobacco: Never Comments Unknown Sex and Gender Information Value Date Recorded Sex Assigned at Not on file Legal Sex Female 12:02 PM HAND BOOTMAKER Gender Identity Not on file Sexual Orientation Not on file Last Filed Vital Signs Vital Sign Reading Time Taken Comments Blood Pressure 116/80 02/19/2019 1:35 PM CDT Pulse 66 02/19/2019 1:35 PM CDT Temperature 37.2 C (98.9 F) 06/21/2018 1:44 PM HAND BOOTMAKER Respiratory Rate 16 02/19/2019 1:35 PM CDT Oxygen Saturation 94% 02/19/2019 1:35 PM CDT Inhaled Oxygen Concentration - - Weight 69.9 kg (154 lb) 02/19/2019 1:35 PM CDT Height 162.6 cm (5' 4 ) 02/19/2019 1:35 PM CDT Body Mass Index 26.43 02/19/2019 1:35 PM CDT Plan of Treatment Not on file Insurance HU[employer]NA CHOICE MEDICARE PPO [employer] CHOICE MEDICARE PPO HU[employer]NA CHOICE MEDICARE PPO Care Teams Supervisor Heat Treating Relationship Specialty Start Date End Date Aurea Plaza MD PCP - General Family Medicine 05/07/19
--- OUTSIDE RECORDS SUMMARY | 2024-09-01 12:50 | XMS_ITS | Clinical Summary ---
Author Organization [facility] Address [address] [place] [address] Care Team Providers Care Pest Control Service Technician Name Role Phone Unavailable Primary Care Provider Unavailabl e Allergies Active Allergy Reactions Criticality Noted Date Comments Adhesive Tape Rash Medium 03/20/2023 Codeine Itching,Other (see comments) Low 03/03/2015 Sleeplessness and itching INSOMNIA Sleeplessness and itching INSOMNIA Lidocaine Other (see comments) Low 01/13/2017 Extreme shakes EXTREME SHAKING Extreme shakes EXTREME SHAKING Medications cycloSPORINE (RESTASIS) 0.05 % ophthalmic emulsion 1 drop in the morning and 1 drop in the evening. Active DULoxetine (CYMBALTA) [address] capsule Take 60 mg by mouth 1 (one) time each day Active Multiple Vitamins-Minera ls (Centrum Silver 50+Women) tablet Take 1 tablet by mouth in the morning. Active Ascorbic Acid 125 MG chewable tablet Chew 1 tablet in the morning. Active hydrOXYzine (ATARAX) 25 MG tablet Take 25 mg by mouth 3 (three) times a day if needed for itching Active benzonatate (TESSALON) 100 MG capsule Take 100 mg by mouth 3 (three) times a day if needed for cough Do not crush or chew. Active Magnesium 500 MG capsule Take 1 tablet by mouth in the morning and 1 tablet in the evening. Active Apremilast (Otezla) 30 MG tablet Take 1 tablet by mouth in the morning and 1 tablet in the evening. Active Active Problems Problem Noted Date Diagnosed Date Chronic depression 11/14/2023 Psoriatic arthritis 11/14/2023 Hip joint replaced by other means 11/14/2023 Stage 3b chronic kidney disease 11/14/2023 Degenerative joint disease involving knee 2023 Hearing loss <Bilateral> 11/14/2023 Cobalamin deficiency 11/10/2023 Vitamin D deficiency 11/10/2023 Other iron deficiency anemia 11/10/2023 Hypertension 06/17/2015 Family History Medical History Relation Comments Cancer Brother Diabetes Mother Hypertension Mother Relation Status Comments Brother Father Mother Social History Tobacco Use Types Packs/Day Years Used Date Smoking Tobacco: Never Smokeless Tobacco: Never Tobacco Cessation:Counseling Given: Not Answered Alcohol Use Standard Drinks/Week Comments Never 0 (1 standard drink = 0.6 oz pur e alcohol) Comments Unknown Sex and Gender Information Value Date Recorded Sex Assigned at Not on file Legal Sex Female 9:52 AM EDT Gender Identity Not on file Sexual Orientation Not on file Last Filed Vital Signs Vital Sign Reading Time Taken Comments Blood Pressure 120/70 12/12/2023 11:30 AM CDT Pulse 87 12/12/2023 11:30 AM CDT Temperature 36.1 C (97 F) 12/12/2023 11:30 AM CDT Respiratory Rate 18 12/12/2023 11:30 AM CDT Oxygen Saturation 96% 12/12/2023 11:30 AM CDT Inhaled Oxygen Concentration - - Weight 63.5 kg (140 lb) 12/12/2023 11:30 AM CDT Height 162.6 cm (5' 4 ) 11/14/2023 11:20 AM CDT Body Mass Index 24.03 11/14/2023 11:20 AM CDT Plan of Treatment Health Maintenance Due Date Last Done Comments Pneumococcal Vaccine: 65+ Ye ars (1 of 2 - PCV) 1951 Influenza Vaccine (#1) 2024 06/30/2015 Hepatitis B Vaccine Aged Out No longe r eligible based on patient's age to complete this topic Insurance MEDICARE
--- OUTSIDE RECORDS SUMMARY | 2024-09-01 12:50 | XMS_ITS | Referral Summary ---
Author Organization [facility] [employer] Address [address] [place] [address] Care Team Providers Care Financial Analysis Advisor Name Role Phone Rajesh Palmer MD Unavailable Aurea Plaza MD Primary Care Provider [phone] Source Comments [facility],non-owned Affiliates and Associated Physician Practices is amultiple site organization consisting of ambulatory clinics and hospital sitesin [place], [place], [place] and [place]. This disclosure is being madepursuant to the Care Everywhere program and may not contain all information available regarding this patient. Last updated 18.[facility] Allergies Active Allergy Reactions Criticality Noted Date [...] mouth once daily Active Glucosamine-Chondroit in-Vit D3 7352-9775-929 MG-MG-UNIT Take 2 Tabs by mouth once [...] tablet Take by mouth once daily Active [id number] 3-Phytoster (ANIMI-3/VITAMIN D PO) Active Social History [...] 01/20/2020 2:17 PM CDT Plan of Treatment Not on file Care Teams Financial Analysis Advisor Relationship Specialty Start Date End Date Aurea Plaza MD [address] [place] [id number] PCP - General 10/11/22 [place] [address] [address] Orthopedic Surgery 01/13/17
--- OUTSIDE RECORDS SUMMARY | 2024-09-01 12:50 | XMS_ITS | Clinical Summary ---
Author Organization [facility] Address [address] [place] [address] Care Team Providers Care Manager Chemistry Name Role Phone Aurea Plaza MD Primary Care Provider + Allergies Active Allergy Reactions Criticality Noted Date Comments Adhesive Rash Medium Codeine Itching,Other (See comments) Low 015 INSOMNIA Lidocaine Other (See comments) Low 01/05/2018 EXTREME SHAKING Medications folic acid (FOLVITE) 1 mg tablet take 1 tablet daily 5 Active gluc rice/chondro rice A/vit C/Mn (GLUCOSAMINE-CH ONDROIT-VIT C-MN) 857-142-52-5 mg tablet daily. 5 Active multivitamin tabletIndicatio [...] Influenza, Unspecified 06/30/2015 Pneumococcal Conjugate, Unspecified 08/23/2017 Surgical History Surgery Date Site/Laterality Comments CA NEUROPLASTY &/TRANSPOS ME MARLEN NRV CARPAL TUNNE Neuroplasty Decompression Median Nerve At Carpal Tunnel - (Added by TW Conv) CA STOT/TOT HYSTERECTOMY AFT ER DELIVERY Hysterectomy - (Added by TW Conv) CA COLECTOMY PARTIAL W/ANASTOMOSIS Partial Colectomy - (Added by TW Conv) CA REPAIR RECTOCELE SEPARATE PROCEDURE Rectocele Repair - (Added by TW Conv) CA PARAVAGINAL DEFECT REPAIR OPEN ABDOMINAL APPR Paravaginal Defect Repair - (Added by TW Conv) KNEE SURGERY Knee Surgery - (Added by TW Conv) CA EXPLORATORY LAPAROTOMY CELIOTOMY W/WO BIOPSY SPX Exploratory Laparotomy - (Added by TW Conv) Medical History Medical History Date Comments Arthritis Osteoarthritis Scoliosis Family History Medical History Relation Name Comments Diabetes Mother Family history of diabetes mellitus - (Added by TW Conv) Relation Name Status Comments Mother Social History Tobacco Use Types Packs/Day Years Used Date Smoking Tobacco: Never Smokeless Tobacco: Never Comments Unknown Sex and Gender Information Value Date Recorded Sex Assigned at Not on file Legal Sex Female 12:02 PM ORGANIZATIONAL CONSULTANT Gender Identity Not on file Sexual Orientation Not on file Obstetrics History Last Filed Vital Signs Vital Sign Reading Time Taken Comments Blood Pressure 116/80 02/19/2019 1:35 PM CDT Pulse 66 02/19/2019 1:35 PM CDT Temperature 37.2 C (98.9 F) 06/21/2018 1:44 PM ORGANIZATIONAL CONSULTANT Respiratory Rate 16 02/19/2019 1:35 PM CDT Oxygen Saturation 94% 02/19/2019 1:35 PM CDT Inhaled Oxygen Concentration - - Weight 69.9 kg (154 lb) 02/19/2019 1:35 PM CDT Height 162.6 cm (5' 4 ) 02/19/2019 1:35 PM CDT Body Mass Index 26.43 02/19/2019 1:35 PM CDT Plan of Treatment Health Maintenance Due Date Last Done Comments Osteoporosis Screening-Bone Density Scan 1945 DTaP/Tdap/Td Vaccine (1 - Tdap) 1954 Hepatitis B Screening 1961 Zoster Vaccine (1 of 2) 1962 Well Visit 65+ 01/29/2008 Pneumococcal vaccine 65+ (2 of 2 - PPSV23) 10/18/2017 08/23/2017 Depression Screening 12/26/2018 12/26/2017 Fall Risk Assessment 12/26/2018 12/26/2017 Influenza Vaccine (#1) 2024 06/30/2015 Insurance HUMANA CHOICE MEDICARE PPO HUMANA CHOICE MEDICARE PPO [id number] CHOICE MEDICARE PPO Care Teams Manager Chemistry Relationship Specialty Start Date End Date Aurea Plaza MD PCP - General Family Medicine 05/07/19
--- OUTSIDE RECORDS SUMMARY | 2024-09-01 12:50 | XMS_ITS | Clinical Summary ---
Author Organization [facility] Address [address] [place] [address] Care Team Providers Care Finance Specialist Name Role Phone Aurea Plaza MD Primary Care Provider Allergies Active Allergy Reactions Criticality Noted Date Comments Codeine Itching,Other (see comment) Low 03/03/2015 Sleeplessness and itching INSOMNIA Lidocaine Other (see comment) Low 01/13/2017 Extreme shakes EXTREME SHAKING Tape Rash Medium 03/20/2023 Medications DULoxetine (CYMBALTA) 30 MG capsule Take 1 capsule (30 mg total) by mouth 2 (two) times daily. Active folic acid (FOLVITE) 1 MG tablet Take 1 tablet (1 mg total) by mouth daily. Active meloxicam (MOBIC) 15 MG tablet Take 1 tablet (15 mg total) by mouth daily. Active methotrexate (TREXALL) 2.5 MG tablet Take 1 tablet (2.5 mg total) by mouth once a week. Active Multiple Vitamins-Minera ls (CENTRUM SILVER 50+WOMEN) Tab Take 1 tablet by mouth daily. Active cycloSPORINE (RESTASIS) 0.05 % ophthalmic emulsion 1 drop 2 (two) times daily. Active Family History Medical History Relation Comments Diabetes Mother Hypertension Mother Relation Status Comments Mother Social History Tobacco Use Types Packs/Day Years Used Date Smoking Tobacco: Never Passive Smoke Exposure: Never Smokeless Tobacco: Never Tobacco Cessation:Counseling Given: Not Answered Alcohol Use Standard Drinks/Week Comments Not Currently 0 (1 standard drink = 0.6 oz pur e alcohol) PHQ-2 Answer Date Recorded Patient Health Questionnaire-2 Score 1 03/20/2023 Comments Unknown Sex and Gender Information Value Date Recorded Sex Assigned at Not on file Legal Sex Female 9:42 AM CDT Gender Identity Not on file Sexual Orientation Not on file Last Filed Vital Signs Vital Sign Reading Time Taken Comments Blood Pressure 144/81 03/20/2023 1:54 PM CDT Pulse 74 03/20/2023 1:54 PM CDT Temperature 37.3 C (99.2 F) 03/20/2023 1:54 PM CDT Respiratory Rate 17 03/20/2023 1:54 PM CDT Oxygen Saturation 91% 03/20/2023 1:54 PM CDT Inhaled Oxygen Concentration - - Weight 64.2 kg (141 lb 9.6 oz) 03/20/2023 1:54 P M CDT Height 162.6 cm (5' 4 ) 03/20/2023 1:54 PM CDT Body Mass Index 24.31 03/20/2023 1:54 PM CDT Plan of Treatment Health Maintenance Due Date Last Done Comments DTaP, Tdap and Td Vaccines ( 1 - Tdap) 1962 Zoster Vaccines (1 of 2) 1993 Annual Medicare Wellness Visit 01/29/2008 Dexa Scan (General) 01/29/2008 Pneumococcal Vaccine: 65+ Years (1 of 1 - PCV) 01/29/2008 RSV Immunization or 60+ Years (1 - 1-dose 75+ series) 2018 COVID-19 Vaccine (3 - 2023-2 5 season) 2024 11/26/2020, 11/05/2020 Influenza Adult (#1) 2024 06/30/2015 PHQ-2 (Physician [place]) 03/20/2024 03/20/2023 PHQ-2 (Physician [place]) 06/19/2024 03/20/2023 Meningococcal B Vaccine Aged Out No l onger eligible based on patient's age to complete this topic Meningococcal Vaccine Aged Out No renee leydi eligible based on patient's age to complete this topic RSV Immunizations Under 20 Months Aged Out No longer eligible b ased on patient's age to complete this topic Insurance Care Teams Finance Specialist Relationship Specialty Start Date End Date Aurea Plaza MD [address] [place] [address] [place] [address] PCP - General FAMILY PRACTICE 09/13/22
== END 2024-09-01 12:47 | disposition home or self-care (01) ==
PROVIDERS: PCP Nurse Practitioner Family; Visit Provider Nurse Practitioner Family
DX: M47.896 Other spondylosis, lumbar region (principal); M48.061 Spinal stenosis, lumbar region without neurogenic claudication; M70.62 Trochanteric bursitis, left hip; M94.252 Chondromalacia, left hip; Z96.641 Presence of right artificial hip joint
CPT/HCPCS: 72148; 73721

== ENCOUNTER 2024-10-28 13:44 | Outpatient (CLI) | payer MEDICARE, SELFPAY ==
--- OUTSIDE RECORDS SUMMARY | 2024-10-28 13:48 | XMS_ITS | Clinical Summary ---
Author Organization [facility] Facility Address [address] [place] [address] Care Team Providers Care Gaming Table Operator Name Role Phone Unavailable Primary Care Provider [...] Due Date Last Done Comments Pneumococcal Vaccine: 50+ Ye ars (1 of 2 - PCV) 1962 Influenza Vaccine (Season Ended) 2025 06/30/19 16 Hepatitis B Vaccine Aged Out No longe r eligible based on patient's age to complete this topic Insurance Medicare
--- OUTSIDE RECORDS SUMMARY | 2024-10-28 13:48 | XMS_ITS | Data Portability ---
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 [address], [place], [address] , [employer] 4 16:44:27 Muscle weakness 93331425 Active 2023 CORDELL ROBIN APRN [address] [place] [address], [place], [place], [address] [place] [address] , [employer] 4 16:44:32 Abnormal gait due to muscle weakness 258945075 Active 2023 CORDELL ROBIN APRN [address] [place] [address], [place], [address] [place] [address] , [employer] 4 16:44:35 Rheumatoid arthritis 12997024 Active 2023 CORDELL ROBIN APRN [address] [place] [address], [place], [address] [place] [address] , [employer] 4 16:44:47 Dizziness and giddiness 537979911 Active 2023 CORDELL ROBIN APRN [address] [place] [address], [place], [address] [place] [address] , [employer] 4 16:47:06 Problem Notes None recorded. Medical [...] Updated DateTime 03/18/2024 162.56 cm 23.5 kg/m2 66209.15 g CORDELL ROBIN [facility] [address] [place] [address] [address], [place], [address], [place] [facility] [employer] 03/18/2024 15:13:58 Social History None recorded. Functional Status None recorded. Mental Status None recorded. Family History Nothing Reported. Medical History No medical history recorded. Gynecological HistoryNo gynecological history recorded. 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 Muscle weakness 77457840 M62.81 --Continue to work with HH SN/PT/OT to increase strength and balance. Abnormal g ait due to muscle weakness 150995900 M62.81 -Continue to work with HH SN/PT/OT to increase strength and balance. Rheumatoid arthritis 698 42948 M06.9 -Continue with current medical management and medication s.-Continu e with SN/PT/OT to help with pain, exercise and to gain strength Dizziness and giddiness 689959141 R42 -Continue to work with HH SN/PT/OT to help with balance. History of total knee arthroplasty 2575434815 105 Z96.659 -Continue with current medical management .-Continue medication -Continue with HH SN/PT/OT to care for after surgical procedure. Health Concerns Section Related Observation LastModified by Organization Detai ls LastModified Time None Recorded Concern Status LastModified by Organization Details LastModified Time None Recorded Advance Directives Directive None Recorded Payers Insurance Date Sequence Insurance Name Policy Number Policy Hernandez Covered Member ID Hernandez Member ID Guarantor Name 08/17/2024 1 [employer] (MEDICARE REPLACEMENT/ ADVANTAGE - HMO) Alissa Hutchinson [id number] Alissa Petersonaniel Notes Date Note Type Note [...] No acute findings reported today. 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
--- OUTSIDE RECORDS SUMMARY | 2024-10-28 13:48 | XMS_ITS | CONTINUITY OF CARE DOCUMENT ---
Author Name cristina evans Address Unknown Organization [facility] Address [address] [place] [address] [address] [place] [address] Phone [phone] Care Team Providers Care Drill Grinder Name Role Phone Roel Landa MD Unavailable SYDNEY MARTINO MD Unavailable [phone] INSURANCE PROVIDERS Payer name Policy type / Coverage type [place] red alliance party ID [facility] [employer] insurance Plaid [id number] [place] Medicare [id number]
--- OUTSIDE RECORDS SUMMARY | 2024-10-28 13:49 | XMS_ITS | Clinical Summary ---
Author Organization [facility] Address [address] [place] [address] Care Team Providers Care Tire Tester Name Role Phone Aurea Plaza MD Primary Care Provider + Allergies Active Allergy Reactions Criticality Noted Date Comments Adhesive Rash Medium Codeine Itching,Other (See comments) Low 015 INSOMNIA Lidocaine Other (See comments) Low 01/05/2018 EXTREME SHAKING Medications folic acid (FOLVITE) 1 mg tablet take 1 tablet daily 5 Active gluc rice/chondro rice A/vit C/Mn (GLUCOSAMINE-CH ONDROIT-VIT C-MN) 150-151-50-5 mg tablet daily. 5 Active multivitamin tabletIndicatio [...] 08/23/2017 Surgical History Surgery Date Site/Laterality Comments SD NEUROPLASTY &/TRANSPOS ME MARLEN NRV CARPAL TUNNE Neuroplasty Decompression Median Nerve At Carpal Tunnel - (Added by TW Conv) SD STOT/TOT HYSTERECTOMY AFT ER DELIVERY Hysterectomy - (Added by TW Conv) SD COLECTOMY PARTIAL W/ANASTOMOSIS Partial Colectomy - (Added by TW Conv) SD REPAIR RECTOCELE SEPARATE PROCEDURE Rectocele Repair - (Added by TW Conv) SD PARAVAGINAL DEFECT REPAIR OPEN ABDOMINAL APPR Paravaginal Defect Repair - (Added by TW Conv) KNEE SURGERY Knee Surgery - (Added by TW Conv) SD EXPLORATORY LAPAROTOMY CELIOTOMY W/WO BIOPSY SPX Exploratory [...] on file 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
--- OUTSIDE RECORDS SUMMARY | 2024-10-28 13:49 | XMS_ITS | Clinical Summary ---
Author Organization [facility] Address [address] [place] [address] Care Team Providers Care Cooking Show Host Name Role Phone Aurea Plaza MD Primary [...] Td Vaccines ( 1 - Tdap) 1964 Pneumococcal Vaccine: 50+ Years (1 of 1 - PCV) 1993 Zoster Vaccines (1 of 2) 1993 Annual Medicare Wellness Visit 01/29/2008 Dexa Scan (General) 01/29/2008 RSV Immunization or 60+ Years (1 - 1-dose 75+ series) 2018 COVID-19 Vaccine (3 - 2023-2 5 season) 2024 11/26/2020, 11/05/2020 PHQ-2 (Physician [place]) 06/19/2024 03/20/2023 Meningococcal B Vaccine Aged Out No l onger eligible based on patient's age to complete this topic Meningococcal Vaccine Aged Out No renee leydi eligible based on patient's age to complete this topic RSV Immunizations Under 20 Months Aged Out No longer eligible b ased on patient's age to complete this topic Insurance [employer] Care Teams Cooking Show Host Relationship Specialty Start Date End Date Aurea Plaza MD [address] [place] [address] PCP - General FAMILY PRACTICE 09/13/22
--- OUTSIDE RECORDS SUMMARY | 2024-10-28 13:49 | XMS_ITS | Referral Summary ---
Author Organization [facility] Address [address] [place] [address] Care Team Providers Care Sales Performance Manager Name Role Phone Aurea Plaza MD Primary Care Provider + Allergies Active Allergy Reactions Criticality Noted Date Comments Adhesive Rash Medium Codeine Itching,Other (See comments) Low 015 INSOMNIA Lidocaine Other (See comments) Low 01/05/2018 EXTREME SHAKING Medications folic acid (FOLVITE) 1 mg tablet take 1 tablet daily 5 Active gluc rice/chondro rice A/vit C/Mn (GLUCOSAMINE-CH ONDROIT-VIT C-MN) 778-623-44-5 mg tablet daily. 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 Gender Identity Not on file Sexual Orientation Not on file Last Filed Vital Signs Vital Sign Reading Time Taken Comments Blood Pressure 116/80 02/19/2019 1:35 PM CDT Pulse 66 02/19/2019 1:35 PM CDT Temperature 37.2 C (98.9 F) 06/21/2018 1:44 PM LOKIE ENGINEER Respiratory Rate 16 02/19/2019 1:35 PM CDT Oxygen Saturation 94% 02/19/2019 1:35 PM CDT Inhaled Oxygen Concentration - - Weight 69.9 kg (154 lb) 02/19/2019 1:35 PM CDT Height 162.6 cm (5' 4 ) 02/19/2019 1:35 PM CDT Body Mass Index 26.43 02/19/2019 1:35 PM CDT Plan of Treatment Not on file Insurance [employer] CHOICE MEDICARE PPO [employer] CHOICE MEDICARE PPO [employer] CHOICE MEDICARE PPO Care Teams Sales Performance Manager Relationship Specialty Start Date End Date Aurea Plaza MD PCP - General Family Medicine 05/07/19
--- OUTSIDE RECORDS SUMMARY | 2024-10-28 13:49 | XMS_ITS | Clinical Summary ---
Author Organization [facility] Address [address] [place] [address] Care Team Providers Care Mold Hoister Name Role Phone Rajesh Palmer MD Unavailable Aurea Plaza MD Primary Care Provider [phone] Source Comments [facility],non-owned Affiliates and Associated Physician Practices is amultiple site organization consisting of ambulatory clinics and hospital sitesin [place], [place], [place] and [place]. This disclosure is being madepursuant to the Care Everywhere program and may not contain all information available regarding this patient. Last updated 18.[facility] Allergies Active Allergy Reactions Criticality Noted Date Comments Adhesive Sensitivity 01/13/2017 Rash Codeine 01/13/2017 Sleeplessness and itching Lidocaine 01/13/2017 Extreme shakes Medications * Be aware that medications may not be up to date on this document. Alwaysverify current medications with the patient. methotrexate 2.5 MG tabletIndicatio ns:10 tab Take 2.5 mg by mouth every 7 days Reasons: 10 tab Active folic acid (FOLVITE) 1 MG tablet Take 1 mg by mouth once daily Active Glucosamine-Cho ndroitin-Vit D3 1394-1820-256 MG-MG-UNIT Take 2 Tabs by mouth once daily Active meloxicam (MOBIC) 15 MG tablet Take 15 mg by mouth once daily Active Multiple Vitamins-Minera ls (CENTRUM SILVER 50+WOMEN) TABS Take 1 Tab [...] tablet Take by mouth once daily Active [id number] ga 3-Phytoster (ANIMI-3/VITAMI N D PO) Active Social History Tobacco Use Types Packs/Day Years Used Date Smoking Tobacco: Never Assessed Comments No Sex and Gender Information Value Date Recorded Sex Assigned at Not on file 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 [address] PCP - General 10/11/22 [place] [address] [facility] [address] [address] Orthopedic Surgery 01/13/17
--- OUTSIDE RECORDS SUMMARY | 2024-10-28 13:49 | XMS_ITS | Data Portability ---
Author Organization [place] - [facility] [employer], Main Office Address [address] [place] [address] Care Team Providers Care Building Services Engineer Name Role Phone EL PLAZA Primary Care Provider [phone] EL PLAZA Referring Provider Assessment No assessment recorded. Plan of Treatment Reminders Order Date Submit Date Provider Last Modified By Organization Details Last Modified Time Details Appointments None recorded. Lab vitamin D, 25-hydroxy, total, serum 2022 023 [email or web address] Not available 3 08:23:46 BMP, serum or plasma 2022 023 [email or web address] Not available 3 08:18:31 hepatic function panel, serum 2022 023 [email or web address] Not available 3 08:47:16 ESR (erythrocyt e sedimentati on rate), blood 2022 023 [email or web address] Not available 3 08:47:17 TSH, serum or plasma 2022 023 ESDRAS Not available 3 08:23:30 vitamin B12, serum 2022 023 Not available 3 08:47:16 folate, serum 2022 023 [email or web address] Not available 3 08:47:16 ferritin, serum or plasma 2022 023 [email or web address] Not available 3 08:47:16 iron + total iron-bindin g capacity (TIBC), serum 2022 023 ESDRAS Not available 3 08:23:15 CBC w/ auto diff 2022 023 [email or web address] Not available 3 09:22:54 Referral physical therapist referral - Please call pt to schedule 2024 025 [email or web address] [facility] Occupational [facility] Medicine [facility] Re[facility], [address] [place], [address], 5 11:05:[address] referral 2024 025 [email or web address] Carleen Chang MD (Dermatology) , [address], [facility], [place], [address], 5 10:57:07 neurologist referral - Please call pt to schedule appt. Thank you 2022 023 [email or web address] Roberto MD, 3 [facility], [address], [place], [address], 3 12:55:17 Procedures None recorded. Surgeries None recorded. Imaging XR, hip, unilateral, 2 or 3 view - Please XR left hip 2024 025 [facility], [address], [place], [address], 5 09:33:27 DEXA [address] (Admitting), [address], [place], [address], 3 15:48:25 Medication Orders hydrocodone 5 mg-acetamin ophen 325 mg tablet [address] [facility]armacy #[id number], [address], [place], [address], 5 15:39:19 cephalexin 500 mg capsule 2023 024 [facility]/Pharmacy #[id number], [address], [place], [address], 5 15:02:37 methotrexat e sodium 2.5 mg tablet 2023 024 [id number], [address], [place], [address], 4 14:47:45 duloxetine 60 mg capsule,del ayed release 2023 024 [id number], [address] [place], [address], 4 14:47:48 lidocaine 3 %-hydrocort isone 0.5 % rectal cream [email or web address] [place], [place] [address]Pharmacy #[id number], [address], [place], [address], 4 14:18:10 mupirocin 2 % topical ointment 2022 [email or web address] [place], [place] [address]Pharmacy #[id number], [address] [place], [address], 4 14:16:10 Patient TargetsNo targets recorded. Patient InstructionsNo instructions recorded. Reason for Referral Neurologist Referral for Hao mor Please call pt to schedule appt. Thank you Referring Physician: El Plaza, Family Medicine, Encounter Date: 08/30/2022 Physical Therapist Referral for Pain of left hip joint Please call pt to schedule Referring Physician: Lena Sevilla [facility], Encounter Date: 07/02/2024 Janitorial Assistant Referral for A ctinic keratosis Referring Physician: Lena Sevilla [facility], Encounter Date: 07/02/2024 Results Created Date Observation Date Name Description Value Unit Range Abnormal Flag Note LastModifiedBy Organization Detail LastModifiedTime 09/21/1909/01/2022 DEXA No observ ation record ed. [email or web address] [address], [place], [address], 11/22/2022 10:45:09 09/14/19 24 09/13/2023 XR, knee No observ ation record ed. [address] [facility], [place], [address], 11/03/2023 19:49:35 09/27/19 24 09/27/2023 CT, lower extre mity, w/o contr ast No observ ation record ed. [address] [address], [place], [address], 11/03/2023 19:49:55 11/23/19 24 11/23/2023 XR, chest , 2 view No observ ation record ed. [address] [address], [place], [address], 12/12/2023 08:24:29 11/28/19 24 11/27/2023 US, renal No observ ation record ed. [address] [address], [place], [address], 12/12/2023 08:24:52 12/25/19 24 12/25/2023 CT, cervi salvador spine , w/o contr ast No observ ation record ed. [address], [place], [address], 01/17/2024 17:09:59 12/25/19 24 12/25/2023 CT, lumba r spine , w/o contr ast No observ ation record ed. [address], [place], [address], 01/17/2024 17:10:24 02/15/20 24 02/15/2024 XR, knee No observ ation record ed. [email or web address] [address], [place], [address], 02/28/2024 15:19:09 07/13/19 25 07/12/2024 XR, hip, unila teral , 2 or 3 view No observ ation record ed. [address], [place], [address], 07/16/2024 10:17:20 09/03/19 25 09/01/2024 MRI, lumba r spine , w/o contr ast No observ ation record ed. [email or web address] [address], [place], [address], 09/02/2024 12:00:55 09/03/19 25 09/01/2024 MRI, hip, w/o contr ast No observ ation record ed. [email or web address] [address], [place], [address], 09/02/2024 14:13:17 Result Notes None recorded. Problems Name Problem SNOMED Code Status Onset Date Resolution Date Notes Provider Name and Address Organization Details Recorded Time Osteoarthr itis 222562404 Active Not Available [facility] 3 21:17:37 Hematochez ia 640333908 Active 2020 Not Available [employer] 3 21:17:37 Psoriasis 3822364 Active 2020 Not Available [employer] 3 21:17:37 Vitamin D deficiency 41782894 Active 2022 lE Plaza MD [address], [facility], [place], [address] , [employer] 3 17:27:42 Iron deficiency anemia 07388618 Active 2022 El Plaza MD [address], [address], [place], [address] , [employer] [facility] [employer] [facility] 3 17:27:49 Cobalamin deficiency 042267007 Active 2022 El Plaza MD [address], [address], [place], [address] , [place] [facility] 3 17:27:57 Fatigue 95224584 Active 2022 El Plaza MD [address], [address], [place], [address] , [place] [facility] 3 17:28:42 Bone pain 57791029 Active 2022 El Plaza MD [address], [address], [place], [address] , [place] [facility] 3 17:31:00 Tremor 66368082 Active 2022 El Plaza MD [address], [address], [place], [address] , [place] [facility] 3 17:33:55 Deviated nasal septum 406867392 Active 2022 Jamal Pak MD [address], [address], [place], [address] , [place] [facility] 3 15:46:22 Folliculit is 95511476 Active 2022 Jamal Pak MD [address], [address], [place], [address] , [place] [facility] 3 15:46:31 Hemorrhoid s 30139939 Active 2022 El Plaza MD [address], [address], [place], [address] , [place] [facility] 3 15:51:32 Psoriatic arthritis 732519494 Active 2022 El Plaza MD [address], [address], [place], [address] , [place] [facility] 3 17:55:14 Pain of bilateral knee joints 5186752968681 04 Active 2023 El Plaza MD [address], [address], [place], [address] , [place] [facility] 4 16:32:35 Serum creatinine above reference range 328622343 Active 2023 El Plaza MD [address], [address], [place], [address] , [place] [facility] 4 16:55:11 Cellulitis of lower limb 673145396 Active 2023 VENITA Lancaster [address], [address], [place], [address] , [place] [facility] [email or web address] [facility] 4 14:45:48 Pain of left hip joint 2925570911287 00 Active 2024 DANIELA Lagos [address], [address], [place], [address] , [place] [facility] [employer] 5 15:26:49 Actinic keratosis 725113133 Active 2024 DANIELA Lagos [address], [address], [place], [address] , [place] [facility] [email or web address] [employer] 5 15:35:46 Lumbar spondylosi s 474662844 Active 2024 VENITA Lancaster [address], [address], [place], [address] , [place] [facility] 5 10:24:12 Problem Notes None recorded. Procedures Surgical History Date Name Laterality Status Provider Name and Address Organization Details Recorded Time 09/22/19 23 hemorrhoidectomy completed Yolis Sanabria [place] [email or web address] 10/04/2022 11:18:19 Imaging Results Imaging Date Name Status LastModified by Organiz ation Details LastModified Time 09/01/2022 DEXA completed [facility] [address], [place], [address], 11/22/2022 10:45:09 09/13/2023 XR, knee completed [address], [place], [address], 11/03/2023 19:49:35 09/27/2023 CT, lower extremity, w/o contrast completed [address], [place], [address], 11/03/2023 19:49:55 11/23/2023 XR, chest, 2 view completed [address], [place], [address], 12/12/2023 08:24:29 11/27/2023 US, renal completed [address], [place], [address], 12/12/2023 08:24:52 12/25/2023 CT, cervical spine, w/o contrast completed [address] [facility], [place], [address], 01/17/2024 17:09:59 12/25/2023 CT, lumbar spine, w/o contrast completed [address] [address], [place], [address], 01/17/2024 17:10:24 02/15/2024 XR, knee completed [email or web address] [address] [facility], [place], [address], 02/28/2024 15:19:09 07/12/2024 XR, hip, unilateral, 2 or 3 view completed [address], [place], [address], 07/16/2024 10:17:20 09/01/2024 MRI, lumbar spine, w/o contrast completed [address], [place], [address], 09/02/2024 12:00:55 09/01/2024 MRI, hip, w/o contrast completed [address], [place], [address], 09/02/2024 14:13:17 Procedure Notes None recorded. Medical Equipment None Reported. Allergies Allergen ID Allergen Name Allergen Category Reaction Reaction Severity Criticality Documentation Date Start Date Code Code System Note Provider Name and Address Organization Details Recorded Time 10847 lidocaine medicatio n other Not available Not available 08/17/2022 6387 RxNorm Extre me shaki ng Not Available [facility] 3 21:19:03 04387 codeine medicatio n Not available Not available Not available 08/17/2022 2670 RxNorm Itchi ng, sleep lessn ess Not Available [facility] 3 21:19:03 13404 adhesive tape environme nt,medica tion rash Not available Not available 08/17/2022 85646 UNK Need paper tape Not Available [facility] 3 21:19:03 Medications Name Sig Start Date Stop [...] administ ered by the provider 08/19 completed [facility]: 0003-049 4-20 Not Available Not Available Not [...] the office by the doctor 12/23 completed NDC: 91790498 001 Not Available Not Available Not Available [...] administ ered by the provider 08/19 completed [facility]: 0409-427 617 Not Available Not Available Not Available Otezla [...] Updated DateTime 3 162.56 cm 25.4 kg/m2 01341.6 7 g 98.6 [degF] 76 /min 99 % 99 % 128 mm[Hg] 84 mm[Hg] Ramon Sebastien [facility] [employer] [facility] 3 17:16:44 Date Recorded Body height Body mass index (BMI) Body weight Body temperature Provider Name and Address Organization Details Last Updated DateTime 09/08/2022 162.56 cm 25.1 kg/m2 18460.49 g 97.6 [degF] El Hayestania [facility] [employer] [facility] 09/08/2022 15:30:10 Date Recorded Body height Body mass index (BMI) Body weight Body temperature Heart rate Oxygen saturation Oxygen saturation in Arterial blood by Pulse oximetry Systolic blood pressure Diastolic blood pressure Provider Name and Address Organization Details Last Updated DateTime 3 162.56 cm 25.1 kg/m2 01031.4 9 g 97.9 [degF] 84 /min 96 % 96 % 116 mm[Hg] 80 mm[Hg] Dariana Fernandes MA [facility] [employer] [facility] 3 15:41:23 Date Recorded Body weight Body temperature Heart rate Oxygen saturation Oxygen saturation in Arterial blood by Pulse oximetry Systolic blood pressure Diastolic blood pressure Provider Name and Address Organization Details Last Updated DateTime 4 82485.6 g 97.5 [degF] 64 /min 94 % 94 % 122 mm[Hg] 88 mm[Hg] Bubba Tang RN [facility] [employer] [facility] 4 14:15:46 Date Recorded Body weight Body mass index (BMI) Body height Body temperature Pain severity - 0-10 verbal numeric rating [Score] - Reported Respiratory rate Heart rate Oxygen saturation Oxygen saturation in Arterial blood by Pulse oximetry Systolic blood pressure Diastolic blood pressure Provider Name and Address Organization Details Last Updated DateTime 5 36365.5 5 g 23.8 kg/m2 162.56 cm 97.3 [degF] 8 24 /min 79 /min 97 % 97 % 150 mm[Hg] 88 mm[Hg] Gretchen Zamorano RN [facility] [employer] [facility] 5 15:07:15 Social History Question Answer Notes LastModified by Organization Details LastModified Time Tobacco Smoking Status Never Smoker Not Available [facility] 08/17/2022 21:17:11 Are You Blind Or Do You Have Difficulty Seeing? No Information not available 07/02/2024 What Is Your Level Of Caffeine Consumption? None MIGRATION.0301 [id number] Information not available 08/17/2022 In The 14 Days Before Symptom Onset, Have You Had Close Contact With A Laboratory-confi rmed COVID-19 While That Case Was Ill? No MIGRATION.0301 [id number] Information not available 08/17/2022 In The 14 Days Before Symptom Onset, Have You Had Close Contact With A Person Who Is Under Investigation For COVID-19 While That Person Was Ill? No MIGRATION.0301 [id number] Information not available 08/17/2022 Are You Deaf Or Do You Have Serious Difficulty Hearing? Yes Hearing Aids That Do Not Work Information not available 07/02/2024 What Type Of Diet Are You Following? REGULAR MIGRATION.0301 [id number] Information not available 08/17/2022 Which Illicit Or Recreational Drugs Have You Used? None MIGRATION.0301 975117 Information not available 08/17/2022 Have There Been Any Changes To Your Family Or Social Situation? No Information not available 07/02/2024 Where Do You Live? SingleLevelHouse Information not available 07/02/2024 What Was The Date Of Your Most Recent Tobacco Screening? 12/23/2020 MIGRATION.0301 [id number] Information not available 08/17/2022 Do You Have Any Pets? No Information not available 07/02/2024 Do You Use Your Seat Belt Or Car Seat Routinely? Yes Information not available 07/02/2024 Do You Have Smoke And Carbon Monoxide Detectors In Your Home? Yes Information not available 07/02/2024 Are You Passively Exposed To Smoke? No Information not available 07/02/2024 Are There Any Smokers In Your House? No Information not available 07/02/2024 Do You Participate In Social Media? No Information not available 07/02/2024 Have You Recently Traveled Abroad? No Information not available 07/02/2024 Sex: Unknown Functional Status Question Answer Note LastModified by Organizat ion Details LastModified Time What is your level of alcohol consumption? None MIGRATION.57525 63375 Information not available 08/17/2022 Do you or have you ever used smokeless tobacco? Never used smokeless tobacco MIGRATION.80015 19141 Information not available 08/17/2022 Are you currently employed? No Information not available 07/02/2024 Do you have difficulty walking or climbing [...] able to care for yourself? Yes Information not available 07/02/2024 What is your occupation? retired MIGRATION.82012 51599 Information not available 08/17/2022 Do you have difficulty dressing or bathing? No Information not available 07/02/2024 Do you or have you ever used e-cigarettes or vape? Never used electronic cigarettes MIGRATION.44640 73910 Information not available 08/17/2022 What is your exercise level? None MIGRATION.76937 49601 Information not available 08/17/2022 Mental Status Question Answer Note LastModified by [employer] Details LastModified Time Do you feel stressed (tense, restless, nervous, or anxious, or unable to sleep at night)? [id number] Information not available 07/02/2024 Do you have difficulty concentrating, remembering or making decisions? No Information no t available 07/02/2024 Family History Relationship Description Onset Age of this Age Resolved Age Notes LastModified by Organization Details LastModified Time Mother Hypertensive disorder MIGRATION.858 [id number] Not available 08/17/2022 21:17:13 Mother Diabetes mellitus MIGRATION.694 [id number] Not available 08/17/2022 21:17:13 Medical History Condition Response SKIN PROBLEMS Y ARTHRITIS Y ANXIETY DISORDER Y Gynecological History Statement/Question [...] SNOMED-CT Code Diagnosis ICD10 Code Diagnosis Note [id number] El Plaza MD [facility] Primary Care [place] [facility] [address] [place] [address] 12/17/2020 00:00:00 12/17/2020 11:47:16 [id number] JULIAN Bennett S_[facility] Ortho [place] [address] [place] [address] 12/23/2020 00:00:00 12/23/2020 13:14:58 [id number] El Plaza MD [facility] Primary Care [place] [address] [place] [address] [address] [place] [address] 12/30/2020 00:00:00 01/15/2021 07:54:56 [id number] El Plaza MD [facility] Primary Care Zachary emmanuele [address] [place] [address] [address] [place] [address] 01/14/2021 00:00:00 01/14/2021 15:34:07 [id number] JULIAN Bennett S_[facility] [place] [address] [place] [address] 02/04/2021 00:00:00 02/04/2021 14:46:10 [id number] JULIAN Markham S_[facility] Primary Care aZchary lle [address] [facility] [address] [place] [address] 03/15/2021 00:00:00 03/15/2021 17:07:40 [id number] El Plaza MD [facility] Primary Care [place] [address] [facility] [address] [place] [address] 08/19/2021 00:00:00 09/15/2021 18:51:12 [id number] El Plaza MD [facility] Primary Care [place] [address] [place] [address] 10/25/2021 00:00:00 10/25/2021 13:24:38 [id number] El Plaza MD [facility] Primary Care [place] [address] [place] [address] 11/22/2021 00:00:00 12/15/2021 10:56:57 [id number] El Plaza MD [facility] Primary Care [place] [address] [place] [address] 12/27/2021 00:00:00 01/14/2022 12:59:25 [id number] El Plaza MD [facility] Primary Care [place] [address] [place] [address] 01/17/2022 00:00:00 01/17/2022 14:48:08 [id number] El Plaza MD [facility] Primary Care [place] [address] [place] [address] 03/01/2022 00:00:00 03/01/2022 14:58:10 [id number] El Plaza MD [facility] Primary Care [place] [address] [place] [address] 06/28/2022 00:00:00 06/28/2022 09:44:40 [id number] El Plaza MD [facility] Primary Care [place] [address] [place] [address] 07/28/2022 00:00:00 07/28/2022 11:45:26 [id number] El Plaza MD [facility] Primary Care [place] [address] [place] [address] 08/30/2022 17:08:33 08/30/2022 17:43:33 Vitamin D deficiency 23533756 E55.9 Iron defic iency anemia 79522031 D50.9 Cobalamin deficiency 190 806394 E53.8 Psoriasis 5780527 L40.9 Z79.899 Fatigue 53356839 R53.83 Bone pain 37060720 M89.8 X9 N95.1 Tremor 70975923 R25.1 R27.8 ? parkinsoni sm Menopausal and postmenopausal disorders 395698685 N95.9 [id number] Jamal Pak MD [facility] ENT [place] [address] [place] [address] 09/08/2022 15:20:39 09/08/2022 15:52:07 Deviated nasal septum 927052263 J34.2 Folliculitis 51401368 L7 3.9 [id number] El Plaza MD [facility] Primary Care [address] [place] [address] 10/05/2022 15:19:59 10/05/2022 15:57:58 Hemorrhoids 89178358 K64.9 [id number] JOSE LancasterP-C [facility] [address] [place] [address] 04/29/2024 14:02:13 04/29/2024 15:33:01 Psoriasis 2965164 L40.9 Otezla paperwork for the upcoming year filled out and handed back to patient. Renewal of prescription 137605492 Z76.0 Psoriatic arthritis 1563 27854 L40.50 Cellulitis of lower limb 072088389 L03.119 Will treat as listed below, discussed antibiotic therapy with patient. Patient aware to take medication with food and to drink plenty of water while taking this medication .Patient instructed to contact surgeon today regarding symptoms and treatment of cellulitis . Osteoarthritis 648435062 M19.90 Not well controlled , per patient.Di scussed pain management referral with patient, patient refuses at this time. [id number] Edward Corbett MD [facility] [address] [place] [address] 07/02/2024 14:44:47 07/03/2024 10:37:40 Pain of left hip joint 1231591508 11554 M25.552 Actinic keratosis 033429 007 L57.0 Right breast, 7 o'clock Health [...] GOLD PLUS (MEDICARE REPLACEMENT HMO) Alissa Petersonaniel [id number] Alissa Hutchinson 09/08/2022 1 [employer] - GOLD PLUS (MEDICARE REPLACEMENT HMO) Alissa Hill Hutchinson [id number] Alissa Hutchinson 10/05/2022 1 [employer] - GOLD PLUS (MEDICARE REPLACEMENT HMO) Alissa Petersonaniel [id number] Alissa Hutchinson 04/29/2024 1 [employer] - GOLD PLUS (MEDICARE REPLACEMENT HMO) Alissa Petersonaniel [id number] Alissa Hutchinson 07/02/2024 1 [employer] - GOLD PLUS (MEDICARE REPLACEMENT HMO) Alissa Petersonaniel [id number] Alissa Petersonaniel Notes Date Note Type Note [...] on September 21 El Plaza MD [address] [facility], [facility] [address], [place], [address], [facility] [employer] 09/16/2022 11:05:22 09/08/2022 text/html this patient reports that her nose runs and that she has bleeding and left-sided nasal obstruction this has been going on for years but she did fall 2 months ago and landed on her face. She has been using Vaseline but no mrrx-dyw-tbcqxbo medications she also reports that her voice changes some time to time that she has occasional throat pain as well. She also reports that she has occasional right ear pain which lasts for brief periods. Jamal Pak MD [address] [facility], [address] [address], [place], [address], [facility] [employer] [facility] 09/08/2022 15:47:06 10/05/2022 text/html currently on ote zla and is having some sores on face, she blames it on stress regarding surgery had hemorrhoid surgery on 09/22, still bleeding since then, saw Dr. Martinez on Monday in f/u, was told it was healing. She has pain with bowel movements and has f/u with Dr. Martinez in 2 weeks. El Plaza MD [address] [facility], [facility] [address], [place], [address], [facility] [employer] [facility] 10/14/2022 15:28:16 04/29/2024 text/html Patient is [...] denies chest pain and shortness of breath. VENITA Lancaster [address], [place], [address], [employer] 04/29/2024 20:58:40 07/02/2024 text/html Alissa Hutchinson i s an 79 year old female patient here today for pain. She states she has excruciating stabbing pains in her left hip. It will cause her to double over.She does have some oxycodone from a knee surgery on 02/15/24, but finds this keeps her awake. She has concerns with a brown spot on her right breast Lena Sevilla, [employer]MAN [address], [place], [address], [employer] 07/02/2024 16:56:05 OBGyn Episode No OBEpisode recorded.
[2024-10-28 14:35] LABS: Basophils Absolute Auto 0.1 K/mm3 (0.0-0.1); Eosinophils Absolute Auto 0.1 K/mm3 (0-0.3); Eosinophils Percent Auto 1.2 % (0-4.4); Hematocrit 38.7 % (37.0-47.0); Hemoglobin 12.2 g/dL (12.0-15.0); Immature Granulocyte Absolute 0.02 K/mm3 (0.00-0.031); Immature Granulocyte Percent A 0.4 % (0-0.5); Lymphocytes Absolute Auto 1.49 K/mm3 (0.9-3.2); Lymphocytes Percent Auto 30.5 % (18.3-44.2); Mean Corpuscular HGB Conc 31.5 g/dl (32-36); Mean Corpuscular Hemoglobin 32.2 pg (26-34); Mean Corpuscular Volume 102.1 fl (80-100); Mean Platelet Volume 9.5 fl (7.4-10.4); Monocytes Absolute Auto 0.4 K/mm3 (0.1-0.6); Monocytes Percent Auto 8.8 % (2.6-8.5); Neutrophils Absolute Auto 2.8 K/mm3 (1.3-6.7); Neutrophils Percent Auto 58.1 % (45.5-73.1); Platelet Count Result 263 k/mm3 (150-375); Red Blood Count 3.79 M/mm3 (4.2-5.4); Red Cell Distribution Width 12.7 % (11.5-14.5); White Blood Count 4.9 K/mm3 (4.5-10.0)
[2024-10-28 15:01] LABS: Add Urine Microscopic? YES; Appearance Urine Clear (Clear); Bacteria Urine None Seen /hpf; Bilirubin Urine Negative (Negative); Blood Urine Negative (Negative); Color Urine Yellow (Yellow); Glucose Urine UA Negative (Negative); Ketones Urine Trace mg/dL (Negative); Leukocyte Esterase Ur Trace LEU/UL (Negative); Need Manual Microscopic Reviewed; Nitrate Urine Negative (Negative); Protein Urine Negative (Negative); Specific Grav Ur 1.021 (1.001-1.035); Squamous Epithelial Cell Urine None Seen /hpf (Few); Urobilinogen Urine 0.2 mg/dL (<2.0); WBC Urine 0-5 /hpf (0-3); pH Urine 5.5 (5.0-9.0)
[2024-10-28 19:58] LABS: Alanine Aminotransferase 27 U/L (6-35); Albumin Level 4.2 g/dL (3.5-5.1); Alkaline Phosphatase 160 U/L (38-126); Anion Gap 6 mmol/L (4-12); Aspartate Amino Transferase 38 U/L (14-36); Bilirubin,Total 0.7 mg/dL (0.2-1.3); Blood Urea Nitrogen 29 mg/dL (7-17); Calcium 9.2 mg/dL (8.4-10.2); Carbon Dioxide 29 mmol/L (22-30); Chloride 104 mmol/L (98-107); Cholesterol 169 mg/dL (0-200); Estimated Glomerular Filt Rate 42; Glucose 128 mg/dL (65-110); HDL Direct 66 mg/dL; Sodium 139 mmol/L (137-145); Triglycerides 108 mg/dL (<150)
[2024-10-28 20:08] LABS: LDL Cholesterol Direct 62 mg/dL
[2024-10-28 21:28] LABS: Iron 145 ug/dL (37-170)
[2024-10-28 21:38] LABS: Percent Iron Saturation 46 % (20-50)
[2024-10-28 22:05] LABS: Hemoglobin A1C 5.6 % (<5.7)
== END 2024-10-28 13:45 | disposition home or self-care (01) ==
PROVIDERS: PCP Nurse Practitioner Family; Visit Provider Nurse Practitioner Family
DX: K59.00 Constipation, unspecified (principal); L40.9 Psoriasis, unspecified; D64.9 Anemia, unspecified; Z13.6 Encounter for screening for cardiovascular disorders; R35.0 Frequency of micturition; R73.09 Other abnormal glucose
CPT/HCPCS: 36415; 80053; 80061; 81001; 82607; 82728; 83036; 83540; 83550; 84443; 85025

== ENCOUNTER 2024-11-19 13:47 | Outpatient (CLI) | payer MEDICARE, SELFPAY ==
--- NOTE | ~2024-11-19 | XR_ITS ---
XR shoulder RT min 2V 11/19/2024 14:32 Indication: Right shoulder pain Procedure: 4 views right shoulder Comparison: No prior studies for comparison. Findings: There is polyarticular osteoarthritis, severe in the glenohumeral joint. No significant sof t tissue abnormality. No foreign bodies. Impression: 1: Moderate-severe polyarticular osteoarthritis. Reviewed, dictated and finalized at location A. Impression: 1: Moderate-severe polyarticular osteoarthritis.
--- NOTE | ~2024-11-19 | XR_ITS ---
XR shoulder LT min 2V 11/19/2024 14:32 Indication: Left shoulder pain Procedure: 4 views left shoulder Comparison: No prior studies for comparison. Findings: There is moderate-severe polyarticular osteoarthritis. There is remodeling of the glenoid p rocess. No fracture, subluxation or dislocation. No focal soft tissue abnormality. No foreign bodies. Impression: 1: Moderate-severe polyarticular osteoarthritis of the left shoulder. Reviewed, dictated and finalized at location A. Impression: 1: Moderate-severe polyarticular osteoarthritis of the left shoulder.
--- OUTSIDE RECORDS SUMMARY | 2024-11-19 13:53 | XMS_ITS | Clinical Summary ---
Author Organization [facility] Facility Address [address] [place] [address] Care Team Providers Care Director Telehealth Name Role Phone Unavailable Primary Care Provider [...] 11:30 AM CDT Height 162.6 cm (5' 4) 11/14/2023 11:20 AM CDT Body Mass Index [...]
--- OUTSIDE RECORDS SUMMARY | 2024-11-19 13:53 | XMS_ITS | Data Portability ---
Author Organization [employer] [place], [facility] [employer] Address [address] [facility] [address] [place] [address] Assessment Encounter Date Assessment Date Assessment LastModified [...] Recorded Time Bilateral osteoarthr itis of knees 9013981148466 07 Active 2023 CORDELL ROBIN [employer] [address], [place], [place], [address] [place] [address] , [employer] 4 16:44:27 Muscle weakness 77839449 Active 2023 CORDELL ROB[employer] [address] [place] [address], [place], [address] [place] [address] , [employer] 4 16:44:32 Abnormal gait due to muscle weakness 035043053 Active 2023 CORDELL [employer] [address] [place] [address], [place], [address] [place] [address] , [employer] 4 16:44:35 Rheumatoid arthritis 23787331 Active 2023 CORDELL ROBIN [employer] [address] [place] [address], [address] [place] [address] , [employer] 4 16:44:47 Dizziness and giddiness 626315053 Active 2023 CORDELL ROBIN [employer] [address] [place] [address], [address] [place] [address] , [employer] 4 16:47:06 Problem Notes None recorded. Medical Equipment None Reported. Allergies Allergen ID Allergen Name Allergen Category Reaction Reaction Severity Criticality Documentation Date Start Date Code Code System Note Provider Name and Address Organization Details Recorded Time 48348 codeine medicatio n itching other Not available Not available low 11/08/20242014 2670 RxNorm Sleep lessn ess and itchi ng INSOM OZIEL Not Available [employer] - [employer] - prod 5 11:52:34 60445 lidocaine medicatio n other Not available low 11/08/20242016 6387 RxNorm Extre me shake s EXTRE ME SHAKI NG Not Available [employer] - [employer] - prod 5 11:52:34 86759 Medicinal product acting as adhesive (product) environme nt,medica tion rash Not available high 11/08/20242022 84429 2009 SNOMED Not Available [email or web address] - [employer] - prod 5 11:52:34 Medications Name Sig Start Date Stop Date [...] Updated DateTime 03/18/2024 162.56 cm 23.5 kg/m2 08146.15 g CORDELL GREGORIAMARTÍNEZ [facility] [address] [place] [address], [address], [place] - [employer] [facility] 03/18/2024 15:13:58 Social History None recorded. Functional Status None recorded. Mental Status None recorded. Family History Nothing Reported. Medical History No medical history recorded. Gynecological HistoryNo gynecological history recorded. Obstetrics History GPAL:G 0 P 0 0 0 0 Past Encounters Encounter ID Performer Location Encounter Start Date Encounter Closed Date Diagnosis/Indication Diagnosis SNOMED-CT Code Diagnosis ICD10 Code Diagnosis Note [id number] CORDELLAMOR ROBIN [employer]ACHINE [place] [address] [facility] [address] [place] [address] 03/18/2024 16:52:36 03/18/2024 16:54:36 Bilateral osteoarthritis of knees [id number] 69879 M17.0 -Continue with current medical management and medication s.-Continu e with SN/PT/OT to help with pain, exercise and gaining strength. Muscle weakness 60384340 M62.81 --Continue to work with SN/PT/OT to increase strength and balance. Abnormal g ait due to muscle weakness 034786537 M62.81 -Continue to work with HH SN/PT/OT to increase strength and balance. Rheumatoid arthritis 698 56259 M06.9 -Continue with current medical management and medication s.-Continu e with SN/PT/OT to help with pain, exercise and to gain strength Dizziness and giddiness 205028778 R42 -Continue to work with HH SN/PT/OT to help with balance. History of total knee arthroplasty 8352149465 105 Z96.659 -Continue with current medical management [...] (MEDICARE REPLACEMENT/ ADVANTAGE - HMO) Alissa Hutchinson [id number] Alissa Hutchinson Notes Date Note Type Note [...] No acute findings reported today. CORDELL ROB[employer] [address] [place] [address], [place], [address], [employer] 04/02/2024 08:41:52 OBGyn Episode No OBEpisode recorded.
--- OUTSIDE RECORDS SUMMARY | 2024-11-19 13:53 | XMS_ITS | Referral Summary ---
Author Organization [facility] Address [address] [place] [address] Care Team Providers Care As400 Analyst Name Role Phone Aurea Plaza MD Primary Care Provider + Allergies Active Allergy Reactions Criticality Noted Date Comments Adhesive Rash Medium Codeine Itching,Other (See comments) Low 015 INSOMNIA Lidocaine Other (See comments) Low 01/05/2018 EXTREME SHAKING Medications folic acid (FOLVITE) 1 mg tablet take 1 tablet daily 5 Active gluc rice/chondro rice A/vit C/Mn (GLUCOSAMINE-CH ONDROIT-VIT C-MN) 292-253-88-5 mg tablet daily. 5 Active multivitamin tabletIndicatio [...] on file Legal Sex Female 12:02 PM [employer] P[employer] Gender Identity Not on file Sexual Orientation Not on file Last Filed Vital Signs Vital Sign Reading Time Taken Comments Blood Pressure 116/80 02/19/2019 1:35 PM CDT Pulse 66 02/19/2019 1:35 PM CDT Temperature 37.2 C (98.9 F) 06/21/2018 1:44 PM ASPHALT P[employer]ER Respiratory Rate 16 02/19/2019 1:35 PM CDT Oxygen Saturation 94% 02/19/2019 1:35 PM CDT Inhaled Oxygen Concentration - - Weight 69.9 kg (154 lb) 02/19/2019 1:35 PM CDT Height 162.6 cm (5' 4) 02/19/2019 1:35 PM CDT Body Mass Index 26.43 02/19/2019 1:35 PM CDT Plan of Treatment Not on file Insurance [employer] CHO[employer] MEDICARE PPO [employer] MEDICARE PPO [employer] MEDICARE PPO Care Teams As400 Analyst Relationship Specialty Start Date End Date Aurea Plaza MD PCP - General Family Medicine 05/07/19
--- OUTSIDE RECORDS SUMMARY | 2024-11-19 13:53 | XMS_ITS | Data Portability ---
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 Plan of Treatment Reminders Order Date Submit Date Provider Last Modified By Organization Details Last Modified Time Details Appointments None recorded. Lab vitamin D, 25-hydroxy, total, serum 2022 023 [email or web address] Not available 3 08:23:46 BMP, serum or plasma 2022 023 [email or web address] 1 Not available 3 08:18:31 hepatic function panel, serum 2022 023 [email or web address] Not available 3 08:47:16 ESR (erythrocyt e sedimentati on rate), blood 2022 023 [email or web address] Not available 3 08:47:17 TSH, serum or plasma 2022 023 ESDRAS Not available 3 08:23:30 vitamin B12, serum 2022 023 [email or web address] Not available 3 08:47:16 folate, serum 2022 023 Not available 3 08:47:16 ferritin, serum or plasma 2022 023 [email or web address] Not available 3 08:47:16 iron + total iron-bindin g capacity (TIBC), serum 2022 023 ESDRAS Not available 3 08:23:15 CBC w/ auto diff 2022 023 [email or web address] Not available 3 09:22:54 Referral physical therapist referral - Please call pt to schedule 2024 025 [email or web address] [facility] Occupational [facility], [address] [place], [address], 5 11:05:[address] referral 2024 025 [email or web address] Carleen Chang MD (Dermatology) , [address], [facility], [place], [address], 5 10:57:07 neurologist referral - Please call pt to schedule appt. Thank you 2022 023 [email or web address] Roberto MD, [address] [facility], [address], [place], [address], 3 12:55:17 Procedures None recorded. Surgeries None recorded. Imaging XR, hip, unilateral, 2 or 3 view - Please XR left hip 2024 025 [facility], [address], [place], [address], 5 09:33:27 DEXA [address] (Admitting), [address], [place], [address], 3 15:48:25 Medication Orders hydrocodone 5 mg-acetamin ophen [address] [facility]/Pharmacy #[id number], [address], [place], [address], 5 15:39:19 cephalexin 500 mg capsule 2023 024 [facility]/Pharmacy #[id number], [address], [place], [address], 5 15:02:37 methotrexat e sodium 2.5 mg tablet 2023 024 [id number], [address], [place], [address], 4 14:47:45 duloxetine 60 mg capsule,del ayed release 2023 024 [id number], [address] [place], [address], 4 14:47:48 lidocaine 3 %-hydrocort isone 0.5 % rectal cream [email or web address] [place], [place] [address]Pharmacy #[id number], [address], [place], [address], 4 14:18:10 mupirocin 2 % topical ointment 2022 [email or web address] [place], [place] [address]Pharmacy #[id number], [address] [place], [address], 4 14:16:10 Patient TargetsNo targets recorded. Patient InstructionsNo instructions recorded. Reason for Referral Neurologist Referral for Hao mor Please call pt to schedule appt. Thank you Referring Physician: El Plaza, Family Medicine, Encounter Date: 08/30/2022 Physical Therapist Referral for Pain of left hip joint Please call pt to schedule Referring Physician: Lena Sevilla Family Medicine, Encounter Date: 07/02/2024 Information Support Project Manager Referral for A ctinic keratosis Referring Physician: Lena Sevilla Family Medicine, Encounter Date: 07/02/2024 Results Created Date Observation Date Name Description Value Unit Range Abnormal Flag Note LastModifiedBy Organization Detail LastModifiedTime 09/21/1909/01/2022 DEXA No observ ation record ed. [email or web address] 20[address], [place], [address], 11/22/2022 10:45:09 09/14/19 24 09/13/2023 XR, knee No observ ation record ed. [address] [facility], [place], [address], 11/03/2023 19:49:35 09/27/19 24 09/27/2023 CT, lower extre mity, w/o contr ast No observ ation record ed. [address] [address], [place], [address], 11/03/2023 19:49:55 11/23/19 24 11/23/2023 XR, chest , 2 view No observ ation record ed. [address] [address], [place], [address], 12/12/2023 08:24:29 11/28/19 24 11/27/2023 US, renal No observ ation record ed. [address] [address], [place], [address], 12/12/2023 08:24:52 12/25/19 24 12/25/2023 CT, cervi salvador spine , w/o contr ast No observ ation record ed. [address], [place], [address], 01/17/2024 17:09:59 12/25/19 24 12/25/2023 CT, lumba r spine , w/o contr ast No observ ation record ed. [address], [place], [address], 01/17/2024 17:10:24 02/15/20 24 02/15/2024 XR, knee No observ ation record ed. [email or web address] [address], [place], [address], 02/28/2024 15:19:09 07/13/19 25 07/12/2024 XR, hip, unila teral , 2 or 3 view No observ ation record ed. [address], [place], [address], 07/16/2024 10:17:20 09/03/19 25 09/01/2024 MRI, lumba r spine , w/o contr ast No observ ation record ed. [email or web address] [address], [place], [address], 09/02/2024 12:00:55 09/03/19 25 09/01/2024 MRI, hip, w/o contr ast No observ ation record ed. [email or web address] [address], [place], [address], 09/02/2024 14:13:17 Result Notes None recorded. Problems Name Problem SNOMED Code Status Onset Date Resolution Date Notes Provider Name and Address Organization Details Recorded Time Osteoarthr itis 175069786 Active Not Available [facility] 3 21:17:37 Hematochez ia 180330917 Active 2020 Not Available [employer] 3 21:17:37 Psoriasis 2105129 Active 2020 Not Available [employer] 3 21:17:37 Vitamin D deficiency 97393733 Active 2022 El Plaza MD [address], [facility] [address], [place], [address] , [email or web address] [facility] 3 17:27:42 Iron deficiency anemia 20864138 Active 2022 El Plaza MD [address], [address], [place], [address] , [employer] [facility] [employer] [facility] 3 17:27:49 Cobalamin deficiency 975738963 Active 2022 El Plaza MD [address], [address], [place], [address] , [place] [facility] 3 17:27:57 Fatigue 94353146 Active 2022 El Plaza MD [address], [address], [place], [address] , [place] [facility] 3 17:28:42 Bone pain 25893036 Active 2022 El Plaza MD [address], [address], [place], [address] , [place] [facility] 3 17:31:00 Tremor 59637516 Active 2022 El Plaza MD [address], [address], [place], [address] , [place] [facility] 3 17:33:55 Deviated nasal septum 284854284 Active 2022 Jamal Pak MD [address], [address], [place], [address] , [place] [facility] 3 15:46:22 Folliculit is 99442377 Active 2022 Jamal Pak MD [address], [address], [place], [address] , [place] [facility] 3 15:46:31 Hemorrhoid s 98494104 Active 2022 El Plaza MD [address], [address], [place], [address] , [place] [facility] 3 15:51:32 Psoriatic arthritis 818692796 Active 2022 El Plaza MD [address], [address], [place], [address] , [place] [facility] 3 17:55:14 Pain of bilateral knee joints 3234290352893 04 Active 2023 El Plaza MD [address], [address], [place], [address] , [employer] [place] [facility] 4 16:32:35 Serum creatinine above reference range 310463891 Active 2023 El Plaza MD [address], [address], [place], [address] , [employer] [place] [facility] 4 16:55:11 Cellulitis of lower limb 900290631 Active 2023 VENITA Lancaster [address], [address], [place], [address] , [employer] [place] [employer] [facility] [email or web address] 4 14:45:48 Pain of left hip joint 3583014655791 00 Active 2024 DANIELA Lagos [address], [address], [place], [address] , [employer] [place] [facility] [email or web address] 5 15:26:49 Actinic keratosis 642219954 Active 2024 DANIELA Lagos [address], [address], [place], [address] , [place] [facility] [employer] [facility] [email or web address] 5 15:35:46 Lumbar spondylosi s 106890216 Active 2024 VENITA Lancaster [address], [address], [place], [address] , [place] [email or web address] 5 10:24:12 Problem Notes None recorded. Procedures Surgical History Date Name Laterality Status Provider Name and Address Organization Details Recorded Time 09/22/19 23 hemorrhoidectomy completed Yolis Sanabria NOT[facility] - [facility] [email or web address] 10/04/2022 11:18:19 Imaging Results None recorded. Procedure Notes None recorded. Medical Equipment None Reported. Allergies Allergen ID Allergen Name Allergen Category Reaction Reaction Severity Criticality Documentation Date Start Date Code Code System Note Provider Name and Address Organization Details Recorded Time 21263 lidocaine medicatio n other Not available Not available 08/17/2022 6387 RxNorm Extre or rex ng Not Available [facility] 3 21:19:03 29103 codeine medicatio n Not available Not available Not available 08/17/2022 2670 RxNorm Itchi ng, sleep lessn ess Not Available [facility] 3 21:19:03 66186 adhesive tape environme nt,medica tion rash Not available Not available 08/17/2022 48017 UNK Need paper tape Not Available [facility] 3 21:19:03 Medications Name Sig Start [...] Available methotrex ate sodium 2.5 mg tablet Take 10 tablets every week by oral route. 2024 active Not Available Not Available Not Avai lable Kenalog 10 mg/mL suspensio n for injection [...] the office by the doctor 12/23 completed [facility]: [id number] 001 Not Available Not Available Not Available [...] administ ered by the provider 08/19 completed [facility]: 0409-427 6-17 Not Available Not Available Not Available Otezla 30 mg tablet TK 1 TABLET BY MOUTH TWICE DAILY 2023 active Not Available Not Available Not Avai lable magnesium 400 mg (as magnesium oxide) tablet Take 1 tablet every day by oral route in the evening. 04/29 completed Not Available Not Available Not Available Vitals Date Recorded Body weight Body mass index (BMI) Body height Body temperature Respiratory rate Heart rate Oxygen saturation Oxygen saturation in Arterial blood by Pulse oximetry Systolic blood pressure Diastolic blood pressure Provider Name and Address Organization Details Last Updated DateTime 5 60171.5 5 g 23.8 kg/m2 162.56 cm 97.3 [degF] 24 /min 79 /min 97 % 97 % 150 mm[Hg] 88 mm[Hg] Gretchen Zamorano RN [place] [facility] [employer] 5 15:07:15 Date Recorded Body height Body mass index (BMI) Body weight Body temperature Heart rate Oxygen saturation Oxygen saturation in Arterial blood by Pulse oximetry Systolic blood pressure Diastolic blood pressure Provider Name and Address Organization Details Last Updated DateTime 3 162.56 cm 25.4 kg/m2 53484.6 7 g 98.6 [degF] 76 /min 99 % 99 % 128 mm[Hg] 84 mm[Hg] Ramon Sebastien [facility] [employer] [facility] 3 17:16:44 Date Recorded Body height Body mass index (BMI) Body weight Body temperature Provider Name and Address Organization Details Last Updated DateTime 09/08/2022 162.56 cm 25.1 kg/m2 29937.49 g 97.6 [degF] El Sukumar [facility] [employer] [facility] 09/08/2022 15:30:10 Date Recorded Body height Body mass index (BMI) Body weight Body temperature Heart rate Oxygen saturation Oxygen saturation in Arterial blood by Pulse oximetry Systolic blood pressure Diastolic blood pressure Provider Name and Address Organization Details Last Updated DateTime 3 162.56 cm 25.1 kg/m2 80302.4 9 g 97.9 [degF] 84 /min 96 % 96 % 116 mm[Hg] 80 mm[Hg] Dariana Fernandes MA [facility] [employer] [facility] 3 15:41:23 Date Recorded Body weight Body temperature Heart rate Oxygen saturation Oxygen saturation in Arterial blood by Pulse oximetry Systolic blood pressure Diastolic blood pressure Provider Name and Address Organization Details Last Updated DateTime 4 69836.6 g 97.5 [degF] 64 /min 94 % 94 % 122 mm[Hg] 88 mm[Hg] Bubba Tang RN [facility] [employer] [facility] 4 14:15:46 Social History Question Answer Notes LastModified by Organization Details LastModified Time Tobacco Smoking Status Never Smoker Not Available [employer] 08/17/2022 21:17:11 Are You Blind Or Do You Have Difficulty Seeing? No Information not available 07/02/2024 What Is Your Level Of Caffeine Consumption? None MIGRATION.300 [id number] Information not available 08/17/2022 In The 14 Days Before Symptom Onset, Have You Had Close Contact With A [facility] While That Case Was Ill? No [id number] Information not available 08/17/2022 In The 14 Days Before Symptom Onset, Have You Had Close Contact With A Person Who Is Under Investigation For COVID-19 While That Person Was Ill? No MIGRATION.0301 [id number] Information not available 08/17/2022 Are You Deaf Or Do You Have Serious Difficulty Hearing? Yes Hearing Aids That Do Not Work Information not available 07/02/2024 What Type Of Diet Are You Following? REGULAR MIGRATION.0301 [id number] Information not available 08/17/2022 Which Illicit Or Recreational Drugs Have You Used? None MIGRATION.0301 [id number] Information not available 08/17/2022 Have There Been Any Changes To Your Family Or Social Situation? No Information not available 07/02/2024 Where Do You Live? SingleLevelHouse Information not available 07/02/2024 What Was The Date Of Your Most Recent Tobacco Screening? 12/23/2020 MIGRATION.0301 [id number] Information not available 08/17/2022 Do You Have [...] Traveled Abroad? No Information not available 07/02/2024 Do You Have Difficulty Walking Or Climbing Stairs? Yes Walks With Three Wheeled Walker Information not available 07/02/2024 Sex: Unknown Functional Status Question Answer Note LastModified by Organizat ion Details LastModified Time What is your level of alcohol consumption? None MIGRATION.83174 77931 Information not available 08/17/2022 Do you or have you ever used smokeless tobacco? Never used smokeless tobacco MIGRATION.34745 21277 Information not available 08/17/2022 Are you currently [...] available 07/02/2024 What is your occupation? retired MIGRATION.45283 32151 Information not available 08/17/2022 Do you have difficulty dressing or bathing? No Information not available 07/02/2024 Do you or have you ever used e-cigarettes or vape? Never used electronic cigarettes MIGRATION.04267 03236 Information not available 08/17/2022 What is your exercise level? None MIGRATION.42780 03790 Information not available 08/17/2022 Mental Status Question Answer Note LastModified by Organizat ion Details LastModified Time Do you feel stressed (tense, restless, nervous, or anxious, or unable to sleep at night)? [id number] Information not available 07/02/2024 Do you have difficulty concentrating, remembering or making decisions? No Information no t available 07/02/2024 Family History Relationship Description Onset Age of this Age Resolved Age Notes LastModified by Organization Details LastModified Time Mother Hypertensive disorder MIGRATION.119 [id number] Not available 08/17/2022 21:17:13 Mother Diabetes mellitus MIGRATION.271 [id number] Not available 08/17/2022 21:17:13 Medical History Condition [...] SNOMED-CT Code Diagnosis ICD10 Code Diagnosis Note [id number] El Plaza MD [facility] [address] [facility] [address] [facility] [place] [address] 12/17/2020 00:00:00 12/17/2020 11:47:16 [id number] JULIAN Bennett [facility] [place] [address] [facility] [address] [place] [address] 12/23/2020 00:00:00 12/23/2020 13:14:58 [id number] El Plaza MD [facility] [place] [address] [place] [address] 12/30/2020 00:00:00 01/15/2021 07:54:56 [id number] El Plaza MD [facility] [place] [address] [place] [address] 01/14/2021 00:00:00 01/14/2021 15:34:07 [id number] JULIAN Bennett [facility] [place] [address] [place] [address] 02/04/2021 00:00:00 02/04/2021 14:46:10 [id number] JULIAN Markham [facility] [place] [address] [place] [address] 03/15/2021 00:00:00 03/15/2021 17:07:40 [id number] El Plaza MD [facility] [place] [address] [place] [address] 08/19/2021 00:00:00 09/15/2021 18:51:12 [id number] El Plaza MD [facility] [place] [address] [place] [address] 10/25/2021 00:00:00 10/25/2021 13:24:38 [id number] El Plaza MD [facility] [place] [address] [place] [address] 11/22/2021 00:00:00 12/15/2021 10:56:57 [id number] El Plaza MD [facility] [place] [address] [place] [address] 12/27/2021 00:00:00 01/14/2022 12:59:25 [id number] El Plaza MD [facility] Primary [facility] [place] [address] [facility] [address] [place] [address] 01/17/2022 00:00:00 01/17/2022 14:48:08 [id number] El Plaza MD [facility] Primary Care [place] gonzá[place] [address] [facility] [address] [place] [address] 03/01/2022 00:00:00 03/01/2022 14:58:10 [id number] El Plaza MD [facility] Primary Care Zachary emmanuele [address] [facility] [address] [place] [address] 06/28/2022 00:00:00 06/28/2022 09:44:40 [id number] El Plaza MD [facility] Primary Care [place] gonzáles [address] [place] [address] [address] [place] [address] 07/28/2022 00:00:00 07/28/2022 11:45:26 [id number] El Plaza MD [facility] Primary Care Zachary gonzáles [address] [facility] [address] [place] [address] 08/30/2022 17:08:33 08/30/2022 17:43:33 Vitamin D deficiency 66590096 E55.9 Iron defic iency anemia 39972115 D50.9 Cobalamin deficiency 190 397931 E53.8 Psoriasis 8428460 L40.9 Z79.899 Fatigue 43722174 R53.83 Bone pain 12029738 M89.8 X9 N95.1 Tremor 38120262 R25.1 R27.8 ? parkinsoni sm Menopausal and postmenopausal disorders 214490592 N95.9 [id number] Jamal Pak MD [facility] ENT Maria Elena Richard [address] [place] [address] 09/08/2022 15:20:39 09/08/2022 15:52:07 Deviated nasal septum 924712719 J34.2 Folliculitis 68395295 L7 3.9 [id number] El Plaza MD [facility] Primary Care [address] [place] [address] 10/05/2022 15:19:59 10/05/2022 15:57:58 Hemorrhoids 03230040 K64.9 [id number] VENITA Lancaster [facility] Primary Care [address] [place] [address] 04/29/2024 14:02:13 04/29/2024 15:33:01 Psoriasis 9641384 L40.9 Otezla paperwork for the upcoming year filled out and handed back to patient. Renewal of prescription 186172616 Z76.0 Psoriatic arthritis 1563 69135 L40.50 Cellulitis of lower limb 112210729 L03.119 Will treat as listed below, discussed antibiotic therapy with patient. Patient aware to take medication with food and to drink plenty of water while taking this medication .Patient instructed to contact surgeon today regarding symptoms and treatment of cellulitis . Osteoarthritis 721851793 M19.90 Not well controlled , per patient.Di scussed pain management referral with patient, patient refuses at this time. [id number] Edward Corbett MD [address] [address] 07/02/2024 14:44:47 07/03/2024 10:37:40 Pain of left hip joint 3087603270 07867 M25.552 Actinic keratosis 900028 007 L57.0 Right breast, 7 o'clock Health Concerns Section Related Observation LastModified by Organization Detai ls LastModified Time None Recorded Concern Status LastModified by Organization Details LastModified Time None Recorded Advance Directives Directive None Recorded Payers Encounter Date Sequence Insurance Name Policy Number Policy Hernandez Covered Member ID Hernandez Member ID Guarantor Name 08/30/2022 1 [employer] (MEDICARE REPLACEMENT/ ADVANTAGE - HMO) Alissa Hutchinson [id number] Alissa Hutchinson 09/08/2022 1 [employer] (MEDICARE REPLACEMENT/ ADVANTAGE - HMO) Alissa Hutchinson [id number] Alissa Hutchinson 10/05/2022 1 [employer] (MEDICARE REPLACEMENT/ ADVANTAGE - HMO) Alissa Hutchinson [id number] Alissa Hutchinson 04/29/2024 1 [employer] (MEDICARE REPLACEMENT/ ADVANTAGE - HMO) Alissa Hutchinson [id number] Alissa Hutchinson 07/02/2024 1 [employer] (MEDICARE REPLACEMENT/ ADVANTAGE - HMO) Alissa Hutchinson [id number] Alissa Hutchinson Notes Date Note Type Note [...] on September 21 El Plaza MD [address], [address], [place], [address], [employer] 09/16/2022 11:05:22 09/08/2022 text/html this patient reports that her nose runs and that she has bleeding and left-sided nasal obstruction this has been going on for years but she did fall 2 months ago and landed on her face. She has been using Vaseline but no nwiw-wvp-gfnkamb medications she also reports that her voice changes some time to time that she has occasional throat pain as well. She also reports that she has occasional right ear pain which lasts for brief periods. Jamal Pak MD [address], [place], [address], [employer] 09/08/2022 15:47:06 10/05/2022 text/html currently on ote zla and is having some sores on face, she blames it on stress regarding surgery had hemorrhoid surgery on 09/22, still bleeding since then, saw Dr. Martinez on Monday in f/u, was told it was healing. She has pain with bowel movements and has f/u with Dr. Martinez in 2 weeks. El Plaza MD [address] [facility], [facility] [address], [place], [address], [employer] 10/14/2022 15:28:16 04/29/2024 text/html Patient is a [...] shortness of breath. VENITA Lancaster [address], [facility] [address], [place], [address], [employer] 04/29/2024 20:58:40 07/02/2024 text/html Alissa Hutchinson i [...] spot on her right breast Lena Sevilla, [employer] [address] [facility], [facility] [address], [place], [address], [facility] [employer] 07/02/2024 16:56:05 OBGyn Episode No OBEpisode recorded.
--- OUTSIDE RECORDS SUMMARY | 2024-11-19 13:53 | XMS_ITS | Clinical Summary ---
Author Organization [facility] Address [address] [place] [address] Care Team Providers Care Line Service Supervisor Name Role Phone Aurea Plaza MD Primary Care Provider + Allergies Active Allergy Reactions Criticality Noted Date Comments Adhesive Rash Medium Codeine Itching,Other (See comments) Low 015 INSOMNIA Lidocaine Other (See comments) Low 01/05/2018 EXTREME SHAKING Medications folic acid (FOLVITE) 1 mg tablet take 1 tablet daily 5 Active gluc rice/chondro rice A/vit C/Mn (GLUCOSAMINE-CH ONDROIT-VIT C-MN) 118-435-11-5 mg tablet daily. 5 Active multivitamin tabletIndicatio [...] 08/23/2017 Surgical History Surgery Date Site/Laterality Comments UT NEUROPLASTY &/TRANSPOS ME MARLEN NRV CARPAL TUNNE Neuroplasty Decompression Median Nerve At Carpal Tunnel - (Added by TW Conv) UT STOT/TOT HYSTERECTOMY AFT ER DELIVERY Hysterectomy - (Added by TW Conv) UT COLECTOMY PARTIAL W/ANASTOMOSIS Partial Colectomy - (Added by TW Conv) UT REPAIR RECTOCELE SEPARATE PROCEDURE Rectocele Repair - (Added by TW Conv) UT PARAVAGINAL DEFECT REPAIR OPEN ABDOMINAL APPR Paravaginal Defect Repair - (Added by TW Conv) KNEE SURGERY Knee Surgery - (Added by TW Conv) UT EXPLORATORY LAPAROTOMY CELIOTOMY W/WO BIOPSY SPX Exploratory Laparotomy - (Added by TW Conv) Medical History Medical History Date Comments Arthritis Osteoarthritis Scoliosis Family History Medical History Relation Name Comments Diabetes Mother Family history of diabetes mellitus - (Added by TW Marilynn) Relation Name Status Comments Mother Social History Tobacco Use Types Packs/Day Years Used Date Smoking Tobacco: Never Smokeless Tobacco: Never Comments Unknown Sex and Gender Information Value Date Recorded Sex Assigned at Not on file Legal Sex Female 12:02 PM [employer] Gender Identity Not on file Sexual Orientation Not on file Obstetrics History Last Filed Vital Signs Vital Sign Reading Time Taken Comments Blood Pressure 116/80 02/19/2019 1:35 PM CDT Pulse 66 02/19/2019 1:35 PM CDT Temperature 37.2 C (98.9 F) 06/21/2018 1:44 PM [employer] Respiratory Rate 16 02/19/2019 1:35 PM CDT Oxygen Saturation 94% 02/19/2019 1:35 PM CDT Inhaled Oxygen Concentration - - Weight 69.9 kg (154 lb) 02/19/2019 1:35 PM CDT Height 162.6 cm (5' 4) 02/19/2019 1:35 PM CDT Body Mass Index 26.43 02/19/2019 1:35 PM CDT Plan of Treatment Not on file Insurance [employer] PPO [employer] PPO [employer] CHOICE MEDICARE PPO Care Teams Line Service Supervisor Relationship Specialty Start Date End Date Aurea Plaza MD PCP - General Family Medicine 05/07/19
--- OUTSIDE RECORDS SUMMARY | 2024-11-19 13:53 | XMS_ITS | Clinical Summary ---
Author Organization [facility] Address [address] [place] [address] Care Team Providers Care Technologist Development Name Role Phone Rajesh Palmer MD Unavailable Aurea Plaza MD Primary Care Provider [phone] Source Comments [facility],non-owned Affiliates and Associated Physician Practices is amultiple site organization consisting of ambulatory clinics and hospital sitesin [place], [place], [place] and [place]. This disclosure is being madepursuant to the Care Everywhere program and may not contain all information available regarding this patient. 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 [id number] PCP - General 10/11/22 [place] [id number] [facility] [address] [address] Orthopedic Surgery 01/13/17
--- OUTSIDE RECORDS SUMMARY | 2024-11-19 13:53 | XMS_ITS | CONTINUITY OF CARE DOCUMENT ---
Author Name cristina evans Address Unknown Organization [facility] Address [address] [place] [address] [address] [place] [address] Phone [phone] Care Team Providers Care Office Mail Clerk Name Role Phone Roel Landa MD Unavailable [phone] SYDNEY MARTINO MD Unavailable INSURANCE PROVIDERS Payer name Policy type / Coverage type [place] [employer] party ID [facility] insurance [employer] [id number] [place] [place] [employer] Medicare [id number]
== END 2024-11-19 13:48 | disposition home or self-care (01) ==
PROVIDERS: PCP Nurse Practitioner Family; Visit Provider Pain Medicine Pain Medicine
DX: M19.011 Primary osteoarthritis, right shoulder (principal); M19.012 Primary osteoarthritis, left shoulder
CPT/HCPCS: 73030

== ENCOUNTER 2025-01-10 14:25 | Outpatient (CLI) | payer MEDICARE, SELFPAY ==
--- NOTE | ~2025-01-10 | XR_ITS ---
EXAM/ PROCEDURE: XR knee LT 3V - 01/10/2025 12:15 CDT HISTORY: 79 years old Female with Z96.652 - Presence of left artificial knee joint COMPARISON: None available TECHNIQUE: Three view(s) FINDINGS/ IMPRESSION: Total knee arthroplasty with intact hardware and no loosening. Joint effusion seen. There are no fractures or dislocations. Reviewed, dictated and finalized at location A.
--- NOTE | ~2025-01-10 | XR_ITS ---
EXAM/ PROCEDURE: XR hip LT 2V w AP pelvis - 01/10/2025 12:15 CDT HISTORY: 79 years old Female with M25.552 - Pain in left hip, NO KNOWN INURY COMPARISON: None available TECHNIQUE: Three view(s) FINDINGS/ IMPRESSION: Intact right hip arthroplasty with no loosening or fracture. There are no fractures or dislocations.Joint space narrowing, subchondral sclerosis, subchondral cyst formation and osteophyte formation, compatible with mild osteoarthritis. Reviewed, dictated and finalized at location A.
--- OUTSIDE RECORDS SUMMARY | 2025-01-10 11:57 | XMS_ITS | Clinical Summary ---
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 [employer] Name Role Phone Aurea Plaza MD Primary [...] P M CDT Height 162.6 cm (5' 4) 03/20/2023 1:54 PM CDT Body Mass Index [...] 5 season) 2024 11/26/2020, 11/05/2020 PHQ-2 (Physician [place]) 06/19/2024 03/20/2023 Meningococcal B Vaccine Aged Out No l onger eligible based on patient's age to complete this topic Meningococcal Vaccine Aged Out No renee leydi eligible based on patient's age to complete this topic RSV Immunizations Under 20 Months Aged Out No longer eligible b ased on patient's age to complete this topic Insurance [employer] Care Teams [employer]orer [employer] Relationship Specialty Start Date End Date Aurea Plaza MD [address] [place] [address] PCP - General FAMILY PRACTICE 09/13/22
--- OUTSIDE RECORDS SUMMARY | 2025-01-10 11:57 | XMS_ITS | Data Portability ---
Author Organization [place] [facility], Main Office Address [address] [place] [address] Care Team Providers Care Medical Office Administrator Name Role Phone EL PLAZA Primary Care Provider [phone] EL PLAZA Referring Provider Assessment No assessment recorded. Plan of Treatment Reminders Order Date Submit Date Provider Last Modified By Organization Details Last Modified Time Details Appointments None recorded. Lab vitamin D, 25-hydroxy, total, serum 2022 023 [email or web address] Not available 3 08:23:46 BMP, serum or plasma 2022 023 1 Not available 3 08:18:31 hepatic function panel, serum 2022 023 [email or web address] Not available 3 08:47:16 ESR (erythrocyt e sedimentati on rate), blood 2022 023 [email or web address] Not available 3 08:47:17 TSH, serum or plasma 2022 023 ESDRAS Not available 3 08:23:30 vitamin B12, serum 2022 023 [email or web address] Not available 3 08:47:16 folate, serum 2022 023 [email or web address] Not available 3 08:47:16 ferritin, serum or plasma 2022 023 [email or web address] Not available 3 08:47:16 iron + total iron-bindin g capacity (TIBC), serum 2022 023 ESDRAS Not available 3 08:23:15 CBC w/ auto diff 2022 023 [email or web address] Not available 3 09:22:54 Referral physical therapist referral - Please call pt to schedule 2024 025 [facility], [address] [place], [address], 5 11:05:[address] referral 2024 025 [email or web address] Carleen Chang MD (Dermatology) , [address], [facility] [place] [place], [address], 5 10:57:07 neurologist referral - Please call pt to schedule appt. Thank you 2022 023 [email or web address] Roberto MD, [address] [facility], [address], [place], [address], 3 12:55:17 Procedures None recorded. Surgeries None recorded. Imaging XR, hip, unilateral, 2 or 3 view - Please XR left hip 2024 025 [facility], [address], [place], [address], 5 09:33:27 DEXA [address] (Admitting), [address], [place], [address], 3 15:48:25 Medication Orders hydrocodone 5 mg-acetamin ophen 325 mg tablet 2024 025 [facility]/Pharmacy #[id number], [address] , [place], [address], 5 15:39:19 cephalexin 500 mg capsule 2023 024 [id number], [address], [place], [address], 5 15:02:37 methotrexat e sodium 2.5 mg tablet 2023 024 [id number] [address] [place], [address], 4 14:47:45 duloxetine 60 mg capsule,del ayed release 2023 024 [id number], [address] [place], [address], 4 14:47:48 lidocaine 3 %-hydrocort isone 0.5 % rectal cream 2022 [address]23 [email or web address] [id number], [address], [place], [address], 4 14:18:10 mupirocin 2 % topical ointment 20[email or web address] [place], [place] [address]Pharmacy #[id number], [address] [place], [address], 4 14:16:10 Patient TargetsNo targets recorded. Patient InstructionsNo instructions recorded. Reason for Referral Neurologist Referral for Hao mor Please call pt to schedule appt. Thank you Referring Physician: El Plaza, Family Medicine, Encounter Date: 08/30/2022 Physical Therapist Referral for Pain of left hip joint Please call pt to schedule Referring Physician: Lena Sevilla [facility], Encounter Date: 07/02/2024 Demurrage Worker Referral for A ctinic keratosis Referring Physician: Lena Sevilla Family [facility], Encounter Date: 07/02/2024 Results Created Date Observation Date Name Description Value Unit Range Abnormal Flag Note LastModifiedBy Organization Detail LastModifiedTime 09/21/1909/01/2022 DEXA No observ ation record ed. [email or web address] 2022 [address], [place], [address], 11/22/2022 10:45:09 09/14/19 24 09/13/2023 XR, knee No observ ation record ed. [address], [place], [address], 11/03/2023 19:49:35 09/27/19 24 09/27/2023 CT, lower extre mity, w/o contr ast No observ ation record ed. [address] [facility], [place], [address], 11/03/2023 19:49:55 11/23/19 24 11/23/2023 XR, chest , 2 view No observ ation record ed. [address] [address], [place], [address], 12/12/2023 08:24:29 11/28/19 24 11/27/2023 US, renal No observ ation record ed. [address], [place], [address], 12/12/2023 08:24:52 12/25/19 24 12/25/2023 CT, cervi salvador spine , w/o contr ast No observ ation record ed. [address], [place], [address], 01/17/2024 17:09:59 12/25/19 24 12/25/2023 CT, lumba r spine , w/o contr ast No observ ation record ed. [address], [place], [address], 01/17/2024 17:10:24 02/15/20 24 02/15/2024 XR, knee No observ ation record ed. [email or web address] [address] [facility], [place], [address], 02/28/2024 15:19:09 07/13/19 25 07/12/2024 XR, hip, unila teral , 2 or 3 view No observ ation record ed. [address] [facility], [place], [address], 07/16/2024 10:17:20 09/03/19 25 09/01/2024 MRI, lumba r spine , w/o contr ast No observ ation record ed. [address] [address], [place], [address], 09/02/2024 12:00:55 09/03/19 25 09/01/2024 MRI, hip, w/o contr ast No observ ation record ed. [email or web address] [facility], [place], [address], 09/02/2024 14:13:17 11/20/19 25 11/19/2024 XR, shoul maynor, 2 or more view No observ ation record ed. [email or web address] [address], [place], [address], 11/20/2024 10:21:18 Result Notes None recorded. Problems Name Problem SNOMED Code Status Onset Date Resolution Date Notes Provider Name and Address Organization Details Recorded Time Osteoarthr itis 602336815 Active Not Available [employer] 3 21:17:37 Hematochez ia 660076142 Active 2020 Not Available [employer] 3 21:17:37 Psoriasis 2203162 Active 2020 Not Available [employer] 3 21:17:37 Vitamin D deficiency 00566441 Active 2022 El Plaza MD [address] [place] [address], [facility] [address], [place], [address] , [facility] [employer] [facility] 3 17:27:42 Iron deficiency anemia 28579761 Active 2022 El Plaza MD [address], [address], [place], [address] , [place] [facility] 3 17:27:49 Cobalamin deficiency 716515802 Active 2022 El Plaza MD [address], [address], [place], [address] , [facility] 3 17:27:57 Fatigue 73863607 Active 2022 El Plaza MD [address], [address], [place], [address] , [place] [facility] 3 17:28:42 Bone pain 14127726 Active 2022 El Plaza MD [address], [address], [place], [address] , [place] [facility] 3 17:31:00 Tremor 88219586 Active 2022 El Plaza MD [address], [address], [place], [address] , [place] [facility] 3 17:33:55 Deviated nasal septum 826545545 Active 2022 Jamal Pak MD [address], [address], [place], [address] , [facility] 3 15:46:22 Folliculit is 77143404 Active 2022 Jamal Pak MD [address], [address], [place], [address] , [place] [facility] 3 15:46:31 Hemorrhoid s 94176352 Active 2022 El Plaza MD [address], [address], [place], [address] , [place] [facility] 3 15:51:32 Psoriatic arthritis 279984332 Active 2022 El Plaza MD [address], [address], [place], [address] , [employer] [facility] [employer] [facility] 3 17:55:14 Pain of bilateral knee joints 7190048871587 04 Active 2023 El Plaza MD [address], [address], [place], [address] , [employer] [facility] 4 16:32:35 Serum creatinine above reference range 840277179 Active 2023 El Plaza MD [address], [address], [place], [address] , [employer] [facility] 4 16:55:11 Cellulitis of lower limb 441123307 Active 2023 VENITA Lancaster [address], [address], [place], [address] , [employer] 4 14:45:48 Pain of left hip joint 1176378831849 00 Active 2024 DANIELA Lagos [address], [address], [place], [address] , [employer] [facility] 5 15:26:49 Actinic keratosis 700425436 Active 2024 DANIELA Lagos [address], [address], [place], [address] , [employer] [facility] [employer] [facility] 5 15:35:46 Lumbar spondylosi s 491351086 Active 2024 VENITA Lancaster [address], [address], [place], [address] , [employer] [facility] [employer] [facility] 5 10:24:12 Problem Notes None recorded. Procedures Surgical History Date Name Laterality Status Provider Name and Address Organization Details Recorded Time 09/22/19 23 hemorrhoidectomy completed Yolis Lópeziner [place] [employer] [facility] [employer] [facility] 10/04/2022 11:18:19 Imaging Results None recorded. Procedure Notes None recorded. Medical Equipment None Reported. Allergies Allergen ID Allergen Name Allergen Category Reaction Reaction Severity Criticality Documentation Date Start Date Code Code System Note Provider Name and Address Organization Details Recorded Time 99149 lidocaine medicatio n other Not available Not available 08/17/2022 6387 RxNorm Extre me shaki ng Not Available [facility] 3 21:19:03 40076 codeine medicatio n Not available Not available Not available 08/17/2022 2670 RxNorm Itchi ng, sleep lessn ess Not Available [facility] 3 21:19:03 44823 adhesive tape environme nt,medica tion rash Not available Not available 08/17/2022 48147 UNK Need paper tape Not Available [facility] 3 21:19:03 Medications Name Sig Start Date [...] administ ered by the provider 08/19 completed [facility]: 0003-049 4-20 Not Available Not Available Not [...] office by the doctor 12/23 completed NDC: 31915569 001 Not Available Not Available Not Available [...] by the provider 08/19 completed NDC: 0409-427 6-17 Not Available Not Available Not [...] in Arterial blood by Pulse oximetry Systolic And Diastolic Provider Name and Address Organization Details Last Updated DateTime 5 44501.5 5 g 23.8 kg/m2 162.56 cm 97.3 [degF] 8 24 /min 79 /min 97 % 97 % 150/88 mm[Hg] Gretchen Zamorano RN [facility] 5 15:07:15 Date Recorded Body height Body mass index (BMI) Body weight Body temperature Heart rate Oxygen saturation Oxygen saturation in Arterial blood by Pulse oximetry Systolic And Diastolic Provider Name and Address Organization Details Last Updated DateTime 3 162.56 cm 25.4 kg/m2 87296.6 7 g 98.6 [degF] 76 /min 99 % 99 % 128/84 mm[Hg] Ramon Crowe [facility] [employer] [facility] 3 17:16:44 Date Recorded Body height Body mass index (BMI) Body weight Body temperature Provider Name and Address Organization Details Last Updated DateTime 09/08/2022 162.56 cm 25.1 kg/m2 53495.49 g 97.6 [degF] El Patino [facility] [employer] [facility] 09/08/2022 15:30:10 Date Recorded Body height Body mass index (BMI) Body weight Body temperature Heart rate Oxygen saturation Oxygen saturation in Arterial blood by Pulse oximetry Systolic And Diastolic Provider Name and Address Organization Details Last Updated DateTime 3 162.56 cm 25.1 kg/m2 11943.4 9 g 97.9 [degF] 84 /min 96 % 96 % 116/80 mm[Hg] Dariana Fernandes MA [facility] 3 15:41:23 Date Recorded Body weight Body temperature Heart rate Oxygen saturation Oxygen saturation in Arterial blood by Pulse oximetry Systolic And Diastolic Provider Name and Address Organization Details Last Updated DateTime 4 92113.6 g 97.5 [degF] 64 /min 94 % 94 % 122/88 mm[Hg] Bubba Tang RN [place] [employer] [facility] 4 14:15:46 Social History Question Answer Notes LastModified by Organization Details LastModified Time Tobacco Smoking Status Never Smoker Not Available [employer] 08/17/2022 21:17:11 Are You Blind Or Do You Have Difficulty Seeing? No Information not available 07/02/2024 What Is Your Level Of Caffeine Consumption? None MIGRATION.0301 [id number] Information not available 08/17/2022 In The 14 Days Before Symptom Onset, Have You Had Close Contact With A Laboratory-confi rmed COVID-19 While That Case Was Ill? No MIGRATION.0301 [id number] Information not available 08/17/2022 In The 14 Days Before Symptom Onset, Have You Had Close Contact With A Person Who Is Under Investigation For COVID-19 While That Person Was Ill? No MIGRATION.0301 [id number] Information not available 08/17/2022 Are You Deaf Or Do You Have Serious Difficulty Hearing? Yes Hearing Aids That Do Not Work Information not available 07/02/2024 What Type Of Diet Are You Following? REGULAR MIGRATION.0301 077316 Information not available 08/17/2022 Which Illicit Or Recreational Drugs Have You Used? None MIGRATION.0301 [id number] Information not available 08/17/2022 Have There Been Any Changes To Your Family Or Social Situation? No Information not available 07/02/2024 Where Do You Live? SingleLevelHouse Information not available 07/02/2024 What Was The Date Of Your Most Recent Tobacco Screening? 12/23/2020 MIGRATION.0301 [id number] Information not available 08/17/2022 Do You Have [...] is your level of alcohol consumption? None MIGRATION.30691 40501 Information not available 08/17/2022 Do you or have you ever used smokeless tobacco? Never used smokeless tobacco MIGRATION.82210 55267 Information not available 08/17/2022 Are you currently [...] available 07/02/2024 What is your occupation? retired MIGRATION.49215 81891 Information not available 08/17/2022 Do you have difficulty dressing or bathing? No Information not available 07/02/2024 Do you or have you ever used e-cigarettes or vape? Never used electronic cigarettes MIGRATION.10798 75651 Information not available 08/17/2022 What is your exercise level? None MIGRATION.10491 07848 Information not available 08/17/2022 Mental Status Question Answer Note LastModified by Organizat ion Details LastModified Time Do you feel stressed (tense, restless, nervous, or anxious, or unable to sleep at night)? HF88194-0 Information not available 07/02/2024 Do you have difficulty concentrating, remembering or making decisions? No Information no t available 07/02/2024 Family History Relationship Description Onset Age of this Age Resolved Age Notes LastModified by Organization Details LastModified Time Mother Hypertensive disorder MIGRATION.170 [id number] Not available 08/17/2022 21:17:13 Mother Diabetes mellitus MIGRATION.549 [id number] Not available 08/17/2022 21:17:13 Medical History Condition [...] SNOMED-CT Code Diagnosis ICD10 Code Diagnosis Note [id number] El Plaza MD [facility] [place] [address] [place] [address] 12/17/2020 00:00:00 12/17/2020 11:47:16 [id number] JULIAN Bennett S_[facility] [place] [address] [facility] [address] [place] [address] 12/23/2020 00:00:00 12/23/2020 13:14:58 [id number] El Plaza MD [facility] [place] [address] [place] [address] 12/30/2020 00:00:00 01/15/2021 07:54:56 [id number] El Plaza MD [facility] [place] [address] [place] [address] 01/14/2021 00:00:00 01/14/2021 15:34:07 [id number] JULIAN Bennett S[facility] [place] [address] [facility] [address] [place] [address] 02/04/2021 00:00:00 02/04/2021 14:46:10 [id number] JULIAN Markham S_[facility] [place] [address] [place] [address] 03/15/2021 00:00:00 03/15/2021 17:07:40 [id number] El Plaza MD [facility] [place] [address] [place] [address] 08/19/2021 00:00:00 09/15/2021 18:51:12 [id number] lE Plaza MD [facility] [place] [address] [place] [address] 10/25/2021 00:00:00 10/25/2021 13:24:38 [id number] El Plaza MD [facility] [place] [address] [place] [address] 11/22/2021 00:00:00 12/15/2021 10:56:57 [id number] El Plaza MD [facility] [place] [address] [place] [address] 12/27/2021 00:00:00 01/14/2022 12:59:25 [id number] El Plaza MD [facility] Primary [facility] [place] [address] [place] [address] 01/17/2022 00:00:00 01/17/2022 14:48:08 [id number] El Plaza MD [facility] [place] [address] [place] [address] [address] [place] [address] 03/01/2022 00:00:00 03/01/2022 14:58:10 [id number] El Plaza MD [facility] Primary [facility] [place] [address] [place] [address] [address] [place] [address] 06/28/2022 00:00:00 06/28/2022 09:44:40 [id number] El Plaza MD [facility] Primary [facility] [place] [address] [place] [address] [address] [place] [address] 07/28/2022 00:00:00 07/28/2022 11:45:26 [id number] El Plaza MD [facility] Primary [facility] [place] [address] [place] [address] [address] [place] [address] 08/30/2022 17:08:33 08/30/2022 17:43:33 Vitamin D deficiency 34245272 E55.9 Iron defic iency anemia 36133117 D50.9 Cobalamin deficiency 190 937990 E53.8 Psoriasis 7357332 L40.9 Z79.899 Fatigue 38750497 R53.83 Bone pain 21599270 M89.8 X9 N95.1 Tremor 71577241 R25.1 R27.8 ? parkinsoni sm Menopausal and postmenopausal disorders 267854990 N95.9 [id number] Jamal Pak MD [facility] [place] [address] [place] [address] 09/08/2022 15:20:39 09/08/2022 15:52:07 Deviated nasal septum 372823952 J34.2 Folliculitis 59895635 L7 3.9 [id number] El Plaza MD [facility] Primary Care [address] [place] [address] 10/05/2022 15:19:59 10/05/2022 15:57:58 Hemorrhoids 31239229 K64.9 [id number] JOSE LancasterP-C [facility] Primary Care [address] [place] [address] 04/29/2024 14:02:13 04/29/2024 15:33:01 Psoriasis 4036921 L40.9 Otezla paperwork for the upcoming year filled out and handed back to patient. Renewal of prescription 639339190 Z76.0 Psoriatic arthritis 1563 43284 L40.50 Cellulitis of lower limb 804092045 L03.119 Will treat as listed below, discussed antibiotic therapy with patient. Patient aware to take medication with food and to drink plenty of water while taking this medication .Patient instructed to contact surgeon today regarding symptoms and treatment of cellulitis . Osteoarthritis 806155584 M19.90 Not well controlled , per patient.Di scussed pain management referral with patient, patient refuses at this time. [id number] Edward Corbett MD [facility] [address] [place] [address] 07/02/2024 14:44:47 07/03/2024 10:37:40 Pain of left hip joint 8211610639 95268 M25.552 Actinic keratosis 443577 007 L57.0 Right breast, 7 o'clock Health Concerns Section Related Observation LastModified by Organization Detai ls LastModified Time None Recorded Concern Status LastModified by Organization Details LastModified Time None Recorded Advance Directives Directive None Recorded Payers Insurance Date Sequence Insurance Name Policy Number Policy Hernandez Covered Member ID Hernandez Member ID Guarantor Name 07/09/2024 1 [employer] - GOLD PLUS (MEDICARE REPLACEMENT/ ADVANTAGE - HMO) Alissa Hutchinson [id number] Alissa Hutchinson Notes Date Note Type Note [...] El Plaza MD [address], [place], [address], [employer] 09/16/2022 11:05:22 09/08/2022 text/html this patient reports that her nose runs and that she has bleeding and left-sided nasal obstruction this has been going on for years but she did fall 2 months ago and landed on her face. She has been using Vaseline but no twqt-xps-jxuzmmo medications she also reports that her voice changes some time to time that she has occasional throat pain as well. She also reports that she has occasional right ear pain which lasts for brief periods. Jamal Pak MD [address], [place], [address], [employer] 09/08/2022 15:47:06 10/05/2022 text/html currently on ote zla and is having some sores on face, she blames it on stress regarding surgery had hemorrhoid surgery on 09/22, still bleeding since then, saw Dr. Martinez on Monday in f/u, was told it was healing. She has pain with bowel movements and has f/u with Dr. Martinez in 2 weeks. El Plaza MD [address], [place], [address], [employer] 10/14/2022 15:28:16 04/29/2024 text/html Patient is a [...] shortness of breath. DANIELA Lancaster-Laura [address] [email or web address], [facility] [address], [place], [address], [employer] 04/29/2024 20:58:40 07/02/2024 text/html Alissa Hutchinson i [...] spot on her right breast Lena Sevilla, DANIELA [address] [email or web address], [address], [place], [address], [employer] 07/02/2024 16:56:05 OBGyn Episode No OBEpisode recorded.
--- OUTSIDE RECORDS SUMMARY | 2025-01-10 11:57 | XMS_ITS | Clinical Summary ---
Author Organization [facility] Address [address] [place] [address] Care Team Providers Care Non Profit Director Name Role Phone Rajesh Palmer MD Unavailable Aurea Plaza MD Primary Care Provider [phone] Source Comments [facility],non-owned Affiliates and Associated Physician Practices is amultiple site organization consisting of ambulatory clinics and hospital sitesin [place], [place], [place] and [place]. This disclosure is being madepursuant to the Care Everywhere program and may not contain all information available regarding this patient. Last updated 18.[facility] Allergies Active Allergy Reactions Criticality Noted Date [...] mouth once daily Active Glucosamine-Cho ndroitin-Vit D3 9872-9530-585 MG-MG-UNIT Take 2 Tabs by mouth once [...] tablet Take by mouth once daily Active DF-B7-G08-D-Ome ga 3-Phytoster (ANIMI-3/VITAMI N D PO) Active Social History Tobacco Use Types Packs/Day Years Used Date Smoking Tobacco: Never Assessed Comments No Sex and Gender Information Value Date Recorded Sex Assigned at Not on file Legal Sex Female 5:25 AM [employer] Gender Identity Not on file Sexual Orientation [...] season) 2024 DEPRESSION SCREENING 06/19/2024 INFLUENZA VACCINE (#1) 2025 06/30/2015 HEPATITIS B VACCINE Aged Out No longe [...] age to complete this topic Care Teams Non Profit Director Relationship Specialty Start Date End Date Aurea Plaza MD [address] [place] [address] [place] [address] PCP - General 10/11/22 [place] [address] [facility] [address] [place] [address] Orthopedic Surgery 01/13/17
--- OUTSIDE RECORDS SUMMARY | 2025-01-10 11:57 | XMS_ITS | Clinical Summary ---
Author Organization [facility] Address [address] [place] [address] Care Team Providers Care Fashion Director Party Plan Sales Name Role Phone Aurea Plaza MD Primary Care Provider + Allergies Active Allergy Reactions Criticality Noted Date Comments Adhesive Rash Medium Codeine Itching,Other (See comments) Low 015 INSOMNIA Lidocaine Other (See comments) Low 01/05/2018 EXTREME SHAKING Medications folic acid (FOLVITE) 1 mg tablet take 1 tablet daily 5 Active gluc rice/chondro rice A/vit C/Mn (GLUCOSAMINE-CH ONDROIT-VIT C-MN) 147-998-64-5 mg tablet daily. 5 Active multivitamin tabletIndicatio [...] 08/23/2017 Surgical History Surgery Date Site/Laterality Comments [place] NEUROPLASTY &/TRANSPOS ME MARLEN NRV CARPAL TUNNE Neuroplasty Decompression Median Nerve At Carpal Tunnel - (Added by TW Conv) MN STOT/TOT HYSTERECTOMY AFT ER DELIVERY Hysterectomy - (Added by TW Conv) MN COLECTOMY PARTIAL W/ANASTOMOSIS Partial Colectomy - (Added by TW Conv) MN REPAIR RECTOCELE SEPARATE PROCEDURE Rectocele Repair - (Added by TW Conv) MN PARAVAGINAL DEFECT REPAIR OPEN ABDOMINAL APPR Paravaginal Defect Repair - (Added by TW Conv) KNEE SURGERY Knee Surgery - (Added by TW Conv) [place] EXPLORATORY LAPAROTOMY CELIOTOMY W/WO BIOPSY SPX Exploratory [...] on file Legal Sex Female 12:02 PM PHYSICAL GEOGRAPHER Gender Identity Not on file Sexual Orientation Not on file Obstetrics History Last Filed Vital Signs Vital Sign Reading Time Taken Comments Blood Pressure 116/80 02/19/2019 1:35 PM CDT Pulse 66 02/19/2019 1:35 PM CDT Temperature 37.2 C (98.9 F) 06/21/2018 1:44 PM PHYSICAL GEOGRAPHER Respiratory Rate 16 02/19/2019 1:35 PM CDT Oxygen Saturation 94% 02/19/2019 1:35 PM CDT Inhaled Oxygen Concentration - - Weight 69.9 kg (154 lb) 02/19/2019 1:35 PM CDT Height 162.6 cm (5' 4) 02/19/2019 1:35 PM CDT Body Mass Index 26.43 02/19/2019 1:35 PM CDT Plan of Treatment Not on file Insurance [employer] MEDICARE PPO [employer] MEDICARE PPO [employer] CHOICE MEDICARE PPO Care Teams Fashion Director Party Plan Sales Relationship Specialty Start Date End Date Aurea Plaza MD PCP - General Family Medicine 05/07/19
--- OUTSIDE RECORDS SUMMARY | 2025-01-10 11:57 | XMS_ITS | Data Portability ---
Author Organization [employer] Address [address] [address] Assessment Encounter Date Assessment Date Assessment LastModified [...] Recorded Time Bilateral osteoarthr itis of knees [id number] 07 Active 2023 CORDELL ROBIN PARISH VISITOR [address] [place] [address], [place], [place], [address] [place] [address] , [employer] 4 16:44:27 Muscle weakness 32720600 Active 2023 CORDELL ROBIN PARISH VISITOR [address] [place] [address], [place], [place], [address] [place] [address] , [employer] 4 16:44:32 Abnormal gait due to muscle weakness 178639095 Active 2023 CORDELL ROBIN PARISH VISITOR [address] [place] [address], [place], [place], [address] [place] [address] , [employer] 4 16:44:35 Rheumatoid arthritis 89200006 Active 2023 CORDELL ROBIN APRN [address] [place] [address], [place], [place], [address] [place] [address] , [employer] 4 16:44:47 Dizziness and giddiness 008980571 Active 2023 CORDELL ROBIN APRN [address] [place] [address], [place], [place], [address] [place] [address] , [employer] 4 16:47:06 Problem Notes None recorded. Medical Equipment None Reported. Allergies Allergen ID Allergen Name Allergen Category Reaction Reaction Severity Criticality Documentation Date Start Date Code Code System Note Provider Name and Address Organization Details Recorded Time 51918 codeine medicatio n itching other Not available Not available low 11/08/20242014 2670 RxNorm Sleep lessn ess and itchi ng INSOM OZIEL Not Available [employer] - External Data Service - prod 5 11:52:34 66735 lidocaine medicatio n other Not available low 11/08/20242016 6387 RxNorm Extre me shake s EXTRE ME SHAKI NG Not Available [employer] - External Data Service - prod 5 11:52:34 40030 Medicinal product acting as adhesive (product) environme nt,medica tion rash Not available high 11/08/20242022 34886 2009 SNOMED Not Available [employer] External Data Service - prod 5 11:52:34 [...] Updated DateTime 03/18/2024 162.56 cm 23.5 kg/m2 77604.15 g CORDELL ROBIN APRN [address] [place] [address], [address], [place] - [employer] [facility] 03/18/2024 15:13:58 Social History None recorded. Functional Status None recorded. Mental Status None recorded. Family History Nothing Reported. Medical History No medical history recorded. Gynecological HistoryNo gynecological history recorded. Obstetrics History GPAL:G 0 P 0 0 0 0 Past Encounters Encounter ID Performer Location Encounter Start Date Encounter Closed Date Diagnosis/Indication Diagnosis SNOMED-CT Code Diagnosis ICD10 Code Diagnosis Note [id number] CORDELL ROBIN APRN [place] [address] [facility] [address] [facility] [place] [address] 03/18/2024 16:52:36 03/18/2024 16:54:36 Bilateral osteoarthritis of knees 4434534964 05012 M17.0 -Continue with current medical management and medication s.-Continu e with SN/PT/OT to help with pain, exercise and gaining strength. Muscle weakness 22114291 M62.81 --Continue to work with HH SN/PT/OT to increase strength and balance. Abnormal g ait due to muscle weakness 409475336 M62.81 -Continue to work with HH SN/PT/OT to increase strength and balance. Rheumatoid arthritis 698 12334 M06.9 -Continue with current medical management and medication s.-Continu e with SN/PT/OT to help with pain, exercise and to gain strength Dizziness and giddiness 044538483 R42 -Continue to work with HH SN/PT/OT to help with balance. History of total knee arthroplasty 0897486402 105 Z96.659 -Continue with current medical management [...] Member ID Hernandez Member ID Guarantor Name 12/17/2024 1 [employer] (MEDICARE REPLACEMENT/ ADVANTAGE - HMO) Alissa Hutchinson [id number] Alissa Hutchinson Notes Date Note Type Note Provider Name and Address Organization Details Recorded Time 03/18/2024 text/html 79 year old female. Pt had video and audio visit due [...] No acute findings reported today. CORDELL ROBIN PARISH VISITOR [address] [place] [address], [place], [address], [employer] 04/02/2024 08:41:52 OBGyn Episode No OBEpisode recorded.
--- OUTSIDE RECORDS SUMMARY | 2025-01-10 11:57 | XMS_ITS | Clinical Summary ---
Author Organization [facility] Address [address] [place] [address] Care Team Providers Care Garage Door Service Technician Name Role Phone Unavailable Primary [...] of 2 - PCV) 1964 Influenza Vaccine (#1) 2025 06/30/2015 Hepatitis B Vaccine Aged Out No longe r eligible based on patient's age to complete this topic Insurance Medicare
--- OUTSIDE RECORDS SUMMARY | 2025-01-10 11:57 | XMS_ITS | Referral Summary ---
Author Organization [facility] Address [address] [place] [address] Care Team Providers Care Dyer Helper Name Role Phone Aurea Plaza MD Primary Care Provider + Allergies Active Allergy Reactions Criticality Noted Date Comments Adhesive Rash Medium Codeine Itching,Other (See comments) Low 015 INSOMNIA Lidocaine Other (See comments) Low 01/05/2018 EXTREME SHAKING Medications folic acid (FOLVITE) 1 mg tablet take 1 tablet daily 5 Active gluc rice/chondro rice A/vit C/Mn (GLUCOSAMINE-CH ONDROIT-VIT C-MN) 083-607-53-5 mg tablet daily. 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 Gender Identity Not on file Sexual Orientation Not on file Last Filed Vital Signs Vital Sign Reading Time Taken Comments Blood Pressure 116/80 02/19/2019 1:35 PM CDT Pulse 66 02/19/2019 1:35 PM CDT Temperature 37.2 C (98.9 F) 06/21/2018 1:44 PM FIBERLINE SUPERVISOR Respiratory Rate 16 02/19/2019 1:35 PM CDT Oxygen Saturation 94% 02/19/2019 1:35 PM CDT Inhaled Oxygen Concentration - - Weight 69.9 kg (154 lb) 02/19/2019 1:35 PM CDT Height 162.6 cm (5' 4) 02/19/2019 1:35 PM CDT Body Mass Index 26.43 02/19/2019 1:35 PM CDT Plan of Treatment Not on file Insurance [employer] CHOICE MEDICARE PPO [employer] CHOICE MEDICARE PPO [employer] CHOICE MEDICARE PPO Care Teams Dyer Helper Relationship Specialty Start Date End Date Aurea Plaza MD PCP - General Family Medicine 05/07/19
--- OUTSIDE RECORDS SUMMARY | 2025-01-10 12:36 | XMS_ITS | Clinical Summary ---
Author Organization [facility] Address [address] [place] [address] Care Team Providers Care It Service Manager Name Role Phone Aurea Plaza MD Primary Care Provider + Allergies Active Allergy Reactions Criticality Noted Date Comments Adhesive Rash Medium Codeine Itching,Other (See comments) Low 015 INSOMNIA Lidocaine Other (See comments) Low 01/05/2018 EXTREME SHAKING Medications folic acid (FOLVITE) 1 mg tablet take 1 tablet daily 5 Active gluc rice/chondro rice A/vit C/Mn (GLUCOSAMINE-CH ONDROIT-VIT C-MN) 878-103-37-5 mg tablet daily. 5 Active multivitamin tabletIndicatio [...] 08/23/2017 Surgical History Surgery Date Site/Laterality Comments [place] NEUROPLASTY &/TRANSPOS ME MARLEN NRV CARPAL TUNNE Neuroplasty Decompression Median Nerve At Carpal Tunnel - (Added by TW Conv) [place] STOT/TOT HYSTERECTOMY AFT ER DELIVERY Hysterectomy - (Added by TW Conv) [place] COLECTOMY PARTIAL W/ANASTOMOSIS Partial Colectomy - (Added by TW Conv) DC REPAIR RECTOCELE SEPARATE PROCEDURE Rectocele Repair - (Added by TW Conv) [place] PARAVAGINAL DEFECT REPAIR OPEN ABDOMINAL APPR Paravaginal Defect Repair - (Added by TW Conv) KNEE SURGERY Knee Surgery - (Added by TW Conv) DC EXPLORATORY LAPAROTOMY CELIOTOMY W/WO BIOPSY SPX Exploratory [...] on file Legal Sex Female 12:02 PM LOOM BLOWER Gender Identity Not on file Sexual Orientation Not on file Obstetrics History Last Filed Vital Signs Vital Sign Reading Time Taken Comments Blood Pressure 116/80 02/19/2019 1:35 PM CDT Pulse 66 02/19/2019 1:35 PM CDT Temperature 37.2 C (98.9 F) 06/21/2018 1:44 PM LOOM BLOWER Respiratory Rate 16 02/19/2019 1:35 PM CDT Oxygen Saturation 94% 02/19/2019 1:35 PM CDT Inhaled Oxygen Concentration - - Weight 69.9 kg (154 lb) 02/19/2019 1:35 PM CDT Height 162.6 cm (5' 4) 02/19/2019 1:35 PM CDT Body Mass Index 26.43 02/19/2019 1:35 PM CDT Plan of Treatment Not on file Insurance [employer] MEDICARE PPO [employer] MEDICARE PPO [employer] CHOICE MEDICARE PPO Care Teams It Service Manager Relationship Specialty Start Date End Date Aurea Plaza MD PCP - General Family Medicine 05/07/19
--- OUTSIDE RECORDS SUMMARY | 2025-01-10 12:36 | XMS_ITS | Clinical Summary ---
Author Organization [facility] [employer] Address [address] [place] [address] Care Team Providers Care Postdoctoral Research Associate Name Role Phone Rajesh Palmer MD Unavailable Aurea Plaza MD Primary Care Provider [phone] Source Comments [facility],non-owned Affiliates and Associated Physician Practices is amultiple site organization consisting of ambulatory clinics and hospital sitesin [place], [place], [place] and [place]. This disclosure is being madepursuant to the Care Everywhere program and may not contain all information available regarding this patient. 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 [address] PCP - General 10/11/22 [place] [address] [facility] [address] [place] [address] Orthopedic Surgery 01/13/17
--- OUTSIDE RECORDS SUMMARY | 2025-01-10 12:36 | XMS_ITS | Clinical Summary ---
Author Organization [facility] Facility Address [address] [place] [address] Care Team Providers Care Metal Buildings Assembler Name Role Phone Unavailable Primary Care Provider [...]
--- OUTSIDE RECORDS SUMMARY | 2025-01-10 12:36 | XMS_ITS | Clinical Summary ---
Author Organization [facility] Address [address] [place] [address] Care Team Providers Care Machine Farmworker Name Role Phone Aurea Plaza MD Primary [...] 5 season) 2024 11/26/2020, 11/05/2020 PHQ-2 (Physician [place]) 06/19/2024 03/20/2023 Meningococcal B Vaccine Aged Out No l onger eligible based on patient's age to complete this topic Meningococcal Vaccine Aged Out No renee leydi eligible based on patient's age to complete this topic RSV Immunizations Under 20 Months Aged Out No longer eligible b ased on patient's age to complete this topic Insurance [employer] Care Teams Machine Farmworker Relationship Specialty Start Date End Date Aurea Plaza MD [address] [place] [address] PCP - General FAMILY PRACTICE 09/13/22
--- OUTSIDE RECORDS SUMMARY | 2025-01-10 12:36 | XMS_ITS | Referral Summary ---
Author Organization [facility] Address [address] [place] [address] Care Team Providers Care Oil Field Technician Name Role Phone Aurea Plaza MD Primary Care Provider + Allergies Active Allergy Reactions Criticality Noted Date Comments Adhesive Rash Medium Codeine Itching,Other (See comments) Low 015 INSOMNIA Lidocaine Other (See comments) Low 01/05/2018 EXTREME SHAKING Medications folic acid (FOLVITE) 1 mg tablet take 1 tablet daily 5 Active gluc rice/chondro rice A/vit C/Mn (GLUCOSAMINE-CH ONDROIT-VIT C-MN) 044-418-15-5 mg tablet daily. 5 Active multivitamin tabletIndicatio [...] on file Legal Sex Female 12:02 PM SPIKE MAKER Gender Identity Not on file Sexual Orientation Not on file Last Filed Vital Signs Vital Sign Reading Time Taken Comments Blood Pressure 116/80 02/19/2019 1:35 PM CDT Pulse 66 02/19/2019 1:35 PM CDT Temperature 37.2 C (98.9 F) 06/21/2018 1:44 PM SPIKE MAKER Respiratory Rate 16 02/19/2019 1:35 PM CDT Oxygen Saturation 94% 02/19/2019 1:35 PM CDT Inhaled Oxygen Concentration - - Weight 69.9 kg (154 lb) 02/19/2019 1:35 PM CDT Height 162.6 cm (5' 4) 02/19/2019 1:35 PM CDT Body Mass Index 26.43 02/19/2019 1:35 PM CDT Plan of Treatment Not on file Insurance [employer] CHOICE MEDICARE PPO [employer] CHOICE MEDICARE PPO [employer] CHOICE MEDICARE PPO Care Teams Oil Field Technician Relationship Specialty Start Date End Date Aurea Plaza MD PCP - General Family Medicine 05/07/19
--- OUTSIDE RECORDS SUMMARY | 2025-01-10 14:29 | XMS_ITS | Referral Summary ---
Author Organization [facility] Address [address] [place] [address] Care Team Providers Care Linotype Mechanic Name Role Phone Aurea Plaza MD Primary Care Provider + Allergies Active Allergy Reactions Criticality Noted Date Comments Adhesive Rash Medium Codeine Itching,Other (See comments) Low 015 INSOMNIA Lidocaine Other (See comments) Low 01/05/2018 EXTREME SHAKING Medications folic acid (FOLVITE) 1 mg tablet take 1 tablet daily 5 Active gluc rice/chondro rice A/vit C/Mn (GLUCOSAMINE-CH ONDROIT-VIT C-MN) 380-027-26-5 mg tablet daily. 5 Active multivitamin tabletIndicatio [...] on file Legal Sex Female 12:02 PM GORE MAKER Gender Identity Not on file Sexual Orientation Not on file Last Filed Vital Signs Vital Sign Reading Time Taken Comments Blood Pressure 116/80 02/19/2019 1:35 PM CDT Pulse 66 02/19/2019 1:35 PM CDT Temperature 37.2 C (98.9 F) 06/21/2018 1:44 PM GORE MAKER Respiratory Rate 16 02/19/2019 1:35 PM CDT Oxygen Saturation 94% 02/19/2019 1:35 PM CDT Inhaled Oxygen Concentration - - Weight 69.9 kg (154 lb) 02/19/2019 1:35 PM CDT Height 162.6 cm (5' 4) 02/19/2019 1:35 PM CDT Body Mass Index 26.43 02/19/2019 1:35 PM CDT Plan of Treatment Not on file Insurance [employer] CHOICE MEDICARE PPO [employer] CHOICE MEDICARE PPO [employer] CHOICE MEDICARE PPO Care Teams Linotype Mechanic Relationship Specialty Start Date End Date Aurea Plaza MD PCP - General Family Medicine 05/07/19
--- OUTSIDE RECORDS SUMMARY | 2025-01-10 14:29 | XMS_ITS | Clinical Summary ---
Author Organization [facility] Facility Address [address] [place] [address] Care Team Providers Care Flatwork Tier Name Role Phone Unavailable Primary Care Provider [...]
--- OUTSIDE RECORDS SUMMARY | 2025-01-10 14:29 | XMS_ITS | Clinical Summary ---
Author Organization [facility] Address [address] [place] [address] Care Team Providers Care Operations Support Analyst Name Role Phone Aurea Plaza MD Primary Care Provider + Allergies Active Allergy Reactions Criticality Noted Date Comments Adhesive Rash Medium Codeine Itching,Other (See comments) Low 015 INSOMNIA Lidocaine Other (See comments) Low 01/05/2018 EXTREME SHAKING Medications folic acid (FOLVITE) 1 mg tablet take 1 tablet daily 5 Active gluc rice/chondro rice A/vit C/Mn (GLUCOSAMINE-CH ONDROIT-VIT C-MN) 479-927-82-5 mg tablet daily. 5 Active multivitamin tabletIndicatio [...] 08/23/2017 Surgical History Surgery Date Site/Laterality Comments [place] NEUROPLASTY &/TRANSPOS ME MARLEN NRV CARPAL TUNNE Neuroplasty Decompression Median Nerve At Carpal Tunnel - (Added by TW Conv) [place] STOT/TOT HYSTERECTOMY AFT ER DELIVERY Hysterectomy - (Added by TW Conv) [place] COLECTOMY PARTIAL W/ANASTOMOSIS Partial Colectomy - (Added by TW Conv) [place] REPAIR RECTOCELE SEPARATE PROCEDURE Rectocele Repair - (Added by TW Conv) [place] PARAVAGINAL DEFECT REPAIR OPEN ABDOMINAL APPR Paravaginal Defect Repair - (Added by TW Conv) KNEE SURGERY Knee Surgery - (Added by TW Conv) [place] EXPLORATORY LAPAROTOMY CELIOTOMY W/WO BIOPSY SPX Exploratory [...] on file Legal Sex Female 12:02 PM 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 STORE DIRECTOR Gender Identity Not on file Sexual Orientation Not on file Obstetrics History Last Filed Vital Signs Vital Sign Reading Time Taken Comments Blood Pressure 116/80 02/19/2019 1:35 PM CDT Pulse 66 02/19/2019 1:35 PM CDT Temperature 37.2 C (98.9 F) 06/21/2018 1:44 PM ASSISTANT STORE DIRECTOR Respiratory Rate 16 02/19/2019 1:35 PM CDT Oxygen Saturation 94% 02/19/2019 1:35 PM CDT Inhaled Oxygen Concentration - - Weight 69.9 kg (154 lb) 02/19/2019 1:35 PM CDT Height 162.6 cm (5' 4) 02/19/2019 1:35 PM CDT Body Mass Index 26.43 02/19/2019 1:35 PM CDT Plan of Treatment Not on file Insurance [employer] MEDICARE PPO [employer] MEDICARE PPO [employer] CHOICE MEDICARE PPO Care Teams Operations Support Analyst Relationship Specialty Start Date End Date Aurea Plaza MD PCP - General Family Medicine 05/07/19
--- OUTSIDE RECORDS SUMMARY | 2025-01-10 14:29 | XMS_ITS | Clinical Summary ---
Author Organization [facility] Address [address] [place] [address] Care Team Providers Care Financial Specialist Name Role Phone Aurea Plaza MD Primary Care Provider [phone] Allergies Active Allergy Reactions Criticality Noted Date [...] 5 season) 2024 11/26/2020, 11/05/2020 PHQ-2 (Physician [place]) 06/19/2024 03/20/2023 Meningococcal B Vaccine Aged Out No l onger eligible based on patient's age to complete this topic Meningococcal Vaccine Aged Out No renee leydi eligible based on patient's age to complete this topic RSV Immunizations Under 20 Months Aged Out No longer eligible b ased on patient's age to complete this topic Insurance [employer] Care Teams Financial Specialist Relationship Specialty Start Date End Date Aurea Plaza MD [address] [address] PCP - General FAMILY PRACTICE 09/13/22
--- OUTSIDE RECORDS SUMMARY | 2025-01-10 14:29 | XMS_ITS | Clinical Summary ---
Author Organization [facility] Address [address] [place] [address] Care Team Providers Care Picture Painter Name Role Phone Rajesh Palmer MD Unavailable Aurea Plaza MD Primary Care Provider [phone] [facility],non-owned Affiliates and Associated Physician Practices is amultiple site organization consisting of ambulatory clinics and hospital sitesin [place], [place], [place] and [place]. This disclosure is being madepursuant to the Care Everywhere program and may not contain all information available regarding this patient. 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 [id number] PCP - General 10/11/22 [place] [address] [facility] [address] [place] [address] Orthopedic Surgery 01/13/17
[2025-01-10 15:04] LABS: Add Urine Microscopic? YES; Appearance Urine Clear (Clear); Glucose Urine UA Negative (Negative); Leukocyte Esterase Ur 1+ LEU/UL (Negative); Nitrate Urine Negative (Negative); Non Pathogenic Casts 0-2; Specific Grav Ur 1.017 (1.001-1.035)
[2025-01-10 15:29] LABS: CRP < 0.5 mg/dL (<1.0)
== END 2025-01-10 14:26 | disposition home or self-care (01) ==
PROVIDERS: PCP Nurse Practitioner Family; Referring Provider Nurse Practitioner Family; Visit Provider Orthopaedic Surgery
DX: M25.552 Pain in left hip (principal); Z96.652 Presence of left artificial knee joint; R30.0 Dysuria; T84.84XA Pain due to internal orthopedic prosthetic devices, implants and grafts, initial encounter
CPT/HCPCS: 36415; 73502; 73562; 81001; 85652; 86140; 87086

== ENCOUNTER 2025-02-10 11:25 | Outpatient (CLI) | payer MEDICARE, SELFPAY ==
--- NOTE | ~2025-02-10 | NM_ITS ---
EXAMINATION: NM bone scan whole body DATE: 02/10/2025 15:14 INDICATION: Pain due to internal orthopedic prosthetic device. Back pain. TECHNIQUE: 25.4 mCi Tc-99m HDP was administered intravenously. Delayed whole- body scintigrams were obtained. COMPARISON: Bilateral shoulder radiographs dated 11/19/2024, left knee and pelvis and bilateral hip radiographs dated 01/10/2025 and lumbar spine MR dated 09/01/2024 FINDINGS: Photopenic defect associated with a left total knee arthroplasty and a right total hip arthroplasty, both without abnormal periprosthetic activity to suggest loosening or infection. There is likely degenerative joint centered uptake at the right knee, right elbow, bilateral shoulders, bilateral hands and wrists and in the bilateral feet. Thoracolumbar levoscoliosis with horizontal band of likely degenerative disc disease related uptake with corresponding severe disc height loss and degenerative endplate changes at L1-L2 and L4-L5. No other foci of abnormal bone uptake to suggest acute osseous adenopathy or metastatic disease. IMPRESSION: 1. Left total knee arthroplasty and right total hip arthroplasty, both without abnormal periprosthetic activity to suggest loosening or infection. 2. Scattered likely degenerative joint and disc centered uptake in the appendicular and axial skeleton. Reviewed, dictated and finalized at location A. IMPRESSION: 1. Left total knee arthroplasty and right total hip arthroplasty, both without abnormal periprosthetic activity to suggest loosening or infection. 2. Scattered likely degenerative joint and disc centered uptake in the appendic ular and axial skeleton.
--- OUTSIDE RECORDS SUMMARY | 2025-02-10 12:10 | XMS_ITS | Clinical Summary ---
Author Organization [facility] Address [address] [place] [address] Care Team Providers Care Manipulative Therapy Specialist Name Role Phone Aurea Plaza MD [...] 5 season) 2024 11/26/2020, 11/05/2020 PHQ-2 (Physician [place]) 06/19/2024 03/20/2023 Meningococcal B Vaccine Aged Out No l onger eligible based on patient's age to complete this topic Meningococcal Vaccine Aged Out No renee leydi eligible based on patient's age to complete this topic RSV Immunizations Under 20 Months Aged Out No longer eligible b ased on patient's age to complete this topic Insurance [employer] Care Teams Manipulative Therapy Specialist Relationship Specialty Start Date End Date Aurea Plaza MD [address] [place] [address] PCP - General FAMILY PRACTICE 09/13/22
--- OUTSIDE RECORDS SUMMARY | 2025-02-10 12:10 | XMS_ITS | Clinical Summary ---
Author Organization [facility] [place] Address [address] [place] [address] Care Team Providers Care Corporate Affairs Manager Name Role Phone Rajesh Palmer MD Unavailable Aurea Plaza MD Primary Care Provider [phone] Source Comments [facility],non-owned Affiliates and Associated Physician Practices is amultiple site organization consisting of ambulatory clinics and hospital sitesin [place], [place], [place] and [place]. This disclosure is being madepursuant to the Care Everywhere program and may not contain all information available regarding this patient. Last updated 18.[facility] [place] Allergies Active Allergy Reactions Criticality Noted Date [...] mouth once daily Active Glucosamine-Cho ndroitin-Vit D3 1905-5497-300 MG-MG-UNIT Take 2 Tabs by mouth once [...] tablet Take by mouth once daily Active [id number]-D-Ome ga 3-Phytoster (ANIMI-3/VITAMI N D PO) Active Social History Tobacco Use Types Packs/Day Years Used Date Smoking Tobacco: Never Assessed Comments No Sex and Gender Information Value Date Recorded Sex Assigned at Not on file Legal Sex Female 5:25 AM SURGICAL RESIDENT Gender Identity Not on file Sexual Orientation [...] age to complete this topic Care Teams Corporate Affairs Manager Relationship Specialty Start Date End Date Aurea Plaza MD [address] [place] [address] [place] [id number] PCP - General 10/11/22 [place] [id number] [facility] [address] [place] [id number] Orthopedic Surgery 01/13/17
--- OUTSIDE RECORDS SUMMARY | 2025-02-10 12:10 | XMS_ITS | Clinical Summary ---
Author Organization [facility] Facility Address [address] [place] [address] Care Team Providers Care Assisted Living Nursing Director Name Role Phone Unavailable Primary Care Provider [...]
--- OUTSIDE RECORDS SUMMARY | 2025-02-10 12:10 | XMS_ITS | Clinical Summary ---
Author Organization [facility] Address [address] [place] [address] Care Team Providers Care Kicking Machine Operator Name Role Phone Aurea Plaza MD Primary Care Provider + Allergies Active Allergy Reactions Criticality Noted Date Comments Adhesive Rash Medium Codeine Itching,Other (See comments) Low 015 INSOMNIA Lidocaine Other (See comments) Low 01/05/2018 EXTREME SHAKING Medications folic acid (FOLVITE) 1 mg tablet take 1 tablet daily 5 Active gluc rice/chondro rice A/vit C/Mn (GLUCOSAMINE-CH ONDROIT-VIT C-MN) 401-129-27-5 mg tablet daily. 5 Active multivitamin tabletIndicatio [...] on file Legal Sex Female 12:02 PM PERSONAL FINANCIAL ADVISOR Gender Identity Not on file Sexual Orientation Not on file Obstetrics History Last Filed Vital Signs Vital Sign Reading Time Taken Comments Blood Pressure 116/80 02/19/2019 1:35 PM CDT Pulse 66 02/19/2019 1:35 PM CDT Temperature 37.2 C (98.9 F) 06/21/2018 1:44 PM PERSONAL FINANCIAL ADVISOR Respiratory Rate 16 02/19/2019 1:35 PM CDT Oxygen Saturation 94% 02/19/2019 1:35 PM CDT Inhaled Oxygen Concentration - - Weight 69.9 kg (154 lb) 02/19/2019 1:35 PM CDT Height 162.6 cm (5' 4) 02/19/2019 1:35 PM CDT Body Mass Index 26.43 02/19/2019 1:35 PM CDT Plan of Treatment Not on file Insurance [employer] MEDICARE PPO [employer] MEDICARE PPO [employer] CHOICE MEDICARE PPO Care Teams Kicking Machine Operator Relationship Specialty Start Date End Date Aurea Plaza MD PCP - General Family Medicine 05/07/19
== END 2025-02-10 11:26 | disposition home or self-care (01) ==
PROVIDERS: PCP Nurse Practitioner Family; Visit Provider Orthopaedic Surgery
DX: T84.84XA Pain due to internal orthopedic prosthetic devices, implants and grafts, initial encounter (principal); Z96.652 Presence of left artificial knee joint; M16.12 Unilateral primary osteoarthritis, left hip; M48.061 Spinal stenosis, lumbar region without neurogenic claudication; M25.511 Pain in right shoulder
CPT/HCPCS: 78306; A9503

== ENCOUNTER 2025-05-20 13:43 | Outpatient (CLI) | payer MEDICARE, SELFPAY ==
[2025-05-20 14:16] LABS: Hematocrit 38.0 % (37.0-47.0); Hemoglobin 12.5 g/dL (12.0-15.0); Immature Granulocyte Percent A 0.2 % (0-0.5); Lymphocytes Absolute Auto 1.57 K/mm3 (0.9-3.2); Mean Corpuscular HGB Conc 32.9 g/dl (32-36); Mean Corpuscular Hemoglobin 32.6 pg (26-34); Mean Corpuscular Volume 99.2 fl (80-100); Nucleated Red Blood Cells Absolute Auto 0.000 K/mm3 (0.0-0.012); Nucleated Red Blood Cells Perc 0.0 % (0.0-0.2); Platelet Count Result 284 k/mm3 (150-375); Red Blood Count 3.83 M/mm3 (4.2-5.4); White Blood Count 5.6 K/mm3 (4.5-10.0)
[2025-05-20 14:17] LABS: Hemoglobin A1C 5.6 % (<5.7)
[2025-05-20 14:21] LABS: Iron 135 ug/dL (37-170)
[2025-05-20 14:31] LABS: Percent Iron Saturation 49 % (20-50)
[2025-05-20 14:43] LABS: Alanine Aminotransferase 25 U/L (6-35); Albumin Level 4.4 g/dL (3.5-5.1); Alkaline Phosphatase 110 U/L (38-126); Anion Gap 4 mmol/L (4-12); Aspartate Amino Transferase 29 U/L (14-36); Bilirubin,Total 0.6 mg/dL (0.2-1.3); Blood Urea Nitrogen 30 mg/dL (7-17); Calcium 9.5 mg/dL (8.4-10.2); Carbon Dioxide 27 mmol/L (22-30); Chloride 106 mmol/L (98-107); Estimated Glomerular Filt Rate 40; Glucose 132 mg/dL (65-110); Potassium 4.4 mmol/L (3.4-5.0); Sodium 137 mmol/L (137-145); Total Protein 7.6 g/dL (6.3-8.2)
[2025-05-20 14:45] LABS: Add Urine Microscopic? YES; Appearance Urine Clear (Clear); Glucose Urine UA Negative (Negative); Leukocyte Esterase Ur Negative LEU/UL (Negative); Nitrate Urine Negative (Negative); Specific Grav Ur 1.026 (1.001-1.035)
--- OUTSIDE RECORDS SUMMARY | 2025-05-20 14:46 | XMS_ITS | Clinical Summary ---
Author Organization [facility] Address [address] [place] [address] Care Team Providers Care Back Maker Name Role Phone Tamara Garcia CHHAYA Primary Care Provider [phone] Allergies Active Allergy Reactions Criticality Noted Date Comments Adhesive Rash Medium Codeine Itching,Other (See comments) Low 015 INSOMNIA Lidocaine Other (See comments) Low 01/05/2018 EXTREME SHAKING Medications folic acid (FOLVITE) 1 mg tablet take 1 tablet daily 5 Active gluc rice/chondro rice A/vit C/Mn (GLUCOSAMINE-CH ONDROIT-VIT C-MN) 339-529-61-5 mg tablet daily. 5 Active multivitamin tabletIndicatio [...] 06/17/2015 Psoriasis 06/17/2015 Osteoarthritis of hip 03/16/2015 Encounters Date Type Department Care Team Description 05/08/2025 1:00 PM BLASTING CAP ASSEMBLER Office Visit [facility] Orthopaedic Surgery [address] [facility] 1st Floor [address] [place] [address] Nicolas Mayfield MD Primary osteoarthritis of right shoulder (Primary Dx) 03/27/2025 2:56 PM CDT - 03/27/2025 11:59 PM CDT Hospital Encounter [facility] [address] [place] [address] Nabila Fonseca MD Primary osteoarthritis of right shoulder Discharge Disposition: Discharge to home or self care 03/21/2025 Telephone [facility] Orthopaedic Surgery [address] [place] [address] Judy Charles CMA Scheduling Appointments 03/20/2025 2:10 PM CDT Office Visit [facility] Orthopaedic Surgery [address] [facility] 1st [address] [place] [address] Nicolas Mayfield MD Primary osteoarthritis of right shoulder (Primary Dx) 03/19/2025 1:29 PM CDT - 03/19/2025 11:59 PM CDT Hospital Encounter [facility] ([facility]) [address] [place] [address] Discharge Disposition: Discharge to home or self care from Last 3 Months Immunizations Immunization Administration Dates Next Due Influenza, Unspecified 06/30/2015 Pneumococcal Conjugate, Unspecified 08/23/2017 Surgical History Surgery Date Site/Laterality Comments [place] NEUROPLASTY &/TRANSPOS MEDIAN NRV CARPAL TUNNE Neuroplasty Decompression Median Nerve At Carpal Tunnel - (Added by TW Conv) [place] STOT/TOT HYSTERECTOMY AFTER DELIVERY Hysterectomy - (Added by TW Conv) [place] COLECTOMY PARTIAL W/ANASTOMOSIS Partial Colectomy - (Added by TW Conv) [place] REPAIR RECTOCELE SEPARATE PROCEDURE Rectocele Repair - (Added by TW Conv) [place] PARAVAGINAL DEFECT REPAIR OPEN ABDOMINAL APPR Paravaginal Defect Repair - (Added by TW Conv) KNEE SURGERY Knee Surgery - (Added by TW Conv) [place] EXPLORATORY LAPAROTOMY CELIOTOMY W/WO BIOPSY SPX Exploratory Laparotomy - (Added by TW Conv) FLUORO GUIDED INJECTION SHOULDER RIGHT 03/27/2025 Right Medical History Medical History Date Comments Arthritis [...] on file Legal Sex Female 12:02 PM BLASTING CAP ASSEMBLER Gender Identity Not on file Sexual Orientation Not on file Last Filed Vital Signs Vital Sign Reading Time Taken Comments Blood Pressure 122/63 03/27/2025 3:34 PM CDT Pulse 75 03/27/2025 3:34 PM CDT Temperature 37.2 C (98.9 F) 06/21/2018 1:44 PM BLASTING CAP ASSEMBLER Respiratory Rate 16 02/19/2019 1:35 PM CDT [...] Pneumococcal vaccine 65+ (2 of 2 - PPSV23, PCV20, or PCV21) 10/18/2017 08/23/2017 Depression Screening 12/26/2018 12/26/2017 Fall Risk Assessment 12/26/2018 12/26/2017 Influenza Vaccine (#1) 2025 06/30/2015 Procedures Procedure Name Priority Date/Time Associated Diagnosis Comments FLUORO GUIDED INJECTION SHOULDER RIGHT Schedule Routine, Read Routine (OP Routine) 03/27/2025 3:27 PM CDT Primary osteoarthritis of right shoulder XR TRANSFER OF OUTSIDE FILMS Routine 03/19/2025 1:29 PM CDT from Last 3 Months Results * FL Fluoro Guided Injection Shoulder Right (GLENOHUMERAL JOINT) (03/27/2025 3:27 PM CDT) Narrative [facility] - 03/27/2025 3:28 PM CDT The images from this study are not interpreted by Radiology. Please refer to the physician's procedure / OR operative note. us Nicolas Mayfield MD IMG FLUOROSCOPY WIL LATHAM Final Result [facility] * XR Outside Reference (03/19/2025 1:29 PM CDT) Impressions [facility] - 03/19/2025 1:29 PM CDT These images are for Reference purposes only and have not been reviewed by [facility] Radiology. There will be no report generated by a [facility] Radiologist. Narrative [facility] - 03/19/2025 1:29 PM CDT EXAMINATION: Images For Reference Purposes Only us Nicolas Mayfield MD IMG XR PROCEDURES Fin al Result [facility] from Last 3 Months Insurance [employer] MEDICARE PPO [employer] MEDICARE PPO [employer] MEDICARE HMO HU[employer] MEDICARE HMO Care Teams Back Maker Relationship Specialty Start Date End Date Tamara Garcia NP [address] [place] [address] PCP - General Family Medicine 02/28/25
--- OUTSIDE RECORDS SUMMARY | 2025-05-20 14:46 | XMS_ITS | Clinical Summary ---
Author Organization [email or web address] Address [address] [place] [address] Care Team Providers Care Windows Desktop Engineer Name Role Phone Rajesh Palmer MD Unavailable Aurea Plaza MD Primary Care Provider [phone] Source Comments [facility],non-owned Affiliates and Associated Physician Practices is amultiple site organization consisting of ambulatory clinics and hospital sitesin [place], [place], [place] and [place]. This disclosure is being madepursuant to the Care Everywhere program and may not contain all information available regarding this patient. Last updated 18.[email or web address] Allergies Active Allergy Reactions Criticality Noted Date [...] mouth once daily Active Glucosamine-Cho ndroitin-Vit D3 [id number] MG-MG-UNIT Take 2 Tabs by mouth once [...] tablet Take by mouth once daily Active [id number]-C9-[id number]-D-Ome ga 3-Phytoster (ANIMI-3/VITAMI N D PO) Active Social History Tobacco Use Types Packs/Day Years Used Date Smoking Tobacco: Never Assessed Comments No Sex and Gender Information Value Date Recorded Sex Assigned at Not on file Legal Sex Female 5:25 AM COMPLIANCE REVIEWER Gender Identity Not on file Sexual Orientation [...] yrs (1 - 1-dose 75+ series) 2018 DEPRESSION SCREENING 06/19/2024 COVID-19 VACCINE ( - 2024-2 6 season) 2025 INFLUENZA VACCINE (#1) 2025 06/30/2015 HEPATITIS B [...] age to complete this topic Care Teams Windows Desktop Engineer Relationship Specialty Start Date End Date Aurea Plaza MD [address] [place] [address] [place] [id number] PCP - General 10/11/22 [place] [address] [facility] [address] [place] [address] Orthopedic Surgery 01/13/17
--- OUTSIDE RECORDS SUMMARY | 2025-05-20 14:46 | XMS_ITS | Clinical Summary ---
Author Organization [facility] Address [address] [place] [address] Care Team Providers Care Bio Medical Technician Name Role Phone Aurea Plaza MD [...] 75+ series) 2018 COVID-19 Vaccine (3 - Pfizer risk series) 12/24/2020 11/26/2020, 11/05/2020 PHQ-2 (Physician [place]) 06/19/2024 Influenza Adult (#1) 2025 06/30/2015 Hepatitis A Vaccines Aged Out No long er eligible based on patient's age to complete this topic Meningococcal B Vaccine Aged Out No l onger eligible based on patient's age to complete this topic Meningococcal Vaccine Aged Out No renee leydi eligible based on patient's age to complete this topic RSV Immunizations Under 20 Months Aged Out No longer eligible b ased on patient's age to complete this topic Insurance MEDICARE Care Teams Bio Medical Technician Relationship Specialty Start Date End Date Aurea Plaza MD [address] [place] [address] [place] [address] PCP - General FAMILY PRACTICE 09/13/22
--- OUTSIDE RECORDS SUMMARY | 2025-05-20 14:46 | XMS_ITS | Clinical Summary ---
Author Organization [facility] Facility Address [address] [place] [address] Care Team Providers Care Replacer Name Role Phone Unavailable Primary Care Provider [...]
--- OUTSIDE RECORDS SUMMARY | 2025-05-20 14:46 | XMS_ITS | Data Portability ---
Author Organization [place] [facility] [employer], Main Office Address [address] [place] [address] Care Team Providers Care Director Of Development Name Role Phone EL PLAZA Primary Care Provider [phone] EL PLAZA Referring Provider Assessment No assessment recorded. Plan of Treatment Reminders Order Date Submit Date Provider Last Modified By Organization Details Last Modified Time Details Appointments None recorded. Lab vitamin D, 25-hydroxy, total, serum 2022 023 [email or web address] Not available 3 08:23:46 BMP, serum or plasma 2022 023 [email or web address] Not available 3 08:18:31 hepatic function panel, serum 2022 023 [email or web address] Not available 3 08:47:16 ESR (erythrocyt e sedimentati on rate), blood 2022 023 [email or web address] Not available 3 08:47:17 TSH, serum or plasma 2022 023 ESDRAS Not available 3 08:23:30 vitamin B12, serum 2022 023 [email or web address] Not available 3 08:47:16 folate, serum 2022 023 [email or web address] Not available 3 08:47:16 ferritin, serum or plasma 2022 023 [email or web address] Not available 3 08:47:16 iron + total iron-bindin g capacity (TIBC), serum 2022 023 ESDRAS Not available 3 08:23:15 CBC w/ auto diff 2022 023 [email or web address] Not available 3 09:22:54 Referral physical therapist referral - Please call pt to schedule 2024 025 [email or web address] [facility], Occupational [facility], [address] [place], [address], 5 11:05:[address] referral 2024 025 [email or web address] Carleen Chang MD (Dermatology) , [address], [facility] [place], [address], 5 10:57:07 neurologist referral - Please call pt to schedule appt. Thank you 2022 023 [email or web address] Roberto MD, [address] [facility], [address], [place], [address], 3 12:55:17 Procedures None recorded. Surgeries None recorded. Imaging XR, hip, unilateral, 2 or 3 view - Please XR left hip 2024 025 [facility], [address], [place], [address], 5 09:33:27 DEXA [address] (Admitting), [address], [place], [address], 3 15:48:25 Medication Orders hydrocodone 5 mg-acetamin ophen 325 mg tablet 2024 025 [facility] #[id number], [address] , [place], [address], 5 15:39:19 cephalexin 500 mg capsule 2023 024 [id number], [address], [place], [address], 5 15:02:37 methotrexat e sodium 2.5 mg tablet 2023 024 [id number], [address] [place], [address], 4 14:47:45 duloxetine 60 mg capsule,del ayed release 2023 024 [id number], [address] [place], [address], 4 14:47:48 lidocaine 3 %-hydrocort isone 0.5 % rectal cream 2022 023 [email or web address] [id number], [address], [place], [address], 4 14:18:10 mupirocin 2 % topical ointment 2022 [email or web address] [place], [place] [address]Pharmacy #[id number], [address] [place], [address], 4 14:16:10 Patient TargetsNo targets recorded. Patient InstructionsNo instructions recorded. Reason for Referral Neurologist Referral for Hao mor Please call pt to schedule appt. Thank you Referring Physician: El Plaza, Family Medicine, Encounter Date: 08/30/2022 Physical Therapist Referral for Pain of left hip joint Please call pt to schedule Referring Physician: Lena Sevilla Family Medicine, Encounter Date: 07/02/2024 Car Oiler Referral for A ctinic keratosis Referring Physician: Lena Sevilla Family Medicine, Encounter Date: 07/02/2024 Results Created Date Observation Date Name Description Value Unit Range Abnormal Flag Note LastModifiedBy Organization Detail LastModifiedTime 09/21/1909/01/2022 DEXA No observ ation record ed. [email or web address] 20[address], [place], [address], 11/22/2022 10:45:09 09/14/19 24 09/13/2023 XR, knee No observ ation record ed. [address], [place], [address], 11/03/2023 19:49:35 09/27/19 24 09/27/2023 CT, lower extre mity, w/o contr ast No observ ation record ed. [address] [facility], [place], [address], 11/03/2023 19:49:55 11/23/19 24 11/23/2023 XR, chest , 2 view No observ ation record ed. [address] [address], [place], [address], 12/12/2023 08:24:29 11/28/19 24 11/27/2023 US, renal No observ ation record ed. [address], [place], [address], 12/12/2023 08:24:52 12/25/19 24 12/25/2023 CT, cervi salvador spine , w/o contr ast No observ ation record ed. [address], [place], [address], 01/17/2024 17:09:59 12/25/19 24 12/25/2023 CT, lumba r spine , w/o contr ast No observ ation record ed. [address], [place], [address], 01/17/2024 17:10:24 02/15/20 24 02/15/2024 XR, knee No observ ation record ed. [email or web address] [address] [facility], [place], [address], 02/28/2024 15:19:09 07/13/19 25 07/12/2024 XR, hip, unila teral , 2 or 3 view No observ ation record ed. [address] [facility], [place], [address], 07/16/2024 10:17:20 09/03/19 25 09/01/2024 MRI, lumba r spine , w/o contr ast No observ ation record ed. [email or web address] [address], [place], [address], 09/02/2024 12:00:55 09/03/19 25 09/01/2024 MRI, hip, w/o contr ast No observ ation record ed. [address] [facility], [place], [address], 09/02/2024 14:13:17 11/20/19 25 11/19/2024 XR, shoul maynor, 2 or more view No observ ation record ed. [email or web address] [address], [place], [address], 11/20/2024 10:21:18 Result Notes None recorded. Problems Name Problem SNOMED Code Status Onset Date Resolution Date Notes Provider Name and Address Organization Details Recorded Time Osteoarthr itis 298526369 Active Not Available [employer] 3 21:17:37 Hematochez ia 417993682 Active 2020 Not Available [employer] 3 21:17:37 Psoriasis 2515464 Active 2020 Not Available [employer] 3 21:17:37 Vitamin D deficiency 00461789 Active 2022 El Plaza MD [address] [place] [address], [facility] [address], [place], [address] , [facility] [employer] [facility] 3 17:27:42 Iron deficiency anemia 68741647 Active 2022 El Plaza MD [address], [address], [place], [address] , [place] [facility] 3 17:27:49 Cobalamin deficiency 816861070 Active 2022 El Plaza MD [address], [address], [place], [address] , [place] [facility] 3 17:27:57 Fatigue 03221110 Active 2022 El Plaza MD [address], [address], [place], [address] , [place] [facility] 3 17:28:42 Bone pain 65045516 Active 2022 El Plaza MD [address], [address], [place], [address] , [place] [facility] 3 17:31:00 Tremor 36781752 Active 2022 El Plaza MD [address], [address], [place], [address] , [place] [facility] 3 17:33:55 Deviated nasal septum 136776309 Active 2022 Jamal Pak MD [address], [address], [place], [address] , [facility] 3 15:46:22 Folliculit is 20887329 Active 2022 Jamal Pak MD [address], [address], [place], [address] , [place] [facility] 3 15:46:31 Hemorrhoid s 92366667 Active 2022 El Plaza MD [address], [address], [place], [address] , [place] [facility] 3 15:51:32 Psoriatic arthritis 902969891 Active 2022 El Plaza MD [address], [address], [place], [address] , [employer] [facility] 3 17:55:14 Pain of bilateral knee joints 6920253144828 04 Active 2023 El Plaza MD [address], [address], [place], [address] , [employer] [facility] 4 16:32:35 Serum creatinine above reference range 180978644 Active 2023 El Plaza MD [address], [address], [place], [address] , [employer] [facility] 4 16:55:11 Cellulitis of lower limb 030346444 Active 2023 VENITA Lancaster [address], [address], [place], [address] , [employer] [facility] 4 14:45:48 Pain of left hip joint 6726024800967 00 Active 2024 DANIELA Lagos [address], [address], [place], [address] , [employer] [facility] 5 15:26:49 Actinic keratosis 351044544 Active 2024 DANIELA Lagos [address], [address], [place], [address] , [employer] [facility] [employer] [facility] 5 15:35:46 Lumbar spondylosi s 713518060 Active 2024 VENITA Lancaster [address], [address], [place], [address] , [employer] [facility] [employer] [facility] 5 10:24:12 Problem Notes None recorded. Procedures Surgical History Date Name Laterality Status Provider Name and Address Organization Details Recorded Time 09/22/19 23 hemorrhoidectomy completed Yolis Lópeziner GA [employer] [facility] [employer] [facility] 10/04/2022 11:18:19 Imaging Results None recorded. Procedure Notes None recorded. Medical Equipment None Reported. Allergies Allergen ID Allergen Name Allergen Category Reaction Reaction Severity Criticality Documentation Date Start Date Code Code System Note Provider Name and Address Organization Details Recorded Time 18831 lidocaine medicatio n other Not available Not available 08/17/2022 6387 RxNorm Extre me shaki ng Not Available [facility] 3 21:19:03 42038 codeine medicatio n Not available Not available Not available 08/17/2022 2670 RxNorm Itchi ng, sleep lessn ess Not Available [facility] 3 21:19:03 33180 adhesive tape environme nt,medica tion rash Not available Not available 08/17/2022 Need paper tape Not Available [facility] 3 21:19:03 59265 Adhesive agent (substanc e) environme nt,medica tion rash Not available [facility] 05/05/20252022 36808 0007 SNOMED Not Available [place] - [employer] - prod 5 19:59:54 Medications Name Sig Start Date Stop Date [...] completed Not Available Not Available Not Available cefpodoxi me 200 mg tablet TAKE 1 TABLET BY MOUTH EVERY 12 HOURS. MUST ADMINIST ER WITH A MEAL/ROXY D active Not Available Not Available No t Available Lidocaine Viscous 2 % mucosal solution [...] administ ered by the provider 08/19 completed [facility]: 0003-049 10-06 Not Available Not Available Not Available benzonata [...] Not Available Not Available hydroxyzi ne HCl 10 mg tablet TAKE 1 TABLET BY MOUTH EVERY DAY AT BEDTIME NEEDED FOR ITCHING active Not Available Not Available No t Available cefdinir 300 mg capsule 08/26 completed [...] office by the doctor 12/23 completed NDC: [id number] 001 Not Available Not Available Not Available nitrofura ntoin monohydra te/macroc rystals 100 mg capsule Take 1 capsule every 12 hours by oral route for 10 days. active Not Available Not Available No t Available duloxetin e 30 mg capsule,d elayed release 06/28 completed Not Available Not Available Not Available duloxetin e 60 mg capsule,d elayed release TAKE 1 CAPSULE EVERY DAY 2024 active Not Available Not [...] Reported Respiratory rate Heart rate Oxygen saturation Systolic And Diastolic Provider Name and Address Organization Details Last Updated DateTime 5 69852.5 5 g 23.8 kg/m2 162.56 cm 97.3 [degF] 8 24 /min 79 /min 97 % 150/88 mm[Hg] Gretchen Zamorano RN [facility] [employer] [facility] 5 15:07:15 Date Recorded Body height Body mass index (BMI) Body weight Body temperature Heart rate Oxygen saturation Systolic And Diastolic Provider Name and Address Organization Details Last Updated DateTime 3 162.56 cm 25.4 kg/m2 35280.6 7 g 98.6 [degF] 76 /min 99 % 128/84 mm[Hg] Ramon Crowe [facility] [employer] [facility] 3 17:16:44 Date Recorded Body height Body mass index (BMI) Body weight Body temperature Provider Name and Address Organization Details Last Updated DateTime 09/08/2022 162.56 cm 25.1 kg/m2 21035.49 g 97.6 [degF] El Patino [facility] [employer] [facility] 09/08/2022 15:30:10 Date Recorded Body height Body mass index (BMI) Body weight Body temperature Heart rate Oxygen saturation Systolic And Diastolic Provider Name and Address Organization Details Last Updated DateTime 3 162.56 cm 25.1 kg/m2 69759.4 9 g 97.9 [degF] 84 /min 96 % 116/80 mm[Hg] Dariana Fernandes MA [facility] [employer] [facility] 3 15:41:23 Date Recorded Body weight Body temperature Heart rate Oxygen saturation Systolic And Diastolic Provider Name and Address Organization Details Last Updated DateTime 4 89940.6 g 97.5 [degF] 64 /min 94 % 122/88 mm[Hg] Bubba Tang RN [facility] [employer] [facility] 4 14:15:46 Social History Question Answer Notes LastModified by Organization Details LastModified Time Tobacco Smoking Status Never Smoker Not Available [facility] 08/17/2022 21:17:11 Are You Blind Or Do You Have Difficulty Seeing? No Information not available 07/02/2024 What Is Your Level Of Caffeine Consumption? None MIGRATION.0301 [id number] Information not available 08/17/2022 In The 14 Days Before Symptom Onset, Have You Had Close Contact With A Laboratory-confi rmed COVID-19 While That Case Was Ill? No MIGRATION.0301 [id number] Information not available 08/17/2022 In The 14 Days Before Symptom Onset, Have You Had Close Contact With A Person Who Is Under Investigation For COVID-19 While That Person Was Ill? No MIGRATION.0301 [id number] Information not available 08/17/2022 Are You Deaf Or Do You Have Serious Difficulty Hearing? Yes Hearing Aids That Do Not Work Information not available 07/02/2024 What Type Of Diet Are You Following? REGULAR MIGRATION.0301 [id number] Information not available 08/17/2022 Which Illicit Or Recreational Drugs Have You Used? None MIGRATION.0301 850291 Information not available 08/17/2022 Have There Been Any Changes To Your Family Or Social Situation? No Information not available 07/02/2024 [facility] not available 07/02/2024 What Was The Date Of Your Most Recent Tobacco Screening? 12/23/2020 MIGRATION.0301 [id number] Information not available 08/17/2022 Do You Have [...] is your level of alcohol consumption? None MIGRATION.08208 00011 Information not available 08/17/2022 Do you or have you ever used smokeless tobacco? Never used smokeless tobacco MIGRATION.74100 34170 Information not available 08/17/2022 Are you currently employed? No Information not available 07/02/2024 Do you have transportation difficulties? Yes states she can drive Information not available 07/02/2024 Are you able to walk independently without assistance or assistive devices? [employer]IT Information not available 07/02/2024 Do you have difficulty doing errands alone? No doesn't do errands Information not available 07/02/2024 Are you able to care for yourself independently? Yes Information not available 07/02/2024 What is your occupation? retired MIGRATION.48067 00455 Information not available 08/17/2022 Do you have difficulty dressing, bathing, grooming, or toileting? No Information not available 07/02/2024 Do you or have you ever used e-cigarettes or vape? Never used electronic cigarettes MIGRATION.52179 72488 Information not available 08/17/2022 What is your exercise level? None MIGRATION.31246 17697 Information not available 08/17/2022 Mental Status Question Answer Note LastModified by Organizat ion Details LastModified Time Do you feel stressed (tense, restless, nervous, or anxious, or unable to sleep at night)? [id number] Information not available 07/02/2024 Do you have difficulty concentrating, remembering or making decisions? No Information no t available 07/02/2024 Family History Relationship Description Onset Age of this Age Resolved Age Notes LastModified by Organization Details LastModified Time Mother Hypertensive disorder MIGRATION.911 [id number] Not available 08/17/2022 21:17:13 Mother Diabetes mellitus MIGRATION.195 [id number] Not available 08/17/2022 21:17:13 Medical History Condition [...] Diagnosis SNOMED-CT Code Diagnosis ICD10 Code Diagnosis IMO Codes Diagnosis Note [id number] El Plaza MD [facility] Primary [facility] [place] [address] [facility] [place] [address] 12/17/2020 00:00:00 12/17/2020 11:47:16 [id number] JULIAN Bennett [facility] [place] [address] [place] [address] 12/23/2020 00:00:00 12/23/2020 13:14:58 [id number] El Plaza MD [facility] Primary [facility] [place] [address] [facility] [address] [address] [place] [address] 12/30/2020 00:00:00 01/15/2021 07:54:56 [id number] El Plaza MD [facility] Primary [facility] [place] [address] [facility] [address] [address] [place] [address] 01/14/2021 00:00:00 01/14/2021 15:34:07 [id number] JULIAN Bennett [facility] [place] [address] [place] [address] 02/04/2021 00:00:00 02/04/2021 14:46:10 [id number] JULIAN Markham [facility] Primary [facility] [place] [address] [facility] [address] [address] [place] [address] 03/15/2021 00:00:00 03/15/2021 17:07:40 [id number] El Plaza MD [facility] Primary [facility] [place] [address] [facility] [address] [place] [address] 08/19/2021 00:00:00 09/15/2021 18:51:12 [id number] El Plaza MD [facility] Primary [facility] [place] [address] [place] [address] 10/25/2021 00:00:00 10/25/2021 13:24:38 [id number] El Plaza MD [facility] Primary [facility] [place] [address] [place] [address] 11/22/2021 00:00:00 12/15/2021 10:56:57 [id number] El Plaza MD [facility] Primary [facility] [place] [address] [place] [address] 12/27/2021 00:00:00 01/14/2022 12:59:25 [id number] El Plaza MD [facility] Primary [facility] [place] [address] [place] [address] 01/17/2022 00:00:00 01/17/2022 14:48:08 [id number] El Plaza MD [facility] Primary [facility] [place] [address] [place] [address] 03/01/2022 00:00:00 03/01/2022 14:58:10 [id number] El Plaza MD [facility] Primary Care [place] [address] [place] [address] 06/28/2022 00:00:00 06/28/2022 09:44:40 [id number] El Plaza MD [facility] Primary Care [place] [address] [place] [address] 07/28/2022 00:00:00 07/28/2022 11:45:26 [id number] El Plaza MD [facility] Primary [facility] [place] [address] [place] [address] 08/30/2022 17:08:33 08/30/2022 17:43:33 Vitamin D deficiency 59951245 E55.9 Iron defic iency anemia 37085248 D50.9 Cobalamin deficiency 190 278299 E53.8 Psoriasis 2187619 L40.9 Z79.899 Fatigue 67829360 R53.83 Bone pain 85183267 M89.8 X9 N95.1 Tremor 63767313 R25.1 R27.8 ? parkinsoni sm Menopausal and postmenopausal disorders 308259803 N95.9 [id number] Jamal Pak MD [facility] [place] [address] [place] [address] 09/08/2022 15:20:39 09/08/2022 15:52:07 Deviated nasal septum 704955640 J34.2 Folliculitis 88143301 L7 3.9 [id number] El Plaza MD [facility] Primary Care [facility] [address] [facility] [address] [place] [address] 10/05/2022 15:19:59 10/05/2022 15:57:58 Hemorrhoids 39133928 K64.9 [id number] JOSE LancasterP-C [facility] Primary Care [facility] [address] [facility] [address] [place] [address] 04/29/2024 14:02:13 04/29/2024 15:33:01 Psoriasis 7778614 L40.9 Otezal paperwork for the upcoming year filled out and handed back to patient. Renewal of prescription 173141383 Z76.0 Psoriatic arthritis 1563 02452 L40.50 Cellulitis of lower limb 823590971 L03.119 Will treat as listed below, discussed antibiotic therapy with patient. Patient aware to take medication with food and to drink plenty of water while taking this medication .Patient instructed to contact surgeon today regarding symptoms and treatment of cellulitis . Osteoarthritis 329210178 M19.90 Not well controlled , per patient.Di scussed pain management referral with patient, patient refuses at this time. [id number] Edward Corbett MD [facility] [address] [place] [address] 07/02/2024 14:44:47 07/03/2024 10:37:40 Pain of left hip joint 0223727516 86194 M25.552 Actinic keratosis 007 L57.0 Right breast, 7 o'clock Health Concerns Section Related Observation LastModified by Organization Nayla ls LastModified Time None Recorded Concern Status LastModified by Organization Details LastModified Time None Recorded Advance Directives Directive None Recorded Payers Insurance Date Sequence Insurance Name Policy Number Policy Hernandez Covered Member ID Hernandez Member ID Guarantor Name 07/09/2024 1 [employer] - GOLD PLUS (MEDICARE REPLACEMENT/ ADVANTAGE - HMO) Alissa Hutchinson [id number] Alissa Hutchinson Notes Date Note Type Note Provider Name and Address Organization Details Recorded Time 08/30/2022 text/html ROS as noted in the HPI taking otezla and is tapering down off methotrexate (down to [...] September 21 El Plaza MD [address], [address] [address], [place], [address], [employer] 09/16/2022 11:05:22 09/08/2022 text/html this patient reports that her nose runs and that she has bleeding and left-sided nasal obstruction this has been going on for years but she did fall 2 months ago and landed on her face. She has been using Vaseline but no azkn-jso-sfdqbyo medications she also reports that her voice changes some time to time that she has occasional throat pain as well. She also reports that she has occasional right ear pain which lasts for brief periods. Jamal Pak MD [address], [facility] [address], [place], [address], [employer] 09/08/2022 15:47:06 10/05/2022 text/html ROS as noted in the HPI currently on otezla and is having some sores on face, she blames it on stress regarding surgery had hemorrhoid surgery on 09/22, still bleeding since then, saw Dr. Martinez on Monday in f/u, was told it was healing. She has pain with bowel movements and has f/u with Dr. Martinez in 2 weeks. El Plaza MD [address] [facility], [facility] [address], [place], [address], [employer] 10/14/2022 15:28:16 04/29/2024 text/html ROS as noted in the HPI Patient is a 79 year old female [...] of breath. VENITA Lancaster [address], [facility] [address], [place], [address], [employer] 04/29/2024 20:58:40 07/02/2024 text/html Alissa Hutchinson is an 79 year old female patient here today for pain. She states she has excruciating stabbing pains in her left hip. It will cause her to double over.She does have some oxycodone from a knee surgery on 02/15/24, but finds this keeps her awake. She has concerns with a brown spot on her right breast Lena Sevilla, [employer] SPECIAL[employer] [address], [place], [address], [place] [facility] [place] [employer] [facility] 07/02/2024 16:56:05 OBGyn Episode No OBEpisode recorded.
[2025-05-20 14:54] LABS: Thyroid Stimulating Hormone Reflex 1.230 uIU/mL (0.465-4.68)
[2025-05-20 14:58] LABS: Ferritin 119.00 ng/mL (11.1-264)
== END 2025-05-20 13:44 | disposition home or self-care (01) ==
LOC: ANHLAB 13:45
PROVIDERS: PCP Nurse Practitioner Family; Visit Provider Nurse Practitioner Family
DX: D64.9 Anemia, unspecified (principal); D50.9 Iron deficiency anemia, unspecified; R73.09 Other abnormal glucose; R53.83 Other fatigue; Z13.29 Encounter for screening for other suspected endocrine disorder
CPT/HCPCS: 36415; 80053; 81001; 82728; 83036; 83540; 83550; 84443; 85025

== ENCOUNTER → 2025-06-02 13:52 | Outpatient (CLI) | payer MEDICARE, SELFPAY ==
--- NOTE | ~2025-06-02 | XR_ITS ---
EXAMINATION: XR chest 2V, 06/02/2025 14:08 PHOTO INTERN HISTORY: R06.02 - Shortness of breath COMPARISON: No comparisons available. Technique: 2 views obtained. Findings: The lungs are clear, no effusion. No pneumothorax. Heart is normal size. Mediastinal and hilar contours are within normal limits. Bony thorax no acute abnormality. Impression: No acute cardiopulmonary abnormality. Reviewed, dictated and finalized at location P. O INTERN Impression: No acute cardiopulmonary abnormality.
== END ==
LOC: EXPTRAD 13:54
PROVIDERS: PCP Nurse Practitioner Family; Visit Provider Nurse Practitioner Family
DX: R06.02 Shortness of breath (principal)
CPT/HCPCS: 71046